=== PATIENT | male | born 1965 | race Caucasian/White ===

== ENCOUNTER 2019-03-02 17:44 | Emergency (ER) | payer MEDICARE, MEDICAID ==
[~2019-03-02] VITALS: Ht 172.7 cm; Wt 86.1 kg
[~2019-03-02 17:44] MED LIST: ALBU17IN INH; ARTHROTEC PO; BUPRPOW2 XX; CEPH2CAP PO; FLEXERIL PO; IBUP600T OR; IBUP80TA PO; NEUR100C OR; PERC10TA26 PO; TRAM50TA2 OR; VICO5TAB OR; VICODINES TAB OR; [UNRECOGNIZED DRUG - OTHER]; suboxone OR; tps cream TD
[2019-03-02] MEDS ORDERED: PRED20TA PO ×2 (17:54→21:07)
[2019-03-02 21:13] VITALS: BP 128/79
== END 2019-03-02 21:14 | disposition home or self-care (01) ==
LOC: M ED 17:44
DX: Z76.0 Encounter for issue of repeat prescription (principal); L30.9 Dermatitis, unspecified; F17.200 Nicotine dependence, unspecified, uncomplicated; Z79.52 Long term (current) use of systemic steroids

== ENCOUNTER 2019-07-16 10:25 | Emergency (ER) | payer MEDICARE, MEDICAID ==
[~2019-07-16] VITALS: Ht 172.7 cm; Wt 87.0 kg
[~2019-07-16 10:25] MED LIST changes: +PRED20TA PO
[2019-07-16] MEDS ORDERED: IPRATROPIUM 0.5MG/ALBUTEROL 2.5MG INH SOL UD 3ML (DUONEB)(J7620) NEB ONE (10:45)
[2019-07-16 10:58] LABS: BASO # 0.1 10^3/uL (0.0-0.2); BASO % 0.7 % (0.0-1.0); EOS # 0.3 10^3/uL (0.0-0.50); EOS % 4.3 % (0.0-3.0); HEMATOCRIT 45.7 % (42.0-52.0); HEMOGLOBIN 15.5 g/dl (13.5-17.5); LYMPH # 1.4 10^3/uL (1.5-4.5); LYMPH % 18.7 % (24.0-44.0); MEAN CORPUSCULAR HEMOGLOBIN 31.5 pg (27.0-33.0); MEAN CORPUSCULAR HGB CONC 33.9 g/dl (32.0-36.5); MEAN CORPUSCULAR VOLUME 92.9 fl (80.0-96.0); MONO # 0.6 10^3/uL (0.0-0.8); MONO % 8.9 % (0.0-5.0); NEUTROPHILS # 4.9 10^3/uL (1.8-7.7); NEUTROPHILS % 67.1 % (36.0-66.0); PLATELET COUNT, AUTOMATED 269 10^3/uL (150-450); RED BLOOD COUNT 4.92 10^6/uL (4.30-6.10); WHITE BLOOD COUNT 7.2 10^3/uL (4.0-10.0)
[2019-07-16 11:17] LABS: BLOOD UREA NITROGEN 12 MG/DL (7-18); CALCIUM LEVEL 9.1 MG/DL (8.5-10.1); CARBON DIOXIDE LEVEL 27 MEQ/L (21-32); CHLORIDE LEVEL 106 MEQ/L (98-107); CREATININE FOR GFR 0.81 MG/DL (0.70-1.30); GLOMERULAR FILTRATION RATE > 60.0 (>56); GLUCOSE, FASTING 101 MG/DL (70-100); POTASSIUM SERUM 4.3 MEQ/L (3.5-5.1); SODIUM LEVEL 139 MEQ/L (136-145)
--- NOTE | 2019-07-16 12:13 | REP ---
REASON: Productive cough. COMPARISON: None. FINDINGS: The superior mediastinal structures are midline. The cardiac silhouette is unremarkable in size, shape, and position. The diaphragmatic surfaces of the lungs are regular, and the costophrenic angles are clear. The pulmonary leal are clear. The imaged osseous structures are intact. IMPRESSION: There is no acute cardiopulmonary disease. Electronically Signed by Harvinder Miller DO 07/16/2019 12:19 P
[2019-07-16] MEDS ORDERED: SYMB16INH INH (12:15)
[2019-07-16] MEDS ORDERED: BENZ200C70 PO (12:15)
[2019-07-16 12:22] VITALS: BP 139/82
== END 2019-07-16 12:23 | disposition home or self-care (01) ==
LOC: M ED 10:25
DX: J40 Bronchitis, not specified as acute or chronic (principal); F17.210 Nicotine dependence, cigarettes, uncomplicated

== ENCOUNTER 2019-08-18 13:21 | Emergency (ER) | payer MEDICARE, MEDICAID ==
[~2019-08-18] VITALS: Ht 172.7 cm; Wt 90.9 kg
[~2019-08-18 13:21] MED LIST changes: +BENZ200C70 PO; +SYMB16INH INH
[2019-08-18] MEDS ORDERED: VENTAER INH (14:10)
[2019-08-18] MEDS ORDERED: ZITHTAB PO (14:10)
[2019-08-18] MEDS ORDERED: PRED20TA PO (14:10)
[2019-08-18 14:33] VITALS: BP 127/82
--- NOTE | 2019-08-18 15:26 | REP ---
CHEST, TWO VIEWS: There is no evidence of acute infiltrate. No pleural effusion is seen. The heart is normal in size. The mediastinal silhouette is unremarkable. The visualized osseous structures are intact. There are mild degenerative changes of the spine. IMPRESSION: No acute pulmonary disease. Electronically Signed by Modesto Wylie MD 08/18/2019 04:01 P
== END 2019-08-18 14:31 | disposition home or self-care (01) ==
LOC: M ED 13:21
DX: J20.9 Acute bronchitis, unspecified (principal); F17.210 Nicotine dependence, cigarettes, uncomplicated

== ENCOUNTER 2019-10-24 13:50 | Emergency (ER) | payer MEDICAID, MEDICARE ==
[~2019-10-24] VITALS: Ht 172.7 cm; Wt 85.8 kg
[~2019-10-24 13:50] MED LIST changes: +VENTAER INH; +ZITHTAB PO
[2019-10-24] MEDS ORDERED: ACET-683 PO (15:30)
[2019-10-24] MEDS ORDERED: CYCL5TAB PO (15:30)
[2019-10-24] MEDS ORDERED: IBUP-1022 PO (15:30)
[2019-10-24] MEDS ORDERED: BACLOFEN 10 MG TAB PO ONE (15:30)
[2019-10-24] MEDS ORDERED: PERCOCET 5MG/325MG TAB PO ONE (15:30)
[2019-10-24] MEDS ORDERED: KETOROLAC 30 MG/ML VIAL (J1885) IM ONE (15:30)
[2019-10-24 15:35] VITALS: BP 120/73
== END 2019-10-24 15:56 | disposition home or self-care (01) ==
LOC: M ED 13:50
DX: G89.29 Other chronic pain (principal); M54.5 Low back pain; M54.6 Pain in thoracic spine; F17.210 Nicotine dependence, cigarettes, uncomplicated
CPT/HCPCS: 96372; 99283; J1885

== ENCOUNTER 2019-12-22 13:41 | Emergency (ER) | payer MEDICARE, MEDICAID ==
[~2019-12-22] VITALS: Ht 175.3 cm; Wt 87.5 kg
[~2019-12-22 13:41] MED LIST changes: +ACET-683 PO; +CYCL5TAB PO; +IBUP-1022 PO
[2019-12-22] MEDS ORDERED: MUCI600T31 PO (13:46)
[2019-12-22 15:00] LABS: INFLUENZA A AMPLIFICATION NEGATIVE (NEGATIVE); INFLUENZA B AMPLIFICATION NEGATIVE (NEGATIVE)
[2019-12-22] MEDS ORDERED: IPRATROPIUM 0.5MG/ALBUTEROL 2.5MG INH SOL UD 3ML (DUONEB)(J7620) NEB ONE (16:15)
[2019-12-22] MEDS ORDERED: ALBUTEROL SULFATE 2.5 MG/0.5 ML INH NEB SOLN INH ONE (16:15)
[2019-12-22] MEDS ORDERED: predniSONE 20 MG TAB PO ONE (16:15)
--- NOTE | 2019-12-22 16:59 | REP ---
CHEST, TWO VIEWS: There is no evidence of acute infiltrate. No pleural effusion is seen. The heart is normal in size. The mediastinal silhouette is unremarkable. The visualized osseous structures are intact. There are degenerative changes of the spine. IMPRESSION: No acute pulmonary disease. Electronically Signed by Modesto Wylie MD 12/23/2019 10:27 P
[2019-12-22] MEDS ORDERED: PRED20TA PO (17:15)
[2019-12-22] MEDS ORDERED: DOXYCYCLINE HYCLATE 100 MG TAB PO ONE (17:15)
[2019-12-22] MEDS ORDERED: PROAAER10 INH (17:15)
[2019-12-22] MEDS ORDERED: DOXY-350 PO (17:15)
[2019-12-22 17:24] VITALS: BP 128/72
== END 2019-12-22 17:30 | disposition home or self-care (01) ==
LOC: M ED 13:41
DX: J20.9 Acute bronchitis, unspecified (principal); J45.909 Unspecified asthma, uncomplicated; R19.7 Diarrhea, unspecified; F17.210 Nicotine dependence, cigarettes, uncomplicated; Z79.51 Long term (current) use of inhaled steroids; Z79.899 Other long term (current) drug therapy

== ENCOUNTER 2020-06-22 18:25 | Emergency (ER) | payer MEDICARE, MEDICAID ==
[~2020-06-22 18:25] MED LIST changes: +DOXY-350 PO; +MUCI600T31 PO; +PROAAER10 INH
[2020-06-22] MEDS ORDERED: NORCO, ANEXSIA 5/325MG TABLET (HYDROcodone/ACETAMINOPHEN) ONE (21:17)
[2020-06-22] MEDS ORDERED: NORCO, ANEXSIA 5/325MG TABLET (HYDROcodone/ACETAMINOPHEN) As Ordered ONE (21:17)
[2020-06-22] MEDS ORDERED: NORCO 5/325MG TABLET (BULK FOR ED) ONE (21:17)
[2020-07-31 09:16] LABS: BASO # 0.1 10^3/uL (0.0-0.2); BASO % 0.9 % (0.0-1.0); EOS # 0.4 10^3/uL (0.0-0.5); EOS % 5.3 % (0.0-3.0); HEMATOCRIT 39.4 % (42.0-52.0); HEMOGLOBIN 13.3 g/dl (13.5-17.5); LYMPH # 1.9 10^3/uL (1.5-5.0); LYMPH % 22.9 % (24.0-44.0); MEAN CORPUSCULAR HEMOGLOBIN 31.6 pg (27.0-33.0); MEAN CORPUSCULAR HGB CONC 33.8 g/dl (32.0-36.5); MEAN CORPUSCULAR VOLUME 93.6 fl (80.0-96.0); MONO # 0.7 10^3/uL (0.0-0.8); MONO % 8.7 % (0.0-5.0); NEUTROPHILS % 61.8 % (36.0-66.0); PLATELET COUNT, AUTOMATED 202 10^3/uL (150-450); RED BLOOD COUNT 4.21 10^6/uL (4.30-6.10); WHITE BLOOD COUNT 8.1 10^3/uL (4.0-10.0)
[2020-07-31 09:21] LABS: ERYTHROCYTE SEDIMENTATION RATE 2 mm/hr (0-20)
[2020-09-04 11:34] LABS: ALBUMIN 3.8 GM/DL (3.2-5.2); ALT/SGPT 29 U/L (12-78); BILIRUBIN,TOTAL 0.3 MG/DL (0.2-1.0); BLOOD UREA NITROGEN 19 MG/DL (7-18); CALCIUM LEVEL 8.4 MG/DL (8.5-10.1); CARBON DIOXIDE LEVEL 29 MEQ/L (21-32); CHLORIDE LEVEL 110 MEQ/L (98-107); CREATININE FOR GFR 0.85 MG/DL (0.70-1.30); GLOMERULAR FILTRATION RATE > 60.0 (>56); GLUCOSE, FASTING 112 MG/DL (70-100); POTASSIUM SERUM 3.8 MEQ/L (3.5-5.1); SODIUM LEVEL 143 MEQ/L (136-145); TOTAL PROTEIN 6.9 GM/DL (6.4-8.2)
== END 2020-06-22 23:48 | disposition home or self-care (01) ==
LOC: M ED 18:25
DX: M25.551 Pain in right hip (principal); F17.210 Nicotine dependence, cigarettes, uncomplicated

== ENCOUNTER 2020-11-24 08:22 | Emergency (ER) | payer SELFPAY ==
[~2020-11-24] VITALS: Ht 172.7 cm; Wt 86.3 kg
[2020-11-24] MEDS ORDERED: predniSONE 20 MG TAB PO ONE (08:45)
[2020-11-24] MEDS ORDERED: FLYP1MIS XX (09:11)
[2020-11-24] MEDS ORDERED: PRED20TA PO (09:12)
[2020-11-24] MEDS ORDERED: ALBU83IN INH (09:12)
--- NOTE | 2020-11-24 09:22 | REP ---
INDICATION: cough COMPARISON: 12/22/2019 TECHNIQUE: Portable AP view of the chest FINDINGS: The mediastinum and cardiac silhouette are stable and within normal limits for portable technique. The lung leal are clear without acute consolidation, effusion, or pneumothorax. Skeletal structures are intact. IMPRESSION: No acute cardiopulmonary process appreciated. <Electronically signed by Alistair Huff > 11/24/20 0918
[2020-11-24 09:54] VITALS: BP 136/91
--- NOTE | 2020-11-24 13:36 | ECGEPIP ---
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
== END 2020-11-24 09:56 | disposition home or self-care (01) ==
LOC: M ED 08:22
DX: J06.9 Acute upper respiratory infection, unspecified (principal); F17.200 Nicotine dependence, unspecified, uncomplicated; Z79.51 Long term (current) use of inhaled steroids; Z79.899 Other long term (current) drug therapy; Z79.52 Long term (current) use of systemic steroids; Z79.1 Long term (current) use of non-steroidal anti-inflammatories (NSAID)
CPT/HCPCS: 71045; 93005; 99284; U0003

== ENCOUNTER → 2021-01-19 | Outpatient (CLI) | payer SELFPAY ==
[~2021-01-19] MED LIST changes: +ALBU83IN INH; +FLYP1MIS XX
== END ==
LOC: M LABSMTC 12:24
PROVIDERS: ATTEND Pediatrics
DX: Z11.52 Encounter for screening for COVID-19 (principal)

== ENCOUNTER → 2021-01-30 | Outpatient (CLI) | payer SELFPAY | LOC: M LABSMTC 10:19 | PROVIDERS: ATTEND Family Medicine | DX: Z20.822 Contact with and (suspected) exposure to COVID-19 (principal) | CPT/HCPCS: C9803; U0003 ==

== ENCOUNTER 2021-04-10 06:50 | Emergency (ER) | payer SELFPAY ==
[~2021-04-10] VITALS: Ht 175.3 cm; Wt 77.8 kg
[2021-04-10] MEDS ORDERED: methylPREDNISolone 125MG 2ML VIAL IV ONE (07:45)
[2021-04-10] MEDS ORDERED: LEVALBUTEROL HFA 45MCG/ACT 15 GM INHALER INH ONE (07:45)
[2021-04-10] MEDS ORDERED: NS 1,000 ML IV ONE (07:45)
[2021-04-10 08:35] LABS: BASO # 0.1 10^3/uL (0.0-0.2); BASO % 0.6 % (0.0-1.0); EOS # 0.8 10^3/uL (0.0-0.5); EOS % 9.7 % (0.0-3.0); HEMATOCRIT 43.1 % (42.0-52.0); LYMPH # 0.9 10^3/uL (1.5-5.0); LYMPH % 10.8 % (24.0-44.0); MEAN CORPUSCULAR HEMOGLOBIN 30.2 pg (27.0-33.0); MEAN CORPUSCULAR HGB CONC 32.5 g/dl (32.0-36.5); MEAN CORPUSCULAR VOLUME 93.1 fl (80.0-96.0); MONO # 0.7 10^3/uL (0.0-0.8); MONO % 8.9 % (2.0-8.0); NEUTROPHILS # 5.7 10^3/uL (1.5-8.5); NEUTROPHILS % 69.6 % (36.0-66.0); PLATELET COUNT, AUTOMATED 228 10^3/uL (150-450); RED BLOOD COUNT 4.63 10^6/uL (4.30-6.10); WHITE BLOOD COUNT 8.2 10^3/uL (4.0-10.0)
[2021-04-10] MEDS ORDERED: guaiFENesin ER 600 MG TAB PO SCH (09:00)
[2021-04-10 09:01] LABS: ALBUMIN 3.4 GM/DL (3.2-5.2); ALT/SGPT 32 U/L (12-78); BILIRUBIN,DIRECT < 0.1 MG/DL (0.0-0.2); BILIRUBIN,TOTAL 0.1 MG/DL (0.2-1.0); BLOOD UREA NITROGEN 15 MG/DL (7-18); CALCIUM LEVEL 8.8 MG/DL (8.5-10.1); CARBON DIOXIDE LEVEL 28 MEQ/L (21-32); CHLORIDE LEVEL 107 MEQ/L (98-107); CREATININE FOR GFR 0.78 MG/DL (0.70-1.30); GLOMERULAR FILTRATION RATE > 60.0 (>56); GLUCOSE, FASTING 111 MG/DL (70-100); POTASSIUM SERUM 4.4 MEQ/L (3.5-5.1); SODIUM LEVEL 141 MEQ/L (136-145); TOTAL PROTEIN 6.8 GM/DL (6.4-8.2)
--- NOTE | 2021-04-10 09:05 | REP ---
INDICATION: DYSPNEA/COUGH COMPARISON: 11/24/2020. TECHNIQUE: PA/Lateral FINDINGS: Lungs: Clear, no infiltrate. Heart: Normal in size. Mediastinum: Mediastinal silhouette unremarkable. Pleural angles: Unremarkable.. Bones and soft tissues: There are degenerative changes of the spine. There is a mild compression deformity of a midthoracic vertebral body which is stable. IMPRESSION: No acute pulmonary disease. <Electronically signed by Modesto Wylie > 04/10/21 0901
[2021-04-10] MEDS ORDERED: KETOROLAC 30 MG/ML 1ML VIAL IV ONE (09:40)
[2021-04-10] MEDS ORDERED: ISOVUE-370 76% 100ML VIAL As Ordered ONE (09:51)
--- NOTE | 2021-04-10 10:27 | REP ---
INDICATION: pleuritic cp r/o PE. COMPARISON: Radiographs today. TECHNIQUE: CT angiogram chest performed following the intravenous administration of 100 cc of Isovue 370. Sagittal and coronal reconstruction images are performed. FINDINGS: Lungs: There are mild patchy biapical peripheral infiltrates. There are mild patchy areas of opacity in both lower lobes, right greater than left, representing atelectasis or infiltrate. There is calcified granuloma in the right lower lobe. Mediastinum: No adenopathy. Pulmonary arteries: No evidence of pulmonary embolism. Maria E: No adenopathy. Axilla: No adenopathy. Pleura: No effusion. Heart: Not enlarged. Thoracic aorta: No aneurysm or dissection. Upper abdominal structures: There is a small hiatal hernia. There are calcified granulomas in the spleen. Visualized osseous structures: There are degenerative changes of the spine. Mild old compression deformity of a midthoracic vertebral body is stable. IMPRESSION: No CT evidence of pulmonary embolism. Mild patchy biapical infiltrates. Mild patchy opacities in both lower lobes, right greater than left, representing atelectasis or infiltrate. COVID pneumonia is possible. <Electronically signed by Modesto Wylie > 04/10/21 1024
[2021-04-10] MEDS ORDERED: ALBUTEROL 90 MCG/ACT 8GM HFA INHALER INH ONE (10:50)
[2021-04-10] MEDS ORDERED: DOXYCYCLINE HYCLATE 100MG TABLET PO ONE (10:55)
[2021-04-10] MEDS ORDERED: DOXY100C37 PO (10:59)
[2021-04-10] MEDS ORDERED: MUCI600T31 PO (11:00)
[2021-04-10] MEDS ORDERED: ALBU8.5H INH (11:01)
[2021-04-10] MEDS ORDERED: MEDR1TAB PO (11:02)
[2021-04-10] MEDS ORDERED: PRED20TA PO (11:06)
[2021-04-10 11:57] VITALS: BP 151/90
== END 2021-04-10 11:59 | disposition home or self-care (01) ==
LOC: M ED 06:50
DX: J84.114 Acute interstitial pneumonitis (principal)
CPT/HCPCS: 71046; 71275; 80048; 80076; 85025; 87798; 87880; 94640; 96361; 96374; 99284; J1885; J2930; Q9967

== ENCOUNTER 2021-05-23 08:52 | Emergency (ER) | payer OTHER, MEDICAID ==
[~2021-05-23] VITALS: Ht 172.7 cm; Wt 84.1 kg
[2021-05-23 08:52] VITALS: BP 131/76
[~2021-05-23 08:52] MED LIST changes: +ALBU8.5H INH; +DOXY1CAP62 PO; +MEDR1TAB PO
[2021-05-23 10:53] LABS: BASO # 0.1 10^3/uL (0.0-0.2); BASO % 1.1 % (0.0-1.0); EOS # 0.2 10^3/uL (0.0-0.5); EOS % 2.4 % (0.0-3.0); HEMATOCRIT 48.5 % (42.0-52.0); HEMOGLOBIN 15.8 g/dl (13.5-17.5); LYMPH # 1.7 10^3/uL (1.5-5.0); LYMPH % 21.1 % (24.0-44.0); MEAN CORPUSCULAR HEMOGLOBIN 30.9 pg (27.0-33.0); MEAN CORPUSCULAR HGB CONC 32.6 g/dl (32.0-36.5); MEAN CORPUSCULAR VOLUME 94.9 fl (80.0-96.0); MONO # 0.6 10^3/uL (0.0-0.8); MONO % 8.1 % (2.0-8.0); NEUTROPHILS # 5.2 10^3/uL (1.5-8.5); NEUTROPHILS % 66.7 % (36.0-66.0); PLATELET COUNT, AUTOMATED 268 10^3/uL (150-450); RED BLOOD COUNT 5.11 10^6/uL (4.30-6.10); WHITE BLOOD COUNT 7.9 10^3/uL (4.0-10.0)
[2021-05-23 11:21] LABS: ALBUMIN 4.1 GM/DL (3.2-5.2); ALT/SGPT 30 U/L (12-78); BILIRUBIN,TOTAL 0.3 MG/DL (0.2-1.0); BLOOD UREA NITROGEN 10 MG/DL (7-18); CALCIUM LEVEL 9.1 MG/DL (8.5-10.1); CARBON DIOXIDE LEVEL 30 MEQ/L (21-32); CHLORIDE LEVEL 107 MEQ/L (98-107); CREATININE FOR GFR 0.74 MG/DL (0.70-1.30); GLOMERULAR FILTRATION RATE > 60.0 (>56); GLUCOSE, FASTING 91 MG/DL (70-100); POTASSIUM SERUM 4.5 MEQ/L (3.5-5.1); SODIUM LEVEL 140 MEQ/L (136-145); TOTAL PROTEIN 7.8 GM/DL (6.4-8.2)
[2021-05-23 11:42] LABS: HEPATITIS B SURFACE ANTIGEN NEGATIVE (NEGATIVE)
[2021-05-23 12:10] LABS: HEPATITIS B CORE ANTIBODY IGM NEGATIVE (NEGATIVE); HIV 1&2 SCREEN CENTAUR NEGATIVE (NEGATIVE)
[2021-05-23 12:11] LABS: HEPATITIS A ANTIBODY IGM NEGATIVE (NEGATIVE)
[2021-05-23 12:14] LABS: HEPATITIS C VIRUS ABY INDEX > 11.0 INDEX (<0.8)
== END 2021-05-23 10:56 | disposition home or self-care (01) ==
LOC: M ED 08:52
DX: B18.2 Chronic viral hepatitis C (principal)

== ENCOUNTER → 2021-05-24 | Outpatient (CLI) | payer MEDICAID | LOC: M OUTALCOH 07:34 | PROVIDERS: ATTEND Psychiatry & Neurology Psychiatry | DX: F11.20 Opioid dependence, uncomplicated (principal) ==

== ENCOUNTER 2021-06-12 13:00 | Outpatient (RCR) | payer OTHER, MEDICAID | END 2021-06-24 | LOC: M OUTALCOH 13:00 | PROVIDERS: ATTEND Psychiatry & Neurology Psychiatry | DX: F11.20 Opioid dependence, uncomplicated (principal); F12.10 Cannabis abuse, uncomplicated; F17.200 Nicotine dependence, unspecified, uncomplicated | CPT/HCPCS: 90834; H0038 ==

== ENCOUNTER → 2021-08-22 | Outpatient (REF) ==
--- NOTE | 2021-08-22 13:00 | REP ---
INDICATION: RT LEG + BACK PAIN COMPARISON: 02/22/2012 TECHNIQUE: AP, lateral, coned-down views of the lumbar spine. FINDINGS: Advanced multilevel degenerative changes are appreciated which appear slightly more progressive when compared to prior examination. Findings include endplate sclerosis, osteophytosis, hypertrophic facet changes, as well as chronic spondylolysis at L4-5 and L5-S1 as well as chronic compression fracture deformity at L5. IMPRESSION: Progressive advanced multilevel degenerative spondylosis. <Electronically signed by Alistair Huff > 08/22/21 1257
--- NOTE | 2021-08-22 13:06 | REP ---
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 Hardware appears in satisfactory stable position. Osseous structures are relatively normal with evidence for healed fracture of the distal femur. No acute abnormality identified by radiographic evaluation. IMPRESSION: Stable chronic posttraumatic and postoperative changes. No evidence for acute process by radiographic evaluation. <Electronically signed by Alistair Huff > 08/22/21 3494
== END ==
LOC: M PLAIMG 11:16
PROVIDERS: ATTEND Internal Medicine
DX: Z00.00 Encounter for general adult medical examination without abnormal findings (principal)

== ENCOUNTER 2021-09-30 08:16 | Inpatient (IN) | payer MEDICAID, MEDICARE ==
[~2021-09-30] VITALS: Ht 172.7 cm; Wt 85.0 kg
[~2021-09-30 08:16] MED LIST changes: +DOXY-443 PO; -DOXY1CAP62 PO
--- OUTSIDE RECORDS SUMMARY | 2021-09-30 08:21 | CCD ---
Author Author [facility] Organization [facility] Address Unknown Phone Unavailable Care Team Providers Care Transplanter Orchid Name Role Phone PAULA MARTIN MD Unavailable Unavailable PAULA MARTIN MD Unavailable Unavailable PAULA MARTIN MD Unavailable Unavailable PAULA MARTIN MD Unavailable Unavailable PAULA MARTIN MD Unavailable Unavailable PAULA MARTIN MD Unavailable Unavailable PAULA MARTIN MD Unavailable Unavailable Yesenia Martin MD Unavailable Unavailable Joey Pabon PA-C Unavailable Unavailable Joey Pabonophluis PA-C Unavailable Unavailable Joey Pabonophluis PA-C Unavailable Unavailable Joey Pabon Christopher PA-C Unavailable Unavailable Joey Pabonopher PA-C Unavailable Unavailable Joey Pabon Christopher PA-C Unavailable Unavailable Joey Pabon Christopher PA-C Unavailable Unavailable Joey Pabon Christopher PA-C Unavailable Unavailable Joey Pabon Christopher PA-C Unavailable Unavailable Joey Pabon Christopher PA-C Unavailable Unavailable Joey Pabon Christopher PA-C Unavailable Unavailable Joey Pabon Christopher PA-C Unavailable Unavailable Pabon, M Christopher PA-C Unavailable Unavailable Pabon, M Christopher PA-C Unavailable Unavailable Pabon, M Christopher PA-C Unavailable Unavailable Pabon, M Christopher PA-C Unavailable Unavailable Pabon, M Christopher PA-C Unavailable Unavailable Pabon, M Christopher PA-C Unavailable Unavailable Pabon, M Christopher PA-C Unavailable Unavailable Pabon, M Christopher PA-C Unavailable Unavailable Pabon, M Christopher PA-C Unavailable Unavailable Pabon, M Christopher PA-C Unavailable Unavailable Pabon, M Christopher PA-C Unavailable Unavailable Pabon, M Christopher PA-C Unavailable Unavailable Pabon, M Christopher PA-C Unavailable Unavailable Pabon, M Christopher PA-C Unavailable Unavailable Re-disclosure Warning The records that you are about to access may contain information from federally-assisted alcohol or drug abuse programs. If such information is present, then the following federally mandated warning applies: This information has been disclosed to you from records protected by federal confidentiality rules (42 CFR part 2). The federal rules prohibit you from making any further disclosure of this information unless further disclosure is expressly permitted by the written consent of the person to whom it pertains or as otherwise permitted by 42 CFR part 2. A general authorization for the release of medical or other information is NOT sufficient for this purpose. The Federal rules restrict any use of the information to criminally investigate or prosecute any alcohol or drug abuse patient.The records that you are about to access may contain highly sensitive health information, the redisclosure of which is protected by Article 27-F of the [facility] Public Health law. If you continue you may have access to information: Regarding HIV / AIDS; Provided by facilities licensed or operated by the [facility] Office of Mental Health; or Provided by the [facility] Office for People With Developmental Disabilities. If such information is present, then the following [facility] mandated warning applies: This information has been disclosed to you from confidential records which are protected by state law. State law prohibits you from making any further disclosure of this information without the specific written consent of the person to whom it pertains, or as otherwise permitted by law. Any unauthorized further disclosure in violation of state law may result in a fine or nursing home sentence or both. A general authorization for the release of medical or other information is NOT sufficient authorization for further disc losure. Allergies and Adverse Reactions Type Description Substance Reaction Status Data Source(s ) Drug allergy Drug allergy No Known Allergies [facility] Family History Family Member Name Family Member Gender Family Member Status Date o f Status Description Data Source(s) Unknown Unknown Encounters Encounter Providers Location Date Indications Data Source(s ) Outpatient 08/09/2021 02:40:19 PM EDT [facility] ([facility]) Outpatient Attender: Yefri Pabon PA-C 08/09/2021 02:39:46 PM EDT - 08/09/2021 04:26:50 PM EDT [facility] ([facility]) Outpatient 08/09/2021 01:56:10 PM EDT [facility] ([facility]) [place] [address] [address] 06/15/2021 12:00:00 AM EDT eCW1 ([facility]) [place] [address] [address] 06/15/2021 12:00:00 AM EDT eCW1 ([facility]) Inpatient Attender: Paula Murillo nder: PAULA MARTIN MDAdmitter: PAULA MARTIN MD [facility] 05/19/2021 07:01:00 PM EDT - 05/20/2021 11:05:00 AM EDT PSYCHOACTIVE SUBSTANCE DEPENDENCE [facility] PSYCHOACTIVE SUBSTANCE DEPENDENCE Patient discharged. Immunizations Vaccine Date Status Description Data Source(s) Moderna #2 dose COVID-19(given elsewhere) SARSCOV2 VAC 100MCG/0.5ML IM 03/13/2021 03:12:00 PM EDT completed eCW1 ([facility]) Moderna #2 dose COVID-19(given elsewhere) SARSCOV2 VAC 100MCG/0.5ML IM 03/13/2021 03:12:00 PM EDT completed eCW1 ([facility]) COVID-19 VACCINE Moderna 03/13/2021 12:00:00 AM EDT completed [facility] Vaccine Series Complete: YESThis Data wa s Submitted to [facility] Via [facility]. Moderna #1 dose COVID-19(given elsewhere) SARSCOV2 VAC 100MCG/0.5ML IM 02/10/2021 03:11:00 PM EDT completed eCW1 ([facility]) Moderna #1 dose COVID-19(given elsewhere) SARSCOV2 VAC 100MCG/0.5ML IM 02/10/2021 03:11:00 PM EDT completed eCW1 ([facility]) COVID-19 VACCINE Moderna 02/10/2021 12:00:00 AM EDT completed [facility] Vaccine Series Complete: NOThis Data was Submitted to [facility] Via Jack Erwin. Medications No Information Insurance Providers Payer name Policy type / Coverage type Policy ID Covered alliance party ID Covered alliance party's relationship to carlos Policy Carlos Plan Information MEDICAID M [id number] Self [id number] MEDICARE [id number] SP [id number] A MEDICARE [id number] SP [id number] A MEDICAID [id number] SP [id number] [facility] Medicare Medicare Part B [id number] Self [id number] Medicaid Medicaid [id number] Self [id number] MEDICARE [id number] SP [id number] EMEDNY [id number] SP [id number] MEDICARE C [id number] S [id number] MEDICAID M [id number] S [id number] MEDICAID [id number] SP [id number] MEDICARE [id number] SP [id number] MEDICARE [id number] SP [id number] A Medicare Natl Gov't Servi Medicare Primary [id number] Self MEDICAID - O/P EMERGENCY ROOM [id number] 18 [id number] MEDICARE PART A -O/P [id number] 18 [id number] SELF PAY UNAVAILABLE SP UNAVAILA BLE OTHER WORKERS COMPENSATION [id number] SP [id number] MEDICAID - CLINIC [id number] EV [id number] MEDICAID-PHYSICIAN [id number] E [id number] MEDICAID-O/P RAD ONLY [id number] 18 [id number] MEDICAID-O/P [id number] [place] [id number] SP [id number] T [id number] MEDICARE [id number] A [facility] [id number] MEDICAID [id number] Unemployed [id number] MEDICARE [id number] Unemployed [id number] SELF PAY ONLY [id number] Problems, Conditions, and Diagnoses Code Display Name Description Problem Type Effective Dates Data Source(s) J44.9 Chronic obstructive pulmonary disease, u nspecified CHRONIC OBSTRUCTIVE PULMONARY DISEASE, UNSPECIFIED Diagnosis 05/19/2021 07:01:[address] [facility] Z53.29 Procedure and treatment not carried out because of patient's decision for other reasons PROC/TRTMT NOT CRD OUT BEC PT DECISION FOR OTH REASONS Diagn osis 05/19/2021 07:01:00 PM EDT [facility] F17.210 Nicotine dependence, cigarettes, uncompl icated NICOTINE DEPENDENCE, CIGARETTES, UNCOMPLICATED Diagnosis 05/19/2021 07:01:00 PM EDT [facility] F12.20 Cannabis dependence, uncomplicated CANNABIS DEPE NDENCE, UNCOMPLICATED Diagnosis 05/19/2021 07:01:00 PM EDT [facility] F11.20 Opioid dependence, uncomplicated OPIOID DEPENDEN CE, UNCOMPLICATED Diagnosis 05/19/2021 07:01:00 PM EDT [facility] F11.21 [id number] Opioid dependence in remission Problem 06/15/2021 12:00:00 AM EDT eC1 ([facility]) B19.20 [id number] Hepatitis C virus in fection without hepatic coma, unspecified chronicity Problem 06/15/2021 12:00:00 AM EDT eCW1 ([facility]) Surgeries/Procedures No Information Results ID Date Data Source [id number] 08/09/2021 03:00:00 PM EDT [facility] Name Value Range Interpretation Code Description Data Kamila rce(s) Supporting Document(s) SARS-CoV-2 RNA Resp Ql JOANNA+probe NOT DETECTED [facility] This lab was ordered by ALYCE werner and reported by [facility]. ID Date Data Source [id number] 05/24/2021 11:16:00 PM EDT [facility] Name Value Range Interpretation Code Description Data Kamila rce(s) Supporting Document(s) Cannabinoids Confirm,Ur result . Very abnor mal (applies to non-numeric units [facility] Carboxy THC GC/MS Conf 22 ng/mL Cutoff=10 01 Performed at: [facility] [id number] Cell Changer: Yanira Cox MD, Phone: [phone] ID Date Data Source [id number] 05/19/2021 09:03:00 PM EDT [facility] Name Value Range Interpretation Code Description Data Kamila rce(s) Supporting Document(s) Opiate Screen,Urine Negative Normal (applies to non-nume candy results) [facility] Amphetamine Screen,Urine Negative Normal (applies to non -numeric results) [facility] Benzodiazepines Scrn,Ur result Negative N ormal (applies to non-numeric results) [facility] Cocaine Screen,Urine Negative Normal (applies to non-num lucas results) [facility] Methadone Screen,Urine Negative Normal (applies to non-n umeric results) [facility] Cannabinoid Screen, Ur Negative Londono [facility] Therapeutic Drug Ranges for Emergency an d Rehabilitation Threshold Levels (ng/mL) Cocaine 300 Opiates 300 Cannabinoids 50 Barbiturates 200 Benzodiazepine 200 Methadone 300 Amphetamines 1000 All positive find ings are presumptive and unconfirmed. Confirmation of positive results are performed only at request of provider. Unconfirmed results must not be used for non-medical purposes (i.e. pre-employment and legal purposes) ID Date Data Source [id number] 05/19/2021 08:48:00 PM EDT [facility] Name Value Range Interpretation Code Description Data Kamila rce(s) Supporting Document(s) Color,Urine Yellow Normal (applies to non-numeric resu lts) [facility] Clarity,Urine Clear Normal (applies to non-numeric re sults) [facility] Specific [place],Urine 1.001-1.030 Normal (applies to non- numeric results) [facility] PH,Urine 5.0-8.0 Normal (applies to non-numeric resul ts) [facility] Protein,Urine Negative Normal (applies to non-numeric re sults) [facility] Glucose,Urine (UA) Negative Normal (applies to non-numer ic results) [facility] Ketones,Urine Negative Normal (applies to non-numeric re sults) [facility] Blood,Urine Negative Normal (applies to non-numeric resu lts) [facility] Bilirubin,Urine Negative Normal (applies to non-numeric results) [facility] Urobilinogen,Urine Norm 0.2-1 Normal (applies to non-numer ic results) [facility] Leukocyte Esterase,Urine Negative Normal (applies to non -numeric results) [facility] Nitrite,Urine Negative Normal (applies to non-numeric re sults) [facility] ID Date Data Source [id number] 05/19/2021 07:10:[address] [facility] Name Value Range Interpretation Code Description Data Kamila rce(s) Supporting Document(s) Respiratory specimen severe acute respir atory syndrome coronavirus 2 (SARS-CoV-2) RNA Negative (qualifier value) [facility] This lab was ordered by [facility] miah and reported by [facility]. ID Date Data Source [id number] 05/19/2021 07:55:00 PM EDT [facility] Negative results should be treated as pr esumptive and, if inconsistent with clinical signs and symptoms or necessary for patient management, should be tested with different authorized or cleared molecular tests. Negative results do not preclude SARS-CoV-2 infection and should not be used as the sole basis for patient management decisions. Negative results should be considered in the context of a patients recent exposures, history and the presence of clinical signs and symptoms consistent with COVID-19. This test has not been FDA cleared or approved; this test has been authorized by FDA under an Emergency Use Authorization for use by laboratories certified under the Clinical Laboratory Improvement Amendments of 1988 (CLIA), 42 U.S.C. 263a, to perform moderate complexity/high complexity tests and at the Point of Care (POC), i.e., in patient care settings operating under a CLIA Certificate of Waiver, Certificate of Compliance, or Certificate of Accreditation. Factsheets for healthcare providers: https://www.fda.gov/media/237255/download Factsheets for patients: https://www.fda.gov/media/309309/download The ID NOW Instrument is a rapid molecular in vitro diagnostic test utilizing an isothermal nucleic acid amplification technology intended for the qualitative detection of nucleic acid from the SARS-CoV-2 viral RNA. THIS IS A STATE REPORTABLE COMMUNICABLE DISEASE. Manual entry verified by Itzel Lowe 05/19/211953 Test Performed By: [facility] [address] [place] [address] Director: Colleen Rudolph MD Name Value Range Interpretation Code Description Data Kamila rce(s) Supporting Document(s) ID Date Data Source [id number] 04/10/2021 08:11:00 AM EDT [facility] Name Value Range Interpretation Code Description Data Kamila rce(s) Supporting Document(s) SARS-CoV-2 (COVID 19) NEGATIVE - SARS-CoV-2 (COVID19) [facility] This lab was ordered by [facility] a nd reported by [facility]. ID Date Data Source [id number] 01/30/2021 10:45:00 AM EST [facility] Name Value Range Interpretation Code Description Data Kamila rce(s) Supporting Document(s) SARS coronavirus 2 RNA Not Detected [facility] This lab was ordered by [facility] and reported by [facility]. ID Date Data Source [id number] 01/19/2021 12:24:00 PM EST [facility] Name Value Range Interpretation Code Description Data Kamila rce(s) Supporting Document(s) SARS-CoV-2 (COVID-19) RNA [Presence] in Respiratory specimen by JOANNA with probe detection Not Detected [facility] This lab was ordered by [facility] and reported by [employer] ID Date Data Source [id number] 11/24/2020 08:51:00 AM EST [facility] Name Value Range Interpretation Code Description Data Kamila rce(s) Supporting Document(s) SARS coronavirus 2 RNA [facility] This lab was ordered by [facility] and reported by [facility]. Procedure Social History Code Duration Value Status Description Data Source(s ) Smoking 06/15/2021 12:00:00 AM EDT Current Smoker completed Curre nt Smoker eCW1 ([facility]) Smoking 06/15/2021 12:00:00 AM EDT Current Smoker completed Curre nt Smoker eCW1 ([facility]) Vital Signs ID Date Data Source UNK Name Value Range Interpretation Code Description Data Source(s) Body weight 185 [lb_av] 185 [lb_av] eCW1 ([facility]) Body height 67 [in_i] 67 [in_i] eCW1 ([facility]) Body mass index (BMI) [Ratio] 28.97 kg/m2 28.97 kg/m2 eCW1 ([facility]) Heart rate 76 /min 76 /min eCW1 ([facility]) Respiratory rate 18 /min 18 /min eCW1 ([facility]) Body temperature 97.6 [degF] 97.6 [degF] eCW1 ( [facility]) Systolic blood pressure 144 mm[Hg] 144 mm[Hg] e CW1 ([facility]) Diastolic blood pressure 78 mm[Hg] 78 mm[Hg] eCW1 ([facility]) ID Date Data Source [id number] 06/15/2021 07:40:00 AM EDT [facility] Name Value Range Interpretation Code Description Data Source(s) Weight Measurement Method 7 7 [facility] Weight (Calculated Kilograms) 81.19 81.19 [facility] Weight 2864 2864 [facility] Temperature Source 7 7 [facility] Temperature 97.2 97.2 [facility] Respiratory Effort 1 1 [facility] Respiratory Rate 16 16 [facility] Pulse Assessment Method 4 [address] [facility] Pulse Rate 75 75 [facility] Height (Calculated Centimeters) 172.72 172. 72 [facility] Height 68 68 [facility] Blood Pressure 134/83 134/83 [facility] Body Mass Index (BMI) 27.2 27.2 [facility] Weight Measurement Method 7 7 [facility] Weight (Calculated Kilograms) 81.19 81.19 [facility] Weight 2864 2864 [facility] Temperature Source 7 7 [facility] Temperature 97.2 97.2 [facility] Respiratory Effort 1 1 [facility] Respiratory Rate 16 16 [facility] Pulse Assessment Method 4 4 C [facility] Pulse Rate 75 75 [facility] Height (Calculated Centimeters) 172.72 172. 72 [facility] Height 68 68 [facility] Blood Pressure 134/83 134/83 [facility] Body Mass Index (BMI) 27.2 27.2 [facility] Weight (Calculated Kilograms) 88.45 88.45 [facility] Height (Calculated Centimeters) 175.26 175. 26 [facility] Body Mass Index (BMI) 28.8 28.8 [facility]
[2021-09-30] MEDS ORDERED: NS 1,000 ML IV ONE ×2 (08:45→10:20)
[2021-09-30] MEDS ORDERED: VANCOMYCIN HCL 750 MG, VIAL MATE ADAPTER 1 EACH in NS 250 ML IV ONE ×6 (08:45)
[2021-09-30] MEDS ORDERED: MORPHINE 4 MG/ML 1ML VIAL/SYRINGE (J2270) IV ONE (08:45)
[2021-09-30] MEDS ORDERED: ONDANSETRON 4MG/2ML VIAL IV ONE (08:45)
[2021-09-30] MEDS ORDERED: VANCOMYCIN HCL 1,500 MG in NS 250 ML IV ONE (08:45)
[2021-09-30] MEDS ORDERED: PIPERACILLIN/TAZOBACTAM SOD 4.5 GM in D5W MINI-BAG PLUS 50 ML IV ONE (08:50)
[2021-09-30 09:03] LABS: BASO # 0.1 10^3/uL (0.0-0.2); BASO % 0.4 % (0.0-1.0); HEMATOCRIT 45.5 % (42.0-52.0); HEMOGLOBIN 15.6 g/dl (13.5-17.5); LYMPH # 0.9 10^3/uL (1.5-5.0); LYMPH % 4.2 % (24.0-44.0); MEAN CORPUSCULAR HEMOGLOBIN 31.2 pg (27.0-33.0); MEAN CORPUSCULAR HGB CONC 34.3 g/dl (32.0-36.5); MONO # 1.7 10^3/uL (0.0-0.8); MONO % 7.6 % (2.0-8.0); NEUTROPHILS # 19.3 10^3/uL (1.5-8.5); PLATELET COUNT, AUTOMATED 277 10^3/uL (150-450); WHITE BLOOD COUNT 22.4 10^3/uL (4.0-10.0)
[2021-09-30] MEDS ORDERED: ISOVUE-370 76% 100ML VIAL As Ordered ONE (09:10)
--- NOTE | 2021-09-30 09:23 | REP ---
INDICATION: trauma. COMPARISON: None. TECHNIQUE: Two views FINDINGS: At the level of the junction of the middle and distal 1/3 of the humerus in the anterior soft tissues of the upper arm there is a large focus of subcutaneous air in the deep soft tissues, up to 8 x 4.7 cm. I do not see any other air nor any acute bony finding. There are degenerative changes at the glenohumeral and AC joint. Surgical clips seen in the proximal forearm. IMPRESSION: 1. Air in the soft tissues of the distal half of the forearm at the junction of the middle and distal 1/3 of the humerus in those anterior soft tissues. This is highly suspicious for soft tissue/muscular abscess. <Electronically signed by Keanu Johnson > 09/30/21 0919
--- OUTSIDE RECORDS SUMMARY | 2021-09-30 09:25 | CCD ---
Author Author [facility] Organization [facility] Address Unknown Phone Unavailable Care Team Providers Care Management Expert Name Role Phone PAULA MARTIN MD Unavailable [...] is protected by Article 27-F of the [facility] Public Health law. If you continue you may have access to information: Regarding HIV / AIDS; Provided by facilities licensed or operated by the [facility] Office of Mental Health; or Provided by the [facility] Office for People With Developmental Disabilities. If such information is present, then the following [facility] mandated warning applies: This information has been [...] law may result in a fine or detention sentence or both. A general authorization for the release of medical or other information is NOT sufficient authorization for further disc losure. Allergies and Adverse Reactions Type Description Substance Reaction Status Data Source(s ) Drug allergy Drug allergy No Known Allergies [facility] Family History Family Member Name Family Member Gender Family Member Status Date o f Status Description Data Source(s) Unknown Unknown Encounters Encounter Providers Location Date Indications Data Source(s ) Outpatient 08/09/2021 02:40:19 PM EDT [facility] ([facility]) Outpatient Attender: Yefri Pabon PA-C 08/09/2021 02:39:46 PM EDT - 08/09/2021 04:26:50 PM EDT [facility] ([facility]) Outpatient 08/09/2021 01:56:10 PM EDT [facility] ([facility]) Outpatient [address] [facility] [address] 06/15/2021 12:00:00 AM EDT eCW1 ([facility]) Unknown [address] [address] 06/15/2021 12:00:00 AM EDT eCW1 ([facility]) Inpatient Attender: Paula Murillo nder: PAULA MARTIN MDAdmitter: PAULA MARTIN MD [facility] 05/19/2021 07:01:00 PM EDT - 05/20/2021 11:05:00 AM EDT PSYCHOACTIVE SUBSTANCE DEPENDENCE [facility] PSYCHOACTIVE SUBSTANCE DEPENDENCE Patient discharged. Immunizations Vaccine Date Status Description Data Source(s) Moderna #2 dose COVID-19(given elsewhere) SARSCOV2 VAC 100MCG/0.5ML IM 03/13/2021 03:12:00 PM EDT completed eCW1 ([facility]) Moderna #2 dose COVID-19(given elsewhere) SARSCOV2 VAC 100MCG/0.5ML IM 03/13/2021 03:12:00 PM EDT completed eCW1 ([facility]) COVID-19 VACCINE Moderna 03/13/2021 12:00:00 AM EDT completed [facility] Vaccine Series Complete: YESThis Data wa s Submitted to [facility] Via [facility]. Moderna #1 dose COVID-19(given elsewhere) SARSCOV2 VAC 100MCG/0.5ML IM 02/10/2021 03:11:00 PM EDT completed eCW1 ([facility]) Moderna #1 dose COVID-19(given elsewhere) SARSCOV2 VAC 100MCG/0.5ML IM 02/10/2021 03:11:00 PM EDT completed eCW1 ([facility]) COVID-19 VACCINE Moderna 02/10/2021 12:00:00 AM EDT completed [facility] Vaccine Series Complete: NOThis Data was Submitted to [facility] Via Nichewith. Medications No Information Insurance Providers Payer name Policy type / Coverage type Policy ID Covered green party ID Covered green party's relationship to carlos Policy Carlos Plan Information MEDICAID M [id number] Self [id number] MEDICARE [id number] SP [id number] A MEDICARE [id number] SP [id number] A MEDICAID [id number] SP [id number] [facility] Medicare Medicare Part B [id number] Self [id number] Medicaid Medicaid [id number] Self [id number] MEDICARE [id number] SP [id number] [place] [id number] SP [id number] MEDICARE C [id number] S [id number] MEDICAID M [id number] S [id number] MEDICAID [id number] SP [id number] MEDICARE [id number] SP [id number] MEDICARE [id number] SP [id number] A Medicare Natl Gov't Servi Medicare Primary [id number] Self MEDICAID - O/P EMERGENCY ROOM [id number] 18 [id number] MEDICARE PART A -O/P [id number] 18 [id number] SELF PAY UNAVAILABLE SP UNAVAILA BLE OTHER WORKERS COMPENSATION [id number] SP [id number] MEDICAID - CLINIC [id number] MEDICAID-PHYSICIAN [id number] MEDICAID-O/P RAD ONLY [id number] MEDICAID-O/P [id number] 18 [id number] [id number] SP [id number] T [id number] MEDICARE [id number] A [facility] [id number] MEDICAID [id number] Unemployed [id number] MEDICARE [id number] Unemployed [id number] SELF PAY ONLY [id number] Problems, Conditions, and Diagnoses Code Display Name Description Problem Type Effective Dates Data Source(s) J44.9 Chronic obstructive pulmonary disease, u nspecified CHRONIC OBSTRUCTIVE PULMONARY DISEASE, UNSPECIFIED Diagnosis 05/19/2021 07:01:00 PM EDT [facility] Z53.29 Procedure and treatment not carried out because of patient's decision for other reasons PROC/TRTMT NOT CRD OUT BEC PT DECISION FOR OTH REASONS Diagn osis 05/19/2021 07:01:00 PM EDT [facility] F17.210 Nicotine dependence, cigarettes, uncompl icated NICOTINE DEPENDENCE, CIGARETTES, UNCOMPLICATED Diagnosis 05/19/2021 07:01:00 PM EDT [facility] F12.20 Cannabis dependence, uncomplicated CANNABIS DEPE NDENCE, UNCOMPLICATED Diagnosis 05/19/2021 07:01:00 PM EDT [facility] F11.20 Opioid dependence, uncomplicated OPIOID DEPENDEN CE, UNCOMPLICATED Diagnosis 05/19/2021 07:01:00 PM EDT [facility] F11.21 [id number] Opioid dependence in remission Problem 06/15/2021 12:00:00 AM EDT eC1 ([facility]) B19.20 [id number] Hepatitis C virus in fection without hepatic coma, unspecified chronicity Problem 06/15/2021 12:00:00 AM EDT eCW1 ([facility]) Surgeries/Procedures No Information Results ID Date Data Source [id number] 08/09/2021 03:00:00 PM [facility] Name Value Range Interpretation Code Description Data Kamila rce(s) Supporting Document(s) SARS-CoV-2 RNA Resp Ql JOANNA+probe NOT DETECTED [facility] This lab was ordered by AL[facility]ner and reported by [facility]. ID Date Data Source [id number] 05/24/2021 11:16:00 PM EDT [facility] Name Value Range Interpretation Code Description Data Kamila rce(s) Supporting Document(s) Cannabinoids Confirm,Ur result . Very abnor mal (applies to non-numeric units [facility] Carboxy THC GC/MS Conf 22 ng/mL Cutoff=10 01 Performed at: [facility] [address] [id number] Value Stream Manager: Yanira Cox MD, Phone: [phone] ID Date Data Source [id number] 05/19/2021 09:03:00 PM EDT [facility] Name Value Range Interpretation Code Description Data Kamila rce(s) Supporting Document(s) Opiate Screen,Urine Negative Normal (applies to non-nume candy results) [facility] Amphetamine Screen,Urine Negative Normal (applies to non -numeric results) [facility] Benzodiazepines Scrn,Ur result Negative N ormal (applies to non-numeric results) [facility] Cocaine Screen,Urine Negative Normal (applies to non-num lucas results) [facility] Methadone Screen,Urine Negative Normal (applies to non-n umeric results) [facility] Cannabinoid Screen, Ur Negative [place] [facility] Therapeutic Drug Ranges for Emergency an d Rehabilitation Threshold Levels (ng/mL) Cocaine 300 Opiates 300 Cannabinoids 50 Barbiturates 200 Benzodiazepine 200 Methadone 300 Amphetamines 1000 All positive find ings are presumptive and unconfirmed. Confirmation of positive results are performed only at request of provider. Unconfirmed results must not be used for non-medical purposes (i.e. pre-employment and legal purposes) ID Date Data Source [id number] 05/19/2021 08:48:00 PM EDT [facility] Name Value Range Interpretation Code Description Data Kamila rce(s) Supporting Document(s) Color,Urine Yellow Normal (applies to non-numeric resu lts) [facility] Clarity,Urine Clear Normal (applies to non-numeric re sults) [facility] Specific [place],Urine 1.001-1.030 Normal (applies to non- numeric results) [facility] PH,Urine 5.0-8.0 Normal (applies to non-numeric resul ts) [facility] Protein,Urine Negative Normal (applies to non-numeric re sults) [facility] Glucose,Urine (UA) Negative Normal (applies to non-numer ic results) [facility] Ketones,Urine Negative Normal (applies to non-numeric re sults) [facility] Blood,Urine Negative Normal (applies to non-numeric resu lts) [facility] Bilirubin,Urine Negative Normal (applies to non-numeric results) [facility] Urobilinogen,Urine Norm 0.2-1 Normal (applies to non-numer ic results) [facility] Leukocyte Esterase,Urine Negative Normal (applies to non -numeric results) [facility] Nitrite,Urine Negative Normal (applies to non-numeric re sults) [facility] ID Date Data Source [id number] 05/19/2021 07:10:00 PM EDT [facility] Name Value Range Interpretation Code Description Data Kamila rce(s) Supporting Document(s) Respiratory specimen severe acute respir atory syndrome coronavirus 2 (SARS-CoV-2) RNA Negative (qualifier value) [facility] This lab was ordered by [facility] miah and reported by [facility]. ID Date Data Source [id number] 05/19/2021 07:55:00 PM EDT [facility] Negative results should be treated as [...] Certificate of Accreditation. Factsheets for healthcare providers: https://www.fda.gov/media/352752/download Factsheets for patients: https://www.fda.gov/media/230508/download The ID NOW Instrument is a rapid molecular in vitro diagnostic test utilizing an isothermal nucleic acid amplification technology intended for the qualitative detection of nucleic acid from the SARS-CoV-2 viral RNA. THIS IS A STATE REPORTABLE COMMUNICABLE DISEASE. Manual entry verified by Itzel Lowe 05/19/211953 Test Performed By: [facility] [address] [place] [address] Director: Colleen Rudolph MD Name Value Range Interpretation Code Description Data Kamila rce(s) Supporting Document(s) ID Date Data Source [id number] 04/10/2021 08:11:00 AM EDT [facility] Name Value Range Interpretation Code Description Data Kamila rce(s) Supporting Document(s) SARS-CoV-2 (COVID 19) NEGATIVE - SARS-CoV-2 (COVID19) [facility] This lab was ordered by [facility] a nd reported by [facility]. ID Date Data Source [id number] 01/30/2021 10:45:00 AM EST [facility] Name Value Range Interpretation Code Description Data Kamila rce(s) Supporting Document(s) SARS coronavirus 2 RNA Not Detected [facility] This lab was ordered by [facility] and reported by [facility]. ID Date Data Source [id number] 01/19/2021 12:24:00 PM EST [facility] Name Value Range Interpretation Code Description Data Kamila rce(s) Supporting Document(s) SARS-CoV-2 (COVID-19) RNA [Presence] in Respiratory specimen by JOANNA with probe detection Not Detected [facility] This lab was ordered by [facility] and reported by [employer] ID Date Data Source [id number] 11/24/2020 08:51:00 AM EST [facility] Name Value Range Interpretation Code Description Data Kamila rce(s) Supporting Document(s) SARS coronavirus 2 RNA [facility] This lab was ordered by [facility] and reported by [facility]. Procedure Social History Code Duration Value Status Description Data Source(s ) Smoking 06/15/2021 12:00:00 AM EDT Current Smoker completed Curre nt Smoker eCW1 ([facility]) Smoking 06/15/2021 12:00:00 AM EDT Current Smoker completed Curre nt Smoker eCW1 ([facility]) Vital Signs ID Date Data Source UNK Name Value Range Interpretation Code Description Data Source(s) Body weight 185 [lb_av] 185 [lb_av] eCW1 ([facility]) Body height 67 [in_i] 67 [in_i] eCW1 ([facility]) Body mass index (BMI) [Ratio] 28.97 kg/m2 28.97 kg/m2 eCW1 ([facility]) Heart rate 76 /min 76 /min eCW1 ([facility]) Respiratory rate 18 /min 18 /min eCW1 ([facility]) Body temperature 97.6 [degF] 97.6 [degF] eCW1 ( [facility]) Systolic blood pressure 144 mm[Hg] 144 mm[Hg] e CW1 ([facility]) Diastolic blood pressure 78 mm[Hg] 78 mm[Hg] eCW1 ([facility]) ID Date Data Source [id number] 06/15/2021 07:40:[address] [facility] Name Value Range Interpretation Code Description Data Source(s) Weight Measurement Method 7 7 [facility] Weight (Calculated Kilograms) 81.19 81.19 [facility] Weight 2864 2864 [facility] Temperature Source 7 7 [facility] Temperature 97.[address] [facility] Respiratory Effort 1 1 [facility] Respiratory Rate 16 16 [facility] Pulse Assessment Method 4 4 [facility] Pulse Rate 75 75 [facility] Height (Calculated Centimeters) 172.72 172. 72 [facility] Height 68 68 [facility] Blood Pressure 134/83 134/83 [facility] Body Mass Index (BMI) 27.2 27.2 [facility] Weight Measurement Method 7 7 [facility] Weight (Calculated Kilograms) 81.19 81.19 [facility] Weight 2864 2864 [facility] Temperature Source 7 7 [facility] Temperature [address] [facility] Respiratory Effort 1 1 [facility] Respiratory Rate 16 16 [facility] Pulse Assessment Method 4 4 [facility] Pulse Rate 75 75 [facility] Height (Calculated Centimeters) 172.72 172. 72 [facility] Height 68 68 [facility] Blood Pressure 134/83 134/83 [facility] Body Mass Index (BMI) 27.2 27.2 [facility] Weight (Calculated Kilograms) 88.45 88.45 [facility] Height (Calculated Centimeters) 175.26 175. 26 [facility] Body Mass Index (BMI) 28.8 28.8 [facility]
--- NOTE | 2021-09-30 09:26 | REP ---
INDICATION: trauma. COMPARISON: None. TECHNIQUE: Two views FINDINGS: Forearm shows numerous surgical clips and its anterior surface most consistent with vascular graft surgery. No other soft tissue findings in the forearm. Bony structures are unremarkable. The distal upper arm shows a portion of the subcutaneous air which appears intramuscular and is seen better on the humerus series. IMPRESSION: 1. Numerous vascular clips in the soft tissues of the forearm likely from vascular graft. No forearm soft tissue abnormalities an acute basis. Visualized bones intact. The upper arm lower half shows small portion of the intramuscular/subcutaneous air present on the humerus series and representing abscess in that location. <Electronically signed by Keanu Johnson > 09/30/21 [id number]
[2021-09-30 09:30] LABS: ERYTHROCYTE SEDIMENTATION RATE 29 mm/hr (0-20)
--- NOTE | 2021-09-30 09:32 | REP ---
INDICATION: ro dvt; assess for abscess. TECHNIQUE: Multiple ultrasonographic images of the deep venous structures of the upper extremity were obtained from the brachial vein to the interrogatable portions of the subclavian vein along with color flow doppler imaging and doppler interrogation. FINDINGS: There is no evidence of abnormal echogenic material seen in any of the visualized deep venous structures of the left upper extremity. Coaptation where obtainable was achievable throughout. The exam is quite limited as the patient has significant pain and limited range of motion and the basilic vein could not be visualized. The cephalic vein of the superficial system showed flow and was compressible. Scanning through the zone of swelling in the biceps region show no definite drainable abscess collection but echogenic foci representing air as seen on the radiographs present throughout this area. There is edema within the soft tissues throughout this area. IMPRESSION: No ultrasonographic evidence of deep venous thrombosis involving the imageable portions of the deep venous structures of the left upper extremity. Exam limited by pain, limited range of motion and significant swelling. Echogenic air in the zone of swelling corresponding to the air seen on radiograph in the biceps. There is subcutaneous edema in the biceps in the same region and although no drainable abscess is present, findings suggest a phlegmon or developing infection in this region. Accredited by the [employer] in Vascular Peripheral Ultrasound. <Electronically signed by Keanu Johnson > 09/30/21 0909
[2021-09-30 09:36] LABS: RSV AMPLIFICATION NEGATIVE (NEGATIVE)
[2021-09-30] MEDS ORDERED: MORPHINE 2 MG/ML 1ML VIAL (J2270) IV ONE (09:40)
[2021-09-30 09:46] LABS: INR 1.05; PROTHROMBIN TIME 14.1 SECONDS (12.7-14.5)
[2021-09-30 09:47] LABS: PARTIAL THROMBOPLASTIN TIME 31.4 SECONDS (25.9-37.0)
--- NOTE | 2021-09-30 10:14 | REP ---
INDICATION: ro gas gangrene. COMPARISON: Soft tissue ultrasound left upper arm, left humerus and forearm series 09/30/2021. TECHNIQUE: Bolus 100 mL Isovue 370 scanning through the upper arm without arm raised over the head and including to the shoulder and upper chest. Coronal and sagittal MIP reformats with standard axial and sagittal reconstructions provided. FINDINGS: There is subcutaneous emphysema within the intramuscular biceps and into the subcutaneous soft tissues superficially centered over the junction of the mid to distal 3rd of the humerus. The area of intramuscular fizzy in measures 8.7 x 4.9 x 4.8 cm with small amounts into the subcutaneous tissues distally. Vascular flow seen in the muscle. I do not see definite air-fluid levels. Subcutaneous edema is noted around the upper arm and forearm. The left subclavian, axillary, brachial arteries in the upper arm and forearm vessels are intact. No stenosis or aneurysm defined. I do not see other areas of intramuscular subcutaneous emphysema. Bony forearm, upper arm, shoulder portions of the upper chest are intact cervical spine shows diffuse degenerative disc change. Calvarium unremarkable. No gross intracranial abnormality on this contrast enhanced study. The upper lung leal were clear. The aortic arch and great vessels off the arch are unremarkable. IMPRESSION: 1. Intramuscular air and some subcutaneous air adjacent in the left biceps without air-fluid levels. This air does not extend to the proximal upper arm or into the elbow/forearm. This represents an acute inflammatory process/infection. There is diffuse subcutaneous edema of the upper arm and forearm. Arterial vasculature is normal. Small vessels are seen extending into the biceps. 2. No other significant finding. <Electronically signed by Keanu Johnson > 09/30/21 1010
[2021-09-30] MEDS ORDERED: KETOROLAC 30 MG/ML 1ML VIAL IV ONE (10:20)
[2021-09-30] MEDS ORDERED: DEXTROSE 50% 50 ML SYRINGE IV PRN (10:20)
[2021-09-30] MEDS ORDERED: D5W/0.45% SODIUM CHLORIDE 1,000 ML IV SCH (10:20)
[2021-09-30] MEDS ORDERED: GLUCAGON INJ 1MG VIAL SC PRN (10:20)
[2021-09-30] MEDS ORDERED: GLUCOSE 4GM CHEW TABLET PO PRN (10:20)
[2021-09-30] MEDS ORDERED: HYDROMORPHONE HCL 0.5 MG/ 0.5 ML SYRINGE (J1170 PER 1) IV PRN (10:20)
--- OUTSIDE RECORDS SUMMARY | 2021-09-30 10:27 | CCD ---
Author Author [facility] Organization [facility] Address Unknown Phone Unavailable Care Team Providers Care Store Gift Wrap Associate Name Role Phone PAULA MARTIN MD Unavailable [...] is protected by Article 27-F of the [facility] Public Health law. If you continue you may have access to information: Regarding HIV / AIDS; Provided by facilities licensed or operated by the [facility] Office of Mental Health; or Provided by the [facility] Office for People With Developmental Disabilities. If such information is present, then the following [facility] mandated warning applies: This information has [...] allergy Drug allergy No Known Allergies [facility] Family History Family Member Name Family Member Gender Family Member Status Date o f Status Description Data Source(s) Unknown Unknown Encounters Encounter Providers Location Date Indications Data Source(s ) Outpatient 08/09/2021 02:40:19 PM EDT [facility] ([facility]) Outpatient Attender: Yefri Pabon PA-C 08/09/2021 02:39:46 PM EDT - 08/09/2021 04:26:50 PM EDT [facility] ([facility]) Outpatient 08/09/2021 01:56:10 PM EDT [facility] ([facility]) Outpatient [address] [facility] [address] 06/15/2021 12:00:00 AM EDT eCW1 ([facility]) Unknown [address] [facility] [facility] [address] 06/15/2021 12:00:00 AM EDT eCW1 ([facility]) Inpatient Attender: Paula Murillo nder: PAULA MARTIN MDAdmitter: PAULA MARTIN MD CPSCAORT-CHEPPDREH 05/19/2021 07:01:00 PM EDT - 05/20/2021 11:05:00 AM EDT PSYCHOACTIVE SUBSTANCE DEPENDENCE [facility] PSYCHOACTIVE SUBSTANCE DEPENDENCE Patient discharged. Immunizations Vaccine Date Status Description Data Source(s) Moderna #2 dose COVID-19(given elsewhere) SARSCOV2 VAC 100MCG/0.5ML IM 03/13/2021 03:12:00 PM EDT completed eCW1 ([facility]) Moderna #2 dose COVID-19(given elsewhere) SARSCOV2 VAC 100MCG/0.5ML IM 03/13/2021 03:12:00 PM EDT completed eCW1 ([facility]) COVID-19 VACCINE Moderna 03/13/2021 12:00:00 AM EDT completed [facility] Vaccine Series Complete: YESThis Data wa s Submitted to [facility] Via [facility]. Moderna #1 dose COVID-19(given elsewhere) SARSCOV2 VAC 100MCG/0.5ML IM 02/10/2021 03:11:00 PM EDT completed eCW1 ([facility]) Moderna #1 dose COVID-19(given elsewhere) SARSCOV2 VAC 100MCG/0.5ML IM 02/10/2021 03:11:00 PM EDT completed eCW1 ([facility]) COVID-19 VACCINE Moderna 02/10/2021 12:00:00 AM EDT completed [facility] Vaccine Series Complete: NOThis Data was Submitted to [facility] Via [employer]. Medications No Information Insurance Providers Payer name Policy type / Coverage type Policy ID Covered green party ID Covered green party's relationship to carlos Policy Carlos Plan Information MEDICAID M [id number] Self [id number] MEDICARE [id number] SP [id number] A MEDICARE [id number] SP [id number] A MEDICAID [id number] SP [id number] [facility] Medicare Medicare Part B [id number] Self [id number] Medicaid Medicaid [id number] Self [id number] MEDICARE [id number] SP [id number] [place] [id number] SP [id number] MEDICARE C [id number] S [id number] MEDICAID M [id number] S [id number] MEDICAID [id number] SP [id number] MEDICARE [id number] SP [id number] MEDICARE [id number] SP [id number] A Medicare Natl Gov't Servi Medicare Primary [id number] Self MEDICAID - O/P EMERGENCY ROOM [id number] 18 [id number] MEDICARE PART A -O/P [id number] 18 [id number] SELF PAY UNAVAILABLE SP UNAVAILA BLE OTHER WORKERS COMPENSATION [id number] SP [id number] MEDICAID - CLINIC [id number] MEDICAID-PHYSICIAN [id number] MEDICAID-O/P RAD ONLY [id number] MEDICAID-O/P [id number] 18 [id number] [id number] SP [id number] T [id number] MEDICARE [id number] A [facility] [id number] MEDICAID [id number] Unemployed [id number] MEDICARE [id number] Unemployed [id number] SELF PAY ONLY [id number] Problems, Conditions, and Diagnoses Code Display Name Description Problem Type Effective Dates Data Source(s) J44.9 Chronic obstructive pulmonary disease, u nspecified CHRONIC OBSTRUCTIVE PULMONARY DISEASE, UNSPECIFIED Diagnosis 05/19/2021 07:01:00 PM EDT [facility] Z53.29 Procedure and treatment not carried out because of patient's decision for other reasons PROC/TRTMT NOT CRD OUT BEC PT DECISION FOR OTH REASONS Diagn osis 05/19/2021 07:01:00 PM EDT [facility] F17.210 Nicotine dependence, cigarettes, uncompl icated NICOTINE DEPENDENCE, CIGARETTES, UNCOMPLICATED Diagnosis 05/19/2021 07:01:00 PM EDT [facility] F12.20 Cannabis dependence, uncomplicated CANNABIS DEPE NDENCE, UNCOMPLICATED Diagnosis 05/19/2021 07:01:00 PM EDT [facility] F11.20 Opioid dependence, uncomplicated OPIOID DEPENDEN CE, UNCOMPLICATED Diagnosis 05/19/2021 07:01:00 PM EDT [facility] F11.21 [id number] Opioid dependence in remission Problem 06/15/2021 12:00:00 AM EDT eC1 ([facility]) B19.20 [id number] Hepatitis C virus in fection without hepatic coma, unspecified chronicity Problem 06/15/2021 12:00:00 AM EDT eCW1 ([facility]) Surgeries/Procedures No Information Results ID Date Data Source [id number] 08/09/2021 03:00:00 PM [facility]T [facility] Name Value Range Interpretation Code Description Data Kamila rce(s) Supporting Document(s) SARS-CoV-2 RNA Resp Ql JOANNA+probe NOT DETECTED [facility] This lab was ordered by ALYCE werner and reported by [facility]. ID Date Data Source [id number] 05/24/2021 11:16:00 PM EDT [facility] Name Value Range Interpretation Code Description Data Kamila rce(s) Supporting Document(s) Cannabinoids Confirm,Ur result . Very abnor mal (applies to non-numeric units [facility] Carboxy THC GC/MS Conf 22 ng/mL Cutoff=10 01 Performed at: [facility] Lab[address] [id number] Engineering Clerk: Yanira Cox MD, Phone: [phone] ID Date Data Source [id number] 05/19/2021 09:03:00 PM EDT [facility] Name Value Range Interpretation Code Description Data Kamila rce(s) Supporting Document(s) Opiate Screen,Urine Negative Normal (applies to non-nume candy results) [facility] Amphetamine Screen,Urine Negative Normal (applies to non -numeric results) [facility] Benzodiazepines Scrn,Ur result Negative N ormal (applies to non-numeric results) [facility] Cocaine Screen,Urine Negative Normal (applies to non-num lucas results) [facility] Methadone Screen,Urine Negative Normal (applies to non-n umeric results) [facility] Cannabinoid Screen, Ur Negative [place]o [facility] Therapeutic Drug Ranges for Emergency an d Rehabilitation Threshold Levels (ng/mL) Cocaine 300 Opiates 300 Cannabinoids 50 Barbiturates 200 Benzodiazepine 200 Methadone 300 Amphetamines 1000 All positive find ings are presumptive and unconfirmed. Confirmation of positive results are performed only at request of provider. Unconfirmed results must not be used for non-medical purposes (i.e. pre-employment and legal purposes) ID Date Data Source [id number] 05/19/2021 08:48:00 PM EDT [facility] Name Value Range Interpretation Code Description Data Kamila rce(s) Supporting Document(s) Color,Urine Yellow Normal (applies to non-numeric resu lts) [facility] Clarity,Urine Clear Normal (applies to non-numeric re sults) [facility] Specific Severance,Urine 1.001-1.030 Normal (applies to non- numeric results) [facility] PH,Urine 5.0-8.0 Normal (applies to non-numeric resul ts) [facility] Protein,Urine Negative Normal (applies to non-numeric re sults) [facility] Glucose,Urine (UA) Negative Normal (applies to non-numer ic results) [facility] Ketones,Urine Negative Normal (applies to non-numeric re sults) [facility] Blood,Urine Negative Normal (applies to non-numeric resu lts) [facility] Bilirubin,Urine Negative Normal (applies to non-numeric results) [facility] Urobilinogen,Urine Norm 0.2-1 Normal (applies to non-numer ic results) [facility] Leukocyte Esterase,Urine Negative Normal (applies to non -numeric results) [facility] Nitrite,Urine Negative Normal (applies to non-numeric re sults) [facility] ID Date Data Source [id number] 05/19/2021 07:10:00 PM EDT [facility] Name Value Range Interpretation Code Description Data Kamila rce(s) Supporting Document(s) Respiratory specimen severe acute respir atory syndrome coronavirus 2 (SARS-CoV-2) RNA Negative (qualifier value) [facility] This lab was ordered by [facility] miah and reported by [facility]. ID Date Data Source [id number] 05/19/2021 07:55:00 PM EDT [facility] Negative results should be treated as [...] Certificate of Accreditation. Factsheets for healthcare providers: https://www.fda.gov/media/261435/download Factsheets for patients: https://www.fda.gov/media/197342/download The ID NOW Instrument is a rapid molecular in vitro diagnostic test utilizing an isothermal nucleic acid amplification technology intended for the qualitative detection of nucleic acid from the SARS-CoV-2 viral RNA. THIS IS A STATE REPORTABLE COMMUNICABLE DISEASE. Manual entry verified by Itzel Lowe 05/19/211953 Test Performed By: [facility] [address] [place] [address] Director: Colleen Rudolph MD Name Value Range Interpretation Code Description Data Kamila rce(s) Supporting Document(s) ID Date Data Source [id number] 04/10/2021 08:11:00 AM EDT [facility] Name Value Range Interpretation Code Description Data Kamila rce(s) Supporting Document(s) SARS-CoV-2 (COVID 19) NEGATIVE - SARS-CoV-2 (COVID19) [facility] This lab was ordered by [facility] a nd reported by [facility]. ID Date Data Source [id number] 01/30/2021 10:45:00 AM EST [facility] Name Value Range Interpretation Code Description Data Kamila rce(s) Supporting Document(s) SARS coronavirus 2 RNA Not Detected [facility] This lab was ordered by [facility] and reported by [facility]. ID Date Data Source [id number] 01/19/2021 12:24:00 PM EST [facility] Name Value Range Interpretation Code Description Data Kamila rce(s) Supporting Document(s) SARS-CoV-2 (COVID-19) RNA [Presence] in Respiratory specimen by JOANNA with probe detection Not Detected [facility] This lab was ordered by [facility] and reported by [employer] ID Date Data Source [id number] 11/24/2020 08:51:00 AM EST [facility] Name Value Range Interpretation Code Description Data Kamila rce(s) Supporting Document(s) SARS coronavirus 2 RNA [facility] This lab was ordered by [facility] and reported by [facility]. Procedure Social History Code Duration Value Status Description Data Source(s ) Smoking 06/15/2021 12:00:00 AM EDT Current Smoker completed Curre nt Smoker eCW1 ([facility]) Smoking 06/15/2021 12:00:00 AM EDT Current Smoker completed Curre nt Smoker eCW1 ([facility]) Vital Signs ID Date Data Source UNK Name Value Range Interpretation Code Description Data Source(s) Body height 67 [in_i] 67 [in_i] eCW1 ([facility]) Body weight 185 [lb_av] 185 [lb_av] eCW1 ([facility]) Body mass index (BMI) [Ratio] 28.97 kg/m2 28.97 kg/m2 eCW1 ([facility]) Heart rate 76 /min 76 /min eCW1 ([facility]) Respiratory rate 18 /min 18 /min eCW1 ([facility]) Body temperature 97.6 [degF] 97.6 [degF] eCW1 ( [facility]) Systolic blood pressure 144 mm[Hg] 144 mm[Hg] e CW1 ([facility]) Diastolic blood pressure 78 mm[Hg] 78 mm[Hg] eCW1 ([facility]) ID Date Data Source [id number] 06/15/2021 07:40:00 AM EDT [facility] Name Value Range Interpretation Code Description Data Source(s) Weight Measurement Method 7 7 [facility] Weight (Calculated Kilograms) 81.19 81.19 [facility] Weight 2864 2864 [facility] Temperature Source 7 7 [facility] Temperature 97.2 97.2 [facility] Respiratory Effort 1 1 [facility] Respiratory Rate 16 16 [facility] Pulse Assessment Method 4 4 [facility] Pulse Rate 75 75 [facility] Height (Calculated Centimeters) 172.72 172. 72 [facility] Height 68 68 [facility] Blood Pressure 134/83 134/83 [facility] Body Mass Index (BMI) 27.2 27.2 [facility] Weight Measurement Method 7 7 [facility] Weight (Calculated Kilograms) 81.19 81.19 [facility] Weight 2864 2864 [facility] Temperature Source 7 7 [facility] Temperature 97.2 97.2 [facility] Respiratory Effort 1 1 [facility] Respiratory Rate 16 16 [facility] Pulse Assessment Method 4 4 [facility] Pulse Rate 75 75 [facility] Height (Calculated Centimeters) 172.72 172. 72 [facility] Height 68 68 [facility] Blood Pressure 134/83 134/83 [facility] Body Mass Index (BMI) 27.2 27.2 [facility] Weight (Calculated Kilograms) 88.45 88.45 [facility] Height (Calculated Centimeters) 175.26 175. 26 [facility] Body Mass Index (BMI) 28.8 28.8 [facility]
[2021-09-30] MEDS ORDERED: HOME MED LIST COMPLETE! XX SCH (10:35)
--- NOTE | 2021-09-30 10:49 | REP ---
INDICATION: PREOP ARM PAIN. COMPARISON: CXR and CTA chest 04/10/2021 TECHNIQUE: AP seated lordotic chest FINDINGS: Lungs are adequately inflated. No visible effusion, infiltrate, atelectasis or mass. The heart, mediastinal and hilar contours are normal. The aorta and airway grossly intact. Bones show some degenerative changes in the spine and shoulders. IMPRESSION: 1. No acute cardiopulmonary change. Stable from 04/10/2021. <Electronically signed by Keanu Johnson > 09/30/21 1044
--- NOTE | 2021-09-30 11:05 | HPEPDOC ---
[facility] Medical History & Physical Date of Admission Sep 30, 2021 Date of Service: Sep 30, 2021 History and Physical CHIEF COMPLAINT: Left arm pain, swelling HISTORY OF PRESENT ILLNESS: 55-year-old male passed out at a libertarian on Saturday, woke up on Saturday with a knot in his left upper arm. When he went to work on Saturday, he was struck in the left upper arm with a 2 x 6 which fell from overhead. Since then, left upper arm, including the elbow. Has developed increased swelling, warmth, redness, limited range of motion, pain described as sharp, throbbing 10/10 pain, making him cry In the ER he was afebrile with temperature of 97.9, PAST MEDICAL HISTORY: Hepatitis C treated by Dr. 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 Denies recreational drug use. In case of emergency, please call Adria Melendez [phone] FAMILY HISTORY: Father: Unknown Mother: age 72 renal failure hypertension coronary artery disease ALLERGIES: Please see below. REVIEW OF SYSTEMS: 10 point review of systems negative aside from positive findings in HPI HOME MEDICATIONS: Please see below. PHYSICAL EXAMINATION: VITAL SIGNS: See below GENERAL APPEARANCE: No respiratory distress cyanosis icterus. Moaning due to pain HEENT: No JVD thyromegaly cervical lymphadenopathy CARDIOVASCULAR: S1-S2 regular rate rhythm no S3 or carotid bruits LUNGS: Air entry is equal bilaterally clear to auscultation without wheezing rales or rhonchi bilaterally ABDOMEN: Positive bowel sounds soft nontender nondistended no hepatosplenomegaly no rebound or guarding EXTREMITIES: Left forearm to the elbow significant erythema, tenderness, limited range of motion with flexion extension due to severe pain and edema of the left elbow. Crepitus LABORATORY DATA: See below. IMAGING: See below CT LEFT UE: There is subcutaneous emphysema within the intramuscular biceps and into the subcutaneous soft tissues superficially centered over the junction of the mid to distal 3rd of the humerus. The area of intramuscular fizzy in measures 8.7 x 4.9 x 4.8 cm with small amounts into the subcutaneous tissues distally. Vascular flow seen in the muscle. I do not see definite air-fluid levels. Subcutaneous edema is noted around the upper arm and forearm. The left subclavian, axillary, brachial arteries in the upper arm and forearm vessels are intact. No stenosis or aneurysm defined. I do not see other areas of intramuscular subcutaneous emphysema. Bony forearm, upper arm, shoulder portions of the upper chest are intact cervical spine shows diffuse degenerative disc change. Calvarium unremarkable. No gross intracranial abnormality on this contrast enhanced study. The upper lung leal were clear. The aortic arch and great vessels off the arch are unremarkable. IMPRESSION: 1. Intramuscular air and some subcutaneous air adjacent in the left biceps without air-fluid levels. This air does not extend to the proximal upper arm or into the elbow/forearm. This represents an acute inflammatory process/infection. There is diffuse subcutaneous edema of the upper arm and forearm. Arterial vasculature is normal. Small vessels are seen extending into the biceps. 2. No other significant finding. <Electronically signed by Keanu Johnson > 09/30/21 1010 MICROBIOLOGY: Please see below. ASSESSMENT: 55-year-old male with history of hepatitis C multiple lower extremity surgeries was in his usual state of health until Saturday when he pas sed out and woke up with a left forearm pain and swelling worsened on Saturday when a traumatic injury when a 2 x 6 fell on him from overhead now with left upper extremity necrotizing fasciitis. Medical optimization -Patient is medically optimized to proceed to the operating room. EKG chest x- ray unremarkable. No acute cardiac ischemic symptoms. N.p.o. IV fluids. Hypoglycemic protocol Left upper extremity necrotizing fasciitis -Medically optimized to proceed to surgery for debridement. Orthopedic surgeon Dr. Cárdenas consulted -IV meropenem and vancomycin empirically. NPO. IV fluids. Hypoglycemic protocol. As needed Dilaudid intravenously for pain control. Hepatitis C -Outpatient follow-up with infectious disease. Vital Signs Vital Signs Date Time Temp Pulse Resp B/P (MAP) Pulse Ox O2 Delivery O2 Flow Rate FiO2 09/30/21 09:44 20 09/30/21 08:58 Room Air 09/30/21 08:16 97.9 162/74 (103) 98 Laboratory Data Labs 24H Laboratory Tests 2 09/30/21 08:37: POC Glucose (Misc Panel) 143H, POC Sodium (Misc Panel) 136, POC Potassium (Misc Panel) 3.9, POC Chloride (Misc Panel) 96L, POC Total CO2 (Misc Panel) 27.0, POC Blood Urea Nitrogen (Misc Panel 12, POC Ionized Calcium (Misc Panel) 4.8, POC Creatinine (Misc Panel) 0.7, POC Hematocrit (Misc Panel) 46.0 09/30/21 08:38: C-Reactive Protein, Quantitative 25.90H 09/30/21 08:39: Immature Granulocyte % (Auto) 1.8, Neutrophils (%) (Auto) 86.0H, Lymphocytes (%) (Auto) 4.2L, Monocytes (%) (Auto) 7.6, Eosinophils (%) (Auto) 0.0, Basophils (%) (Auto) 0.4, Neutrophils # (Auto) 19.3H, Lymphocytes # (Auto) 0.9L, Monocytes # (Auto) 1.7H, Eosinophils # (Auto) 0.0, Basophils # (Auto) 0.1, Nucleated Red Blood Cells % (auto) 0.0, Erythrocyte Sedimentation Rate 29H, Prothrombin Time 14.1H, Prothromb Time International Ratio 1.05, Activated Partial Thromboplast Time 31.4, Lactic Acid Level 1.5, Coronavirus (COVID-19)(PCR) NEGATIVE, Influenza Type A (RT-PCR) NEGATIVE, Influenza Type B (RT-PCR) NEGATIVE, Respiratory Syncytial Virus (PCR) NEGATIVE 09/30/21 09:04: CBC/BMP Laboratory Tests 09/30/21 08:39 Microbiology Microbiology 09/30/21 Blood Culture, Received Pending 09/30/21 Blood Culture, Received Pending Home Medications No Active Prescriptions or Reported Meds Allergies Coded Allergies: No Known Allergies (Unverified , 03/02/19) A-FIB/CHADSVASC A-FIB History Current/History of A-Fib/PAF?: No Current PO Anticoag Therapy: No Age/Risk Factor Scoring CHADSVASC: CHADSVASC Response (Comments) Value Age Risk Factor Age < 65 years old 0 Gender Risk Factor Male 0 Hx of CHF No 0 Hx of HTN No 0 Hx of Stroke/TIA/or VTE No 0 Hx of Diabetes No 0 Hx of Vascular Disease No 0 Total 0 Treatment Treatment ordered: NONE GREGORY LEE MD Sep 30, 2021 10:39
[2021-09-30] MEDS: MEROPENEM INJ 1 GM in IV 1 EA IV SCH ×2 (11:08→19:37)
[2021-09-30] MEDS: HYDROMORPHONE HCL 0.5 MG/ 0.5 ML SYRINGE (J1170 PER 1) IV PRN ×3 (11:09→21:38)
[2021-09-30] MEDS ORDERED: ROCURONIUM BROMIDE 50 MG/5 ML VIAL As Ordered ONE (11:37)
[2021-09-30] MEDS ORDERED: fentaNYL 250 MCG/5 ML INJECTION (J3010) As Ordered ONE (11:37)
[2021-09-30] MEDS ORDERED: LIDOCAINE 2% 100MG/5ML SDV (FOR ANES.) As Ordered ONE (11:37)
[2021-09-30] MEDS ORDERED: propofoL 200 MG/20 ML VIAL As Ordered ONE (11:37)
[2021-09-30] MEDS ORDERED: MIDAZOLAM INJ 2MG/2ML VIAL (J2250 PER 1MG) As Ordered ONE (11:38)
[2021-09-30] MEDS ORDERED: NICOTINE 7 MG/24 HR TRANSDERMAL TD ONE (12:00)
[2021-09-30] MEDS ORDERED: TRANEXAMIC ACID 100 MG/ML 10ML VIAL As Ordered ONE ×2 (12:18→12:35)
[2021-09-30] MEDS ORDERED: PHENYLephrine 500MCG 5ML (100MCG/ML) SYRINGE As Ordered ONE (12:22)
[2021-09-30] MEDS ORDERED: SUGAMMADEX SODIUM 500 MG/5 ML VIAL (BRIDION) As Ordered ONE (12:34)
[2021-09-30] MEDS ORDERED: METOCLOPRAMIDE INJ 10MG/2ML VIAL (J2765 PER 1) As Ordered ONE (12:34)
[2021-09-30] MEDS ORDERED: ONDANSETRON 4MG/2ML VIAL As Ordered ONE (12:34)
--- NOTE | 2021-09-30 13:27 | ER ---
ER CONSULTATION DATE: 09/30/2021 TIME: 11 a.m. CONSULTING SERVICE: Orthopedic surgery. CONSULTING PHYSICIAN: Arron Cárdenas MD HPI: This is a 55-year-old male with what appears to be necrotizing fasciitis of the left arm, anterolateral aspect. The patient sustained a significant bruising and hematoma development approximately one week prior at a construction site when 2 x 8 wood beam fell onto his left arm. Since that time the patient was recovering. However, over the last four days he has noticed what appears to be significant cellulitis and mass effect underneath the skin of his anterolateral aspect of his left arm. The ER provider got a radiograph and CT scan which clearly showed air concerning for necrotizing fasciitis, likely from secondary hematogenous spreading. Orthopedic surgery was consulted for further evaluation and treatment and operative planning. MEDICAL HISTORY: Includes hepatitis C, dermatitis, acute bronchitis, smoking history, reactive airway disease, bronchospasm, pneumonia, back pain. SURGICAL HISTORY: The patient had a left transmetatarsal amputation secondary to traumatic event, he had a devascularizing injury and required surgery and autograft transfer of a forearm flap, right total knee arthroplasty and right femoral intramedullary nail. SOCIAL HISTORY: He is a half pack smoker per day. He is a social drinker. The patient denies IV drug use currently. ALLERGIES TO MEDICATIONS: The patient denies. CURRENT MEDICATIONS: Patient denies. REVIEW OF SYSTEMS: 14 point review of systems is negative unless otherwise described in HPI above. PHYSICAL EXAMINATION: GENERAL: Alert and oriented to person, time and place. EXTREMITIES: Left upper extremity had a significant erythema about the anterolateral aspect of his left arm with a firm arm likely secondary to gas and mass effect. His left upper extremity is otherwise neurovascularly intact. He has 5/5 motor strength to the musculocutaneous, axillary, radial, median and ulnar nerve distributions. Sensation intact to light touch to the musculotendinous, axillary, radial, median and ulnar nerve distributions. Brisk cap refill to the digits. IMAGING DATA: Radiographs demonstrate significant air of the anterolateral aspect of the patient's arm. He had CT scan which confirmed this consistent with gas gangrene. LABS: The patient had a LRINEC score of 5. His C-reactive protein over 15 mg per dL. White blood cell count between 15 and 25. Hemoglobin over 13.5. Sodium over 135. Creatinine under 1.6 mg per dL and glucose was under 180 mg per dL which is LRINEC score of 5 low risk but obviously requires clinical correlation. IMPRESSION: 55-year-old male with left arm necrotizing fasciitis. The patient is clearly indicated for irrigation and debridement. He has significant air within the left arm. PLAN: The patient was started on broad spectrum antibiotics by the internal medicine team. COVID test is pending. He will be admitted for irrigation, debridement of his left upper extremity as well as intraoperative biopsy and culture. He will likely require a second irrigation and debridement of the left arm.
[2021-09-30] MEDS ORDERED: fentaNYL 100 MCG/2 ML INJECTION (J3010) As Ordered ONE ×2 (13:59→14:26)
[2021-09-30] MEDS: fentaNYL 100 MCG/2 ML INJECTION (J3010) IV PRN ×4 (14:27→14:48)
[2021-09-30] MEDS: oxyCODONE 5MG TAB PO PRN ×2 (14:39→15:05)
[2021-09-30] MEDS ORDERED: ONDANSETRON 4MG/2ML VIAL IV PRN (14:40)
[2021-09-30] MEDS ORDERED: LR 1,000 ML IV SCH (14:40)
--- NOTE | 2021-09-30 15:46 | ECGEPIP ---
[facility] Test Date: 2021-09-30 Pat Name: SHANNON CHRISTENSEN Department: Room: 0102 Gender: Male Script Coordinator: ZUNILDA : 1965 Requested By: GREGORY Johnson Order Number: [id number] Reading MD: James Jaime Measurements Intervals [place] Rate: 92 P: 45 CA: 124 QRS: 42 QRSD: 82 T: 2 QT: 378 QTc: 467 Interpretive Statements Normal sinus rhythm Nonspecific T wave abnormality New T wave abnormalities (low amplitude) compared with . Electronically Signed on 09-30-2021 15:45:58 EDT by James Jaime
--- NOTE | 2021-09-30 15:53 | RO ---
OPERATIVE NOTE DATE OF OPERATION: 09/30/2021 TIME: 12:30 p.m. PREOPERATIVE DIAGNOSIS: Left arm necrotizing fasciitis. POSTOPERATIVE DIAGNOSIS: Left arm necrotizing fasciitis. NAME OF OPERATION: Left arm irrigation and debridement. SURGEON: Arron Cárdenas MD ELEVATOR DISPATCHER: None. SUPERVISING ATTENDING: Arron Cárdenas MD FINDINGS: The patient had necrotizing fasciitis of the left arm. He had an adjacent abscess of approximately 100 mL of purulent fluid as well as approximately 1/3 necrosis of his biceps musculature. INDICATIONS: This is a 55-year-old male with a left arm necrotizing fascitis which had been developing for approximately four days. The patient finally presented to the [facility] emergency department for further evaluation and treatment for his left arm pain. Orthopedic surgery was consulted and indicated for surgery. ANESTHESIA: GETA. TOURNIQUET TIME: None used. ESTIMATED BLOOD LOSS: 100 mL. IV FLUIDS: Please see anesthesia report. IV ANTIBIOTICS: Please see anesthesia report. IMPLANTS: None. CULTURES: Aerobic, anaerobic. SPECIMENS: Musculature biopsy of the biceps musculature. DESCRIPTION OF PROCEDURE: The patient was met in the preoperative holding area where the patient's operative extremity was signed, the patient's consent was confirmed to be correct, and the patient's identity was confirmed to be correct. The patient was then transported to the operating theater where he was placed in supine position on a regular surgical flat-top bed. The hand board extension supported the patient's left upper extremity. A safety strap secured the patient to the bed. All bony prominences were well padded. The bilateral lower extremities had SCDs placed. A timeout was called which confirmed the correct patient, correct operative extremity and correct consent. All staff were in agreement. We began the procedure by marking out the skin incision overlying the abscess which was approximately an anterolateral approach of the patient's humeral shaft. I incised the skin sharply and used meticulous hemostasis to make my way to the abscess. After piercing the biceps fascia, there was an abscess that was encountered which I quickly drained under positive pressure which was approximately 100 mL in volume. After this, I extended the incision proximally and to do a deltopectoral approach. It was clear that santillan, soapy fluid was present in the fascial layers which probed with ease with blunt dissection. After exploring the extent of the infection in the easily fascia, I determined that I was able to get my finger to the level of the proximal arm. Multiple planes of fascia were bluntly opened. There was approximately 1/4 of his biceps tendon that was necrotic and a brown hue. This was test with electrocautery and had no reaction. This was debrided using a rongeur. After successful debridement of the musculature and any necrotic looking fascial tissue, we then copiously irrigated the patient's necrotizing fasciitis site with 9 liters of normal saline. After copious irrigation, I then placed a negative pressure wound therapy within the approximately 8 inch incision overlying the patient's anterolateral aspect of the left arm. I placed an Reuben bandage over the negative pressure wound therapy dressing which was set at 100 mmHg. The patient was then extubated without complication and transported to the postanesthesia care unit. The patient's care will be transferred to the hospitalist service. I recommend an infectious disease consult. We obtained fluid cultures including aerobic, anaerobic as well as a muscle culture as well as a muscle specimen to look for signs of necrotizing fascitis to include necrotic tissue. This was placed in a specimen cup with formaldehyde. After completing this, infectious should have more information for a treatment plan. The hospitalist service will manage the patient's comorbidities as well as the necrotizing fasciitis. The patient will likely require one or two additional irrigation and debridements prior to skin closure.
[2021-09-30 16:00] VITALS: BP 110/63
[2021-09-30] MEDS: VANCOMYCIN HCL 1,000 MG, VIAL MATE ADAPTER 1 EACH in NS 250 ML IV SCH (17:49)
[2021-09-30] MEDS: THIAMINE 100 MG TAB PO SCH ×2 (17:50→21:38)
[2021-09-30] MEDS: LORazepam 2 MG TAB PO PRN ×2 (17:50→22:24)
[2021-09-30] MEDS: MULTIVITAMINS/MINERALS THERAP 1 TAB PO SCH (17:50)
[2021-09-30] MEDS: FOLIC ACID 1 MG TAB PO SCH (17:50)
[2021-09-30] MEDS: NS 1,000 ML IV SCH (17:51)
[2021-09-30 20:00] VITALS: BP 114/57; O2SAT 94
[2021-09-30 21:00] VITALS: O2SAT 95
[2021-09-30 22:00] VITALS: BP 108/68; O2SAT 93
[2021-09-30 23:00] VITALS: O2SAT 97
[2021-10-01] VITALS (15 sets, daily range): BP systolic 104–121; BP diastolic 58–64; O2SAT 92–98
[2021-10-01] MEDS: VANCOMYCIN HCL 1,000 MG, VIAL MATE ADAPTER 1 EACH in NS 250 ML IV SCH (00:56)
[2021-10-01] MEDS: HYDROMORPHONE HCL 0.5 MG/ 0.5 ML SYRINGE (J1170 PER 1) IV PRN (02:59)
[2021-10-01] MEDS: MEROPENEM INJ 1 GM in IV 1 EA IV SCH ×3 (03:05→20:03)
[2021-10-01] MEDS: LORazepam 2 MG TAB PO PRN ×3 (04:17→22:03)
[2021-10-01] MEDS: NS 1,000 ML IV SCH (05:41)
[2021-10-01] MEDS ORDERED: KETOROLAC 30 MG/ML 1ML VIAL IV ONE (07:40)
[2021-10-01] MEDS ORDERED: HYDROMORPHONE HCL 0.5 MG/ 0.5 ML SYRINGE (J1170 PER 1) IV PRN (07:40)
[2021-10-01] MEDS ORDERED: NS 1,000 ML IV ONE (07:40)
[2021-10-01] MEDS ORDERED: HYDROMORPHONE HCL 0.5 MG/ 0.5 ML SYRINGE (J1170 PER 1) IV ONE (07:40)
[2021-10-01] MEDS ORDERED: D5W/0.45% SODIUM CHLORIDE 1,000 ML IV SCH (07:40)
--- NOTE | 2021-10-01 08:16 | IPN ---
PROGRESS NOTE DATE: 10/01/2021 SUBJECTIVE: The patient complains of 10/10 pain on the left arm, status post incision, drainage and debridement of necrotizing fasciitis. The patient has been afebrile, no complaints of shortness of breath despite IV fluids given this morning. The patient is able to move his fingers, no numbness, no tingling sensation. Skin color is pink, no cyanosis of his fingers and hand on the left. OBJECTIVE: Vitals: Temperature 98.2, pulse 103, sinus, respiratory rate 18, blood pressure 106/61, 96% on room air. General: The patient is awake, alert and oriented to person, place and time, no distress, no JVD, thyromegaly or cervical lymphadenopathy. Lungs: Clear to auscultation, no wheezing, rales or rhonchi. Heart: S1, S2, sinus rhythm. Abdomen: Soft, nontender, nondistended, positive bowel sounds. Extremities: No pitting edema, bilateral lower extremities. Left arm is bandaged. Radial and ulnar pulses are intact. The patient was able to move his fingers, no cyanosis. Laboratory data, imaging study, microbiology: Please see the chart. ASSESSMENT AND PLAN: This is a 55-year-old male with a history of hepatitis C, smoker, social alcohol use, denies recreational drug use, presented with left arm pain, swelling, noted to have necrotizing fasciitis with air on CT of the upper extremity, brought emergently to the operating room for incision, drainage and surgical debridement with 100 mL of purulence noted as well as 1/3 of the biceps muscle, noted to have significant necrosis on 09/30/2021, status post muscular biopsy of the biceps musculature with 1/4 of his biceps tendon with necrotic and brown hue debrided. IMPRESSION: 1. Necrotizing fasciitis of the left upper extremity, status post debridement, resection of tissue, 1/3 of the biceps muscle and 1/4 of the biceps tendon. The patient is currently on broad-spectrum antibiotics with vancomycin and meropenem, pain control with Dilaudid and Toradol. Infectious disease specialist will be consulted on 10/02/2021. The patient will be going for a washout today and has been kept NPO, IV fluids to prevent hypoglycemia and dehydration. 2. Tobacco abuse. Sufficient counseling has been provided, nicotine replacement therapy. 3. Social alcohol use, no signs of withdrawal. 4. History of hepatitis C with tattoos noted in left anterior chest and arm, followed as outpatient by Dr. Supa Ellison. 5. DVT prophylaxis. Compression stockings for now since the patient will be going to the OR for washout today.
[2021-10-01 08:26] LABS: BLOOD UREA NITROGEN 9 MG/DL (7-18); CALCIUM LEVEL 7.8 MG/DL (8.5-10.1); CARBON DIOXIDE LEVEL 29 MEQ/L (21-32); CHLORIDE LEVEL 105 MEQ/L (98-107); GLOMERULAR FILTRATION RATE > 60.0 (>56); GLUCOSE, FASTING 86 MG/DL (70-100); SODIUM LEVEL 139 MEQ/L (136-145)
[2021-10-01] MEDS: VANCOMYCIN HCL 750 MG, VIAL MATE ADAPTER 1 EACH in NS 250 ML IV SCH ×2 (08:27→15:52)
[2021-10-01] MEDS: VANCOMYCIN HCL 500 MG in D5W MINI-BAG PLUS 100 ML IV SCH ×2 (10:07→17:58)
--- NOTE | 2021-10-01 10:19 | IPNPDOC ---
Date Seen The patient was seen on 10/01/21. Progress Note washout on Saturday per ortho. plan: regular diet ID consult saturday increased dose of dilaudid VS, I&O, 24H, Fishbone Vital Signs/I&O Vital Signs Date Time Temp Pulse Resp B/P (MAP) Pulse Ox O2 Delivery O2 Flow Rate FiO2 10/01/21 08:26 18 10/01/21 08:00 98.7 104 104/59 (74) 95 Room Air 10/01/21 03:09 2.0 I&O- Last 24 Hours up to 6 AM 10/01/21 06:00 Intake Total 4905 ml Output Total 800 ml Balance 4105 ml Laboratory Data 24H LABS Laboratory Tests 2 10/01/21 06:23: Anion Gap 5L, Glomerular Filtration Rate > 60.0, Calcium Level 7.8L, Vancomycin Level Trough 8.0L CBC/BMP Laboratory Tests 10/01/21 06:23 Microbiology Microbiology 09/30/21 Anaerobic Culture, Received Pending 09/30/21 Gram Stain - Final, Resulted 09/30/21 Abscess Culture - Preliminary, Resulted Streptococcus Group C 09/30/21 Gram Stain - Final, Resulted 09/30/21 Surgical Biopsy Culture - Preliminary, Resulted Streptococcus Group C 09/30/21 Anaerobic Culture, Resulted Pending 09/30/21 Blood Culture - Preliminary, Resulted No growth after 24 hours . All specim... 09/30/21 Blood Culture - Preliminary, Resulted GREGORY LEE MD Oct 01, 2021 10:19
[2021-10-01] MEDS ORDERED: PERCOCET 5MG/325MG TAB PO ONE (10:20)
[2021-10-01] MEDS: THIAMINE 100 MG TAB PO SCH ×2 (11:10→20:02)
[2021-10-01] MEDS: MULTIVITAMINS/MINERALS THERAP 1 TAB PO SCH (11:10)
[2021-10-01] MEDS: FOLIC ACID 1 MG TAB PO SCH (11:10)
[2021-10-01] MEDS: HYDROmorphone HCL 2 MG/ML 1ML VIAL IV PRN ×3 (13:04→21:51)
[2021-10-01] MEDS: NICOTINE 7 MG/24 HR TRANSDERMAL TD SCH (15:53)
--- NOTE | 2021-10-01 23:46 | ER ---
ER CONSULTATION DATE: 10/01/2021 CONSULTING SERVICE: Orthopedic surgery CONSULTING PHYSICIAN: Arron Cárdenas M.D. SUBJECTIVE: This is a 55-year-old male, who had a left arm necrotizing fasciitis of which she is postop day #1 of a left arm irrigation and debridement of his necrotizing fasciitis. The patient had improved pain of his left upper extremity and his negative pressure wound therapy was in place. OBJECTIVE: Patient was resting comfortably in bed. His negative pressure wound therapy yielded approximately 150 cc of serosanguineous fluid since the surgery. He is otherwise neurovascularly intact in his left upper extremity. He has 5/5 motor strength to the musculocutaneous, axillary, radial, median and ulnar nerve distributions. Sensation is intact to light touch to the distributions of the musculocutaneous, axillary, radial, median and ulnar nerve distributions. She had brisk capillary refill to the digits and a palpable radial and ulnar pulse. IMPRESSION: A 55-year-old male with a left arm necrotizing fasciitis, which yielded Streptococcus Group C bacteria and cultures that were gram-positive cocci in chains, gram-positive rods and gram-negative rods. PLAN: At this point in time, I plan to take the patient back for a second irrigation and debridement of the left arm on the September in the afternoon. I recommend him being n.p.o. after breakfast that day, likely no later than 8:00 a.m. on the 03 of October. The patient had preceding left back pain overlying the scapula, this is slightly concerning for extension of his necrosing fasciitis of the left arm. The plan at this point is for a repeat CT scan of the left shoulder and arm on the morning on the September. This will allow me to better assess if there is any air tracking to the scapular region which would be indicative of expanding necrotizing fasciitis. If this is the case, I may do a slit test during the repeat washout of the left arm which would allow me to get my finger in and feel for the opening fascial plain which would be indicative of expanding necrotizing fasciitis and if his test is positive, he may require a second surgical incision along the posterior aspect of his left scapula using the Judet surgical approach. Will continue to closely monitor this patient for signs of expanding necrotizing fasciitis in the days to come and he will be treated empirically with antibiotics until infectious disease leaves their recommendations likely on the September with the completed culture analysis.
[2021-10-02] VITALS (7 sets, daily range): BP systolic 113–142; BP diastolic 58–72; O2SAT 95
[2021-10-02] MEDS: VANCOMYCIN HCL 750 MG, VIAL MATE ADAPTER 1 EACH in NS 250 ML IV SCH ×3 (00:36→15:32)
[2021-10-02] MEDS: HYDROmorphone HCL 2 MG/ML 1ML VIAL IV PRN ×2 (01:13→04:41)
[2021-10-02] MEDS: VANCOMYCIN HCL 500 MG in D5W MINI-BAG PLUS 100 ML IV SCH ×3 (02:08→16:49)
[2021-10-02] MEDS: MEROPENEM INJ 1 GM in IV 1 EA IV SCH ×3 (03:26→18:43)
[2021-10-02] MEDS: LORazepam 2 MG TAB PO PRN (05:47)
[2021-10-02] MEDS ORDERED: HYDROmorphone HCL 2 MG/ML 1ML VIAL IV ONE ×2 (07:30→16:15)
[2021-10-02] MEDS ORDERED: KETOROLAC 30 MG/ML 1ML VIAL IV ONE ×2 (07:30→16:00)
[2021-10-02] MEDS ORDERED: diphenhydrAMINE 50MG/ML VIAL (J1200) IV PRN (08:15)
[2021-10-02] MEDS ORDERED: MORPHINE 1MG/ML IN 0.9% NACL 100ML IV BAG IV PRN (08:15)
[2021-10-02] MEDS ORDERED: EPIDURAL/PCA KEYS XX PRN (08:15)
[2021-10-02] MEDS ORDERED: NS 1,000 ML IV SCH (08:15)
[2021-10-02] MEDS ORDERED: ONDANSETRON 4MG/2ML VIAL IV PRN (08:15)
[2021-10-02] MEDS ORDERED: NALOXONE INJ 0.4MG/1ML VIAL (J2310 PER 1MG) IV PRN (08:15)
[2021-10-02] MEDS: NICOTINE 7 MG/24 HR TRANSDERMAL TD SCH (08:32)
[2021-10-02] MEDS: MULTIVITAMINS/MINERALS THERAP 1 TAB PO SCH (08:32)
[2021-10-02] MEDS: THIAMINE 100 MG TAB PO SCH ×2 (08:34→20:12)
[2021-10-02] MEDS: FOLIC ACID 1 MG TAB PO SCH (08:34)
[2021-10-02] MEDS: NS 1,000 ML IV SCH (08:44)
[2021-10-02 08:48] LABS: BASO # 0.1 10^3/uL (0.0-0.2); BASO % 0.5 % (0.0-1.0); EOS # 0.2 10^3/uL (0.0-0.5); HEMATOCRIT 30.6 % (42.0-52.0); LYMPH # 1.2 10^3/uL (1.5-5.0); MEAN CORPUSCULAR HEMOGLOBIN 31.1 pg (27.0-33.0); MEAN CORPUSCULAR HGB CONC 33.3 g/dl (32.0-36.5); MEAN CORPUSCULAR VOLUME 93.3 fl (80.0-96.0); MONO # 0.7 10^3/uL (0.0-0.8); MONO % 6.9 % (2.0-8.0); NEUTROPHILS # 7.2 10^3/uL (1.5-8.5); NEUTROPHILS % 77.1 % (36.0-66.0); PLATELET COUNT, AUTOMATED 255 10^3/uL (150-450); RED BLOOD COUNT 3.28 10^6/uL (4.30-6.10); WHITE BLOOD COUNT 9.4 10^3/uL (4.0-10.0)
[2021-10-02 08:50] LABS: HEMOGLOBIN 10.2 g/dl (13.5-17.5)
[2021-10-02 09:07] LABS: ALBUMIN 2.5 GM/DL (3.2-5.2); ALT/SGPT 36 U/L (12-78); BILIRUBIN,TOTAL 0.4 MG/DL (0.2-1.0); BLOOD UREA NITROGEN 6 MG/DL (7-18); CALCIUM LEVEL 7.9 MG/DL (8.5-10.1); CARBON DIOXIDE LEVEL 31 MEQ/L (21-32); CHLORIDE LEVEL 106 MEQ/L (98-107); CREATININE FOR GFR 0.61 MG/DL (0.70-1.30); GLOMERULAR FILTRATION RATE > 60.0 (>56); GLUCOSE, FASTING 115 MG/DL (70-100); POTASSIUM SERUM 3.9 MEQ/L (3.5-5.1); SODIUM LEVEL 140 MEQ/L (136-145); TOTAL PROTEIN 5.8 GM/DL (6.4-8.2); VANCOMYCIN LEVEL TROUGH 11.3 UG/ML (10.0-20.0)
[2021-10-02 09:14] LABS: ERYTHROCYTE SEDIMENTATION RATE 58 mm/hr (0-20)
--- NOTE | 2021-10-02 10:46 | IPNPDOC ---
Date Seen The patient was seen on 10/02/21. Progress Note SUBJECTIVE: Complains of 10 out of 10 pain despite IV Dilaudid as needed. No fever chills. Patient denies paresthesias or weakness of fingers on the left upper extremity. No shortness of breath OBJECTIVE: Vitals: See below General: Sitting on the side of the bed the patient is awake, alert and oriented to person, place and time, no distress, no JVD, thyromegaly or cervical lymphadenopathy. Speaks in full sentences Lungs: Clear to auscultation, no wheezing, rales or rhonchi. Heart: S1, S2, sinus rhythm. Abdomen: Soft, nontender, nondistended, positive bowel sounds. Extremities: No pitting edema, bilateral lower extremities. Left arm is bandaged. Radial and ulnar pulses are intact. The patient was able to move his fingers, no cyanosis. Laboratory data, imaging study, microbiology: Please see the chart. ASSESSMENT AND PLAN: This is a 55-year-old male with a history of hepatitis C, smoker, social alcohol use, denies recreational drug use, presented with left arm pain, swelling, noted to have necrotizing fasciitis with air on CT of the upper extremity, brought emergently to the operating room for incision, drainage and surgical debridement with 100 mL of purulence noted as well as 1/3 of the biceps muscle, noted to have significant necrosis on 09/30/2021, status post muscular biopsy of the biceps musculature with 1/4 of his biceps tendon with necrotic and brown hue debrided. IMPRESSION: 1. Necrotizing fasciitis of the left upper extremity, status post debridement, resection of tissue, 1/3 of the biceps muscle and 1/4 of the biceps tendon. Patient has had little pain control with IV Dilaudid as needed. vancomycin and meropenem, Infectious disease consulted. 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 Tobacco abuse. Cessation counseling nicotine replacement 3. alcohol use [facility] protocol multivitamin thiamine folate is banana bag given yesterday 4. History of hepatitis C with tattoos noted in left anterior chest and arm, followed as outpatient by Dr. Supa Ellison. 5. DVT prophylaxis. Compression stockings for now since the patient will be going to the OR for washout Saturday VS, I&O, 24H, Fishbone Vital Signs/I&O Vital Signs Date Time Temp Pulse Resp B/P (MAP) Pulse Ox O2 Delivery O2 Flow Rate FiO2 10/02/21 09:51 97 Nasal Cannula 2.0 10/02/21 08:33 18 10/02/21 08:00 97.9 95 126/70 (88) I&O- Last 24 Hours up to 6 AM 10/02/21 06:00 Intake Total 3540 ml Output Total 975 ml Balance 2565 ml Laboratory Data 24H LABS Laboratory Tests 2 10/02/21 08:15: Anion Gap 3L, Glomerular Filtration Rate > 60.0, Calcium Level 7.9L, Total Bilirubin 0.4, Aspartate Amino Transf (AST/SGOT) 39H, Alanine Aminotransferase (ALT/SGPT) 36, Alkaline Phosphatase 88, C-Reactive Protein, Quantitative 15.40H, Total Protein 5.8L, Albumin 2.5L, Albumin/Globulin Ratio 0.8, Vancomycin Level Trough 11.3 10/02/21 08:20: Immature Granulocyte % (Auto) 0.5, Neutrophils (%) (Auto) 77.1H, Lymphocytes (%) (Auto) 13.0L, Monocytes (%) (Auto) 6.9, Eosinophils (%) (Auto) 2.0, Basophils (%) (Auto) 0.5, Neutrophils # (Auto) 7.2, Lymphocytes # (Auto) 1.2L, Monocytes # (Auto) 0.7, Eosinophils # (Auto) 0.2, Basophils # (Auto) 0.1, Nucleated Red Blood Cells % (auto) 0.0, Erythrocyte Sedimentation Rate 58H CBC/BMP Laboratory Tests 10/02/21 08:15 10/02/21 08:20 Microbiology Microbiology 09/30/21 Anaerobic Culture, Received Pending 09/30/21 Gram Stain - Final, Resulted 09/30/21 Abscess Culture - Preliminary, Resulted Streptococcus Group C 09/30/21 Gram Stain - Final, Resulted 09/30/21 Surgical Biopsy Culture - Preliminary, Resulted Streptococcus Group C 09/30/21 Anaerobic Culture, Resulted Pending 09/30/21 Blood Culture - Preliminary, Resulted No Growth after 48 hours. All Specime... 09/30/21 Blood Culture - Preliminary, Resulted GREGORY LEE MD Oct 02, 2021 10:46
[2021-10-02] MEDS: HYDROmorphone 2 MG TAB PO SCH (20:12)
[2021-10-02] MEDS: KETOROLAC 30 MG/ML 1ML VIAL IV SCH (22:12)
[2021-10-03] MEDS: VANCOMYCIN HCL 750 MG, VIAL MATE ADAPTER 1 EACH in NS 250 ML IV SCH (00:14)
[2021-10-03] MEDS: NS 1,000 ML IV SCH (00:14)
[2021-10-03] MEDS: VANCOMYCIN HCL 500 MG in D5W MINI-BAG PLUS 100 ML IV SCH (01:31)
[2021-10-03] MEDS: HYDROmorphone 2 MG TAB PO SCH ×2 (02:18→08:07)
[2021-10-03] MEDS: KETOROLAC 30 MG/ML 1ML VIAL IV SCH ×3 (04:00→16:57)
[2021-10-03] MEDS: MEROPENEM INJ 1 GM in IV 1 EA IV SCH (04:06)
[2021-10-03 06:00] VITALS: BP 136/96
[2021-10-03] MEDS: MULTIVITAMINS/MINERALS THERAP 1 TAB PO SCH (08:03)
[2021-10-03] MEDS: FOLIC ACID 1 MG TAB PO SCH (08:03)
[2021-10-03] MEDS: NICOTINE 7 MG/24 HR TRANSDERMAL TD SCH (08:04)
[2021-10-03] MEDS: PIPERACILLIN/TAZOBACTAM SOD 3.375 GM in D5W MINI-BAG PLUS 50 ML IV SCH ×3 (08:05→21:48)
[2021-10-03] MEDS ORDERED: NALOXONE INJ 0.4MG/1ML VIAL (J2310 PER 1MG) IV PRN (08:25)
[2021-10-03] MEDS ORDERED: HYDROmorphone HCL 2 MG/ML 1ML VIAL IV ONE ×3 (09:00→14:45)
[2021-10-03] MEDS ORDERED: diazePAM 5MG TABLET PO SCH ×2 (09:00→12:00)
[2021-10-03 10:23] LABS: BASO # 0.1 10^3/uL (0.0-0.2); BASO % 0.6 % (0.0-1.0); EOS # 0.2 10^3/uL (0.0-0.5); EOS % 2.3 % (0.0-3.0); HEMATOCRIT 33.3 % (42.0-52.0); HEMOGLOBIN 11.1 g/dl (13.5-17.5); LYMPH # 0.8 10^3/uL (1.5-5.0); LYMPH % 9.6 % (24.0-44.0); MEAN CORPUSCULAR HEMOGLOBIN 31.1 pg (27.0-33.0); MEAN CORPUSCULAR HGB CONC 33.3 g/dl (32.0-36.5); MEAN CORPUSCULAR VOLUME 93.3 fl (80.0-96.0); MONO # 0.5 10^3/uL (0.0-0.8); MONO % 5.6 % (2.0-8.0); NEUTROPHILS # 6.6 10^3/uL (1.5-8.5); NEUTROPHILS % 81.4 % (36.0-66.0); PLATELET COUNT, AUTOMATED 333 10^3/uL (150-450); RED BLOOD COUNT 3.57 10^6/uL (4.30-6.10); WHITE BLOOD COUNT 8.1 10^3/uL (4.0-10.0)
[2021-10-03 10:39] LABS: INR 0.93; PROTHROMBIN TIME 12.8 SECONDS (12.7-14.5)
[2021-10-03 10:40] LABS: PARTIAL THROMBOPLASTIN TIME 36.3 SECONDS (25.9-37.0)
[2021-10-03 10:55] LABS: ERYTHROCYTE SEDIMENTATION RATE 54 mm/hr (0-20)
[2021-10-03] MEDS ORDERED: diazePAM 10MG/2ML SYRINGE (J3360 PER 5MG) IV ONE ×2 (10:55→14:45)
[2021-10-03 11:35] LABS: ALBUMIN 2.5 GM/DL (3.2-5.2); ALT/SGPT 47 U/L (12-78); BILIRUBIN,TOTAL 0.4 MG/DL (0.2-1.0); BLOOD UREA NITROGEN 6 MG/DL (7-18); CALCIUM LEVEL 8.5 MG/DL (8.5-10.1); CARBON DIOXIDE LEVEL 30 MEQ/L (21-32); CHLORIDE LEVEL 108 MEQ/L (98-107); GLOMERULAR FILTRATION RATE > 60.0 (>56); GLUCOSE, FASTING 102 MG/DL (70-100); POTASSIUM SERUM 4.4 MEQ/L (3.5-5.1); SODIUM LEVEL 141 MEQ/L (136-145)
[2021-10-03] MEDS: D5W/0.45% SODIUM CHLORIDE 1,000 ML IV SCH (11:50)
--- NOTE | 2021-10-03 11:53 | IPN ---
PROGRESS NOTE DATE: 10/03/2021 SUBJECTIVE: Patient complains of severe pain at 10/10 in the left upper arm. Patient has a wound-VAC with orthopedic surgery planning for a wash out today. He has been kept n.p.o. after midnight. Patient has had no fever, no chills, describes the pain as very sharp, constant. Pain medications with I.V. Dilaudid only last about 3 hours. Patient has been very uncomfortable. He denies any nausea or vomiting despite I.V. fluids. He denies any shortness of breath, chest pain, pressure or tightness. He is tearful and started to cry during the interview due to severe pain. OBJECTIVE: Vital signs: Temperature 98.7, pulse 83, respiratory rate 18, blood pressure 136/96, 95% on room air. General: Patient is anxious, in no respiratory distress. He is awake, alert and oriented to himself, answering questions appropriate, sitting at a 45 degree head of bed elevation. HEENT: Moist mucous membranes. Neck: No JVD, thyromegaly or cervical lymphadenopathy. Lungs: No stridor. Lungs are clear to auscultation, no wheezes, rhonchi or rales. Heart: S1 and S2 sinus rhythm. Abdomen: Soft, nontender, nondistended, positive bowel sounds. Extremities: Left forearm with a wound-VAC, severely tender, erythematous and swollen, limited range of motion. Patient's radial and ulnar pulses are intact. LABORATORY DATA/IMAGING STUDIES/MICROBIOLOGY: Please see the chart. ASSESSMENT: 55-year-old with history of hepatitis C, alcohol use, smoker, denies recreational drug use, presented with left arm pain/swelling and was found to have a necrotizing fasciitis. Patient said that he had a traumatic injury to that arm and was emergently brought into the OR for incision and drainage and surgical debridement with 100 mL of purulence and necrosis of the biceps and biceps tendon on 09/30/2021. IMPRESSIONS/PLAN: 1. Necrotizing fasciitis of the left upper extremity status post debridement, resection of one third of the biceps musculature and one fourth of his biceps tendon which was necrotic with a brown hue: Patient has had little pain control on I.V. 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 Dilaudid as needed and oral Dilaudid. Patient refused oral Dilaudid saying that it does not work for his pain and he is currently on I.V. Toradol, normal saline, given I.V. Dilaudid and will start on Valium 5 mg twice a day. We will need to keep an eye on his respiratory status to make sure he does not develop any respiratory distress due to depression from opioids. Narcan as needed. Ortho managing the patient's wound-VAC. He is going for a wash out with orthopedic surgery. 2. Alcohol abuse: On CIWA protocol, multivitamin, thiamine, folate. 3. Tobacco abuse: Cessation counseling has been provided. RADHA
--- NOTE | 2021-10-03 11:53 | CR ---
CONSULTATION DATE: 10/03/2021 REASON FOR CONSULTATION: I was asked to consult by Dr. Brink for evaluation of a left arm necrotizing fasciitis. HISTORY OF PRESENT ILLNESS: Monique is a 55-year-old gentleman who had noticed about a week ago that he had a pustule on his left arm. The patient at work had an incident where a piece of wood fell on his arm and then he developed severe throbbing pain which had worsened over the week prior to hospitalization. The patient had pain that he stated was a 10/10, throbbing. The arm was very swollen, warm, tender, red. The patient had some chills. He did not have any fevers. He came to the emergency room, was afebrile with a temperature of 97.9. He was evaluated by Dr. Cárdenas on 09/30 and was diagnosed with necrotizing fasciitis and taken to the operating room. The patient had an abscess. Approximately 100 mL of purulent fluid was removed and the biceps had necrosis about 1/3 of the muscle. Cultures are growing group C Streptococcus. He has positive blood cultures as well. He was started on IV vancomycin and Zosyn. He still has significant pain but otherwise is doing well. PAST MEDICAL HISTORY: Significant for a history of drug abuse, denies use currently. Hepatitis C with continuous remission, had been evaluated by myself in the past. Traumatic accident to his left foot, status post transmetatarsal amputation. PAST SURGICAL HISTORY: Right femur, right knee replacement, left transmetatarsal amputation of the foot. Skin graft from the left forearm to the left foot. SOCIAL HISTORY: He is a smoker, about 5 cigarettes a day. He drinks beer, two beers every other day. 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 FAMILY HISTORY: Mother of renal failure and hypertension at 72. ALLERGIES: No known drug allergies. MEDICATIONS: 1. Vancomycin IV 1.25 gm q.8 hours. 2. Ketorolac 30 mg IV q.6 hours. 3. Hydromorphone 2 mg p.o. q.6 hours. 4. Benadryl 12.5 mg IV q.4 p.r.n. 5. Nicotine patch daily. 6. Meropenem 1 gm IV q.8 hours. LABORATORY DATA: White count on admission was 22.4, currently 9.4, hemoglobin 10.2, hematocrit 30.6, platelets 255, 77% neutrophils, 13% lymphocytes, 7% monocytes, ESR 58. Sodium 140, potassium 3.9, chloride 106, bicarb 31, BUN 6, creatinine 6.61, glucose 115, calcium 7.9, bilirubin 0.4. AST 39, ALT 36. Alk phos 88, CRP 25.9 down to 15.4. Total protein 5.8. Procalcitonin 0.35. Blood culture: One out of two sets on 09/30 was positive for gram positive in chains. Arm culture, 09/30 had group C Strep. Anaerobic cultures are pending. I called the lab and discussed findings in the plate and there was no MRSA in any of the plates. Blood cultures repeated on 10/02 are pending. IMAGING: Chest x-ray showed no acute cardiopulmonary disease. Degenerative changes of spine. Vascular ultrasound: No ultrasonographic evidence of deep venous thrombosis. Exam is limited by significant swelling and there was an echogenic focus consistent with an abscess of the biceps. Upper extremity CT angiogram shows an intermuscular abscess measuring 8.7 x 4.9 x 4.8 in the biceps with subcutaneous air. X-ray of the humerus shows a large focus of subcutaneous air in the deep tissues without any fractures. PHYSICAL EXAMINATION: General: He is a healthy looking gentleman in moderate discomfort, crying, apologizing to the nurse. Vital Signs: Temperature is 98.3, pulse 83, respirations 16, blood pressure 139/72, O2 sat 92% on room air. Heart: Normal S1, S2, no murmurs, rubs or gallops. Lungs: Clear. No wheezes, rales or rhonchi. Abdomen: Soft, nontender, no hepatosplenomegaly. Extremities: No clubbing, cyanosis or edema, no calf tenderness. Left foot transmetatarsal amputation. Left forearm has a surgical scar for a skin graft that is well healed. Left biceps had a large incision measuring at least 15 cm with a VAC device. The arm is swollen, warm, tender. There is a skin redness along the left arm extending into the chest with redness and tenderness. IMPRESSION: This is a 55-year-old gentleman with necrotizing fasciitis of the left arm involving the biceps with group C Strep and probably polymicrobial infection. According to the lab, there were anaerobes growing. He also has second alpha Streptococcus. The patient has no history of MRSA. MRSA screen was negative and there is no MRSA growing in the plates. The patient has gone to the operating room and had emergency surgery with improvement of symptoms, white count and swelling have decreased. PLAN: Discontinue IV vancomycin. There is no MRSA on cultures. Discontinue IV Meropenem, deescalate to IV Zosyn 3.375 gm q.6 hours. Continue with wound VAC. The patient will need some IV antibiotics for at least 7-10 days until clinically better. Echocardiogram will be done although endocarditis is very unlikely. This is necrotizing fasciitis from a polymicrobial infection. It has been ordered by the hospitalist team. Repeat blood cultures are pending. RADHA
[2021-10-03 14:00] VITALS: BP 134/76
[2021-10-03 14:39] VITALS: BP 137/75
[2021-10-03] MEDS ORDERED: ALPRAZolam 0.5 MG TAB PO ONE (17:35)
--- NOTE | 2021-10-03 18:20 | IPNPDOC ---
Subjective Date Seen The patient was seen on 10/03/21. Subjective Chief Complaint/HPI SUBJECTIVE: Pt is anxious he states he's been waiting for ortho surgery today. He was given breakfast but then it was taken away b/c of the decision to take him to OR later today. He's frustrated and hungry . Otherwise, he says that he's been without any fevers, but still experiencing night sweats. Denies chills, nausea, vomiting, diarrhea. His arm is more swollen and erythematous but pitting edema likely from fluid extravasation. OBJECTIVE: VS: SEE BELOW General: Elderly gentleman seen in bed without any acute distress. Seems to be in better mood today. AAOx3 Cardio: Normal S1, S2, no murmurs, rubs or gallops. No peripheral pitting edema in lower extremities. Pulmonary: Clear on auscultation. No wheezing rhonchi or rales appreciated clear. Abdomen: Soft, nontender, no hepatosplenomegaly. Normal bowel sounds Extremities: No clubbing, cyanosis or edema, or calf tenderness. Left foot transmetatarsal amputation. Left forearm has a surgical scar for a skin graft that is well healed. Left biceps had a large incision measuring at least 15 cm with the wound VAC device draining bloody fluid. Left arm is swollen erythematous and has 3+ pitting edema down to the hand. Axilla erythema extends into the armpit region. Left> rt ? candidiasis Previous erythema extending into the chest has receded significantly. MSK: Normal range of motion throughout. MICROBIOLOGY: 09/30/2021 left arm Gram stain shows many WBCs and gram-positive cocci in chains and gram-positive rods as well as many gram-negative rods. Abscess culture show s Streptococcus group C and strep anginnosis. 09/30/2021 anaerobic culture pending 10/02/2021 blood cultures x2 no growth after 24 hours IMPRESSION AND PLAN: Polymicrobial Necrotizing fasciitis of the left arm. Cultures have grown group C strep / strep anginosus and Anaerobic culture is still pending. The patient has no history of MRSA and MRSA screen here was negative . blood cultures with strep mitis/ staph homminis 1/2 from 09/30 and negative 10/02 IV vancomycin and Merrem have been DC'd. Echo was ordered however likelihood of endocarditis is very low. Continue with Zosyn 3.375 g IV every 6 hours for at least 7 to 10 days depending on clinical status. Spoke with orthopedic surgeon Dr. Cárdenas who will take patient to the OR and explore the wound and depending on whether the muscle looks healthy or not, he may debride more or close the wound. It was communicated that from the infectious disease point that we do not recommending closing the wound as it is still very swollen at this time. VS, I&O, 24H, Fishbone Vital Signs/I&O Vital Signs Date Time Temp Pulse Resp B/P (MAP) Pulse Ox O2 Delivery O2 Flow Rate FiO2 10/03/21 15:53 18 10/03/21 14:39 64 137/75 10/03/21 14:00 98.0 94 Room Air 10/02/21 09:51 2.0 I&O- Last 24 Hours up to 6 AM 10/03/21 06:00 Intake Total 2905 ml Output Total 1850 ml Balance 1055 ml Laboratory Data 24H LABS Laboratory Tests 2 10/03/21 09:59: Immature Granulocyte % (Auto) 0.5, Neutrophils (%) (Auto) 81.4H, Lymphocytes (%) (Auto) 9.6L, Monocytes (%) (Auto) 5.6, Eosinophils (%) (Auto) 2.3, Basophils (%) (Auto) 0.6, Neutrophils # (Auto) 6.6, Lymphocytes # (Auto) 0.8L, Monocytes # (Auto) 0.5, Eosinophils # (Auto) 0.2, Basophils # (Auto) 0.1, Nucleated Red Blood Cells % (auto) 0.0, Erythrocyte Sedimentation Rate 54H, Prothrombin Time 12.8, Prothromb Time International Ratio 0.93, Activated Partial Thromboplast Time 36.3, Anion Gap 3L, Glomerular Filtration Rate > 60.0, Calcium Level 8.5, Total Bilirubin 0.4, Aspartate Amino Transf (AST/SGOT) 50H, Alanine Aminotransferase (ALT/SGPT) 47, Alkaline Phosphatase 107, C-Reactive Protein, Quantitative 10.10H, Total Protein 6.0L, Albumin 2.5L, Albumin/Globulin Ratio 0.7 CBC/BMP Laboratory Tests 10/03/21 09:59 Microbiology Microbiology 10/02/21 Blood Culture - Preliminary, Resulted No growth after 24 hours . All specim... 10/02/21 Blood Culture - Preliminary, Resulted No growth after 24 hours . All specim... 09/30/21 Anaerobic Culture, Received Pending 09/30/21 Gram Stain - Final, Resulted 09/30/21 Abscess Culture - Preliminary, Resulted Streptococcus Group C Strep Anginosus Grp 09/30/21 Gram Stain - Final, Resulted 09/30/21 Surgical Biopsy Culture - Final, Resulted Streptococcus Group C Strep Anginosus Grp 09/30/21 Anaerobic Culture, Resulted Pending 09/30/21 Blood Culture - Preliminary, Resulted No Growth after 72 hours. All specime... 09/30/21 Blood Culture - Final, Complete Streptococcus Mitis Staphylococcus Hominis Ssp Perry GME ATTESTATION GME ATTESTATION My faculty preceptor for this patient encounter was physically present during the encounter and was fully available. All aspects of the patient interview, examination, medical decision making process, and medical care plan development were reviewed and approved by the faculty preceptor. The faculty preceptor is aware and concurs with the plan as stated in the body of this note and will attest to such by his/her cosignature. Joshua Drew DO Oct 03, 2021 18:01 Supa Ellison MD Oct 03, 2021 21:15
[2021-10-03] MEDS: HYDROmorphone HCL 2 MG/ML 1ML VIAL IV PRN (20:08)
[2021-10-03] MEDS ORDERED: diazePAM 10MG/2ML SYRINGE (J3360 PER 5MG) IV SCH (21:00)
[2021-10-03 22:00] VITALS: BP 119/57
[2021-10-03] MEDS ORDERED: MIDAZOLAM INJ 2MG/2ML VIAL (J2250 PER 1MG) As Ordered ONE (22:57)
[2021-10-03] MEDS ORDERED: fentaNYL 100 MCG/2 ML INJECTION (J3010) As Ordered ONE (22:58)
[2021-10-03] MEDS ORDERED: ONDANSETRON 4MG/2ML VIAL As Ordered ONE (22:58)
[2021-10-03] MEDS ORDERED: propofoL 200 MG/20 ML VIAL As Ordered ONE (22:58)
[2021-10-03] MEDS ORDERED: dexameTHASONE 4 MG/ML 1ML VIAL (J1100 PER 1MG) As Ordered ONE (22:58)
[2021-10-03] MEDS ORDERED: LIDOCAINE 2% 100MG/5ML SDV (FOR ANES.) As Ordered ONE (23:00)
[2021-10-03] MEDS ORDERED: ROCURONIUM BROMIDE 50 MG/5 ML VIAL As Ordered ONE (23:06)
[2021-10-03] MEDS ORDERED: PHENYLephrine 500MCG 5ML (100MCG/ML) SYRINGE As Ordered ONE (23:50)
[2021-10-03] MEDS ORDERED: ePHEDrine SULFATE 25 MG/5 ML(5MG/ML) SYRINGE As Ordered ONE (23:50)
[2021-10-04] VITALS (12 sets, daily range): BP systolic 99–148; BP diastolic 54–83
[2021-10-04] MEDS ORDERED: BUPIVACAINE HCL 0.25% 10ML VIAL As Ordered ONE (00:44)
[2021-10-04] MEDS ORDERED: BUPIVACAINE LIPOSOME/PF 1.3% 20ML VIAL (13.3MG/ML)(EXPAREL)(C9290 PER1MG) As Ordered ONE (00:45)
[2021-10-04] MEDS ORDERED: TRANEXAMIC ACID 100 MG/ML 10ML VIAL As Ordered ONE (00:45)
[2021-10-04] MEDS ORDERED: SUGAMMADEX SODIUM 500 MG/5 ML VIAL (BRIDION) As Ordered ONE (01:18)
[2021-10-04] MEDS ORDERED: dexameTHASONE 4 MG/ML 1ML VIAL (J1100 PER 1MG) As Ordered ONE (01:18)
[2021-10-04] MEDS ORDERED: ONDANSETRON 4MG/2ML VIAL As Ordered ONE (01:19)
[2021-10-04] MEDS ORDERED: ONDANSETRON 4MG/2ML VIAL IV PRN (03:15)
[2021-10-04] MEDS ORDERED: fentaNYL 100 MCG/2 ML INJECTION (J3010) IV PRN (03:15)
[2021-10-04] MEDS ORDERED: LR 1,000 ML IV SCH (03:15)
[2021-10-04] MEDS ORDERED: oxyCODONE 5MG TAB PO PRN (03:15)
[2021-10-04] MEDS ORDERED: HYDROMORPHONE HCL 0.5 MG/ 0.5 ML SYRINGE (J1170 PER 1) IV PRN (03:15)
[2021-10-04] MEDS: HYDROmorphone HCL 2 MG/ML 1ML VIAL IV PRN ×3 (03:26→18:29)
[2021-10-04] MEDS: PIPERACILLIN/TAZOBACTAM SOD 3.375 GM in D5W MINI-BAG PLUS 50 ML IV SCH ×4 (03:27→20:20)
[2021-10-04] MEDS: KETOROLAC 30 MG/ML 1ML VIAL IV SCH ×5 (03:27→22:23)
[2021-10-04] MEDS: D5W/0.45% SODIUM CHLORIDE 1,000 ML IV SCH ×3 (03:27→15:59)
[2021-10-04] MEDS ORDERED: HYDROmorphone HCL 2 MG/ML 1ML VIAL IV ONE (08:30)
--- NOTE | 2021-10-04 08:53 | RO ---
OPERATIVE NOTE DATE OF OPERATION: 10/04/2021 TIME: 1 a.m. PREOPERATIVE DIAGNOSIS: Left arm necrotizing fasciitis. POSTOPERATIVE DIAGNOSIS: Left arm necrotizing fasciitis. NAME OF OPERATION: Left arm repeat irrigation and debridement and upper back irrigation and debridement overlying the scapular body. SURGEON: Arron Cárdenas MD WOODEN BOX MAKER: None. SUPERVISING ATTENDING: Arron Cárdenas MD FINDINGS: The patient had what appeared to be relatively viable biceps and brachialis musculature during today's irrigation and debridement. There was no purulence appreciated. The irrigation and debridement overlying the superior scapular spine yielded no purulence and no tracking, gas gangrene along the fascial planes. INDICATIONS: This was a 55-year-old male with a left arm necrotizing fasciitis who underwent a previous irrigation and debridement on September, for the aforementioned diagnosis. At that time, he had significant purulence and necrotic tissue. He was indicated for a second irrigation and debridement of his left arm as well as a small incision overlying the superior left scapular body in order to explore for possible purulence given the patient's clinical exam. ANESTHESIA: GETA. TOURNIQUET TIME: None used. ESTIMATED BLOOD LOSS: 75 mL. IV FLUIDS: Please see anesthesia report. IV ANTIBIOTICS: Please see anesthesia report. IMPLANTS: None. CULTURES: Aerobic, anaerobic of the superior scapular region. SPECIMENS: None. DESCRIPTION OF PROCEDURE: The patient was met in the preoperative holding area where the patient's operative extremity was signed, the patient's consent was confirmed to be correct, and the patient's identity was confirmed to be correct. He was then transferred to the operating theater where he was placed in the supine position in a beach chair. A safety strap secured the patient to the bed. All bony prominences were well padded. The bilateral lower extremities had SCDs placed. A timeout was called to confirm the correct patient, correct operative extremity and correct consent. All staff were in agreement. I marked out the skin incision overlying the scapular body. I began the case by making a 2-inch incision along the scapular body in order to explore a region of concern for expanding necrotizing fasciitis. After elevating the skin flaps, I was able to probe the region with my finger. There were no open fascial planes and I did not yield any purulence. Cultures to include aerobic and anaerobic were taken and this was copiously irrigated with three liters of normal saline. I then turned my attention to the previous left arm surgical incision which was the site of necrotizing fasciitis and necrotic biceps musculature. This was explored thoroughly. There was no appreciated necrotic muscle or tissue at this time and I did not appreciate any kenny purulence. The biceps muscle reacted to electrocautery and appeared to be viable. There was significant bleeding in the region and appeared to be healthy, viable muscle and tissue. I probed the fascial planes and I was unable to yield any purulent discharge. At this time, I freshened the skin edges up with a scalpel and copiously irrigated with 6 liters normal saline. This completed the surgical irrigation and debridement of the left arm and upper scapular region. I closed the 2-inch incision overlying the scapular body with interrupted 3-0 nylon suture. I closed the previous surgical incision of the left arm necrotizing fasciitis loosely. I loosely approximated the skin edges using 2-0 nylon in interrupted fashion. This would allow drainage of the infection site. At this point in time, I injected 40 mL of Exparel within the two surgical incisions. I then placed negative pressure wound therapy incision wound VAC over the patient's left arm surgical incision. We placed Xeroform followed by 4x4s and a Tegaderm over the patient's scapular body incision. Of note I did place a TEODORO drain within the left arm in order to facilitate drainage. The negative pressure wound therapy settings were set at 125 mmHg continuous. The patient was then extubated without complication and transported to the postanesthesia care unit. At this point in time, I would like to continue trending the patient's inflammatory markers, continue to receive IV antibiotics per the infectious disease recommendations. If this patient makes clinical improvement as well as surgical site improvement and inflammatory marker improvement, he may not require a third irrigation and debridement of the left arm. He does have some significant swelling in the forearm which is mildly concerning. However, I will repeat his clinical exam over the next 3-4 days in order to determine if this is an area of infectious concern. We will continue to follow this patient to ensure that he continues to improve and this requires a third irrigation and debridement. We will proceed with that. Please contact orthopedics with any further questions.
[2021-10-04] MEDS: diazePAM 10MG/2ML SYRINGE (J3360 PER 5MG) IV SCH ×3 (09:00→20:17)
[2021-10-04] MEDS: MULTIVITAMINS/MINERALS THERAP 1 TAB PO SCH (10:56)
[2021-10-04] MEDS: FOLIC ACID 1 MG TAB PO SCH (10:57)
[2021-10-04] MEDS: NICOTINE 7 MG/24 HR TRANSDERMAL TD SCH (11:00)
[2021-10-04 11:55] LABS: HEMATOCRIT 32.5 % (42.0-52.0); HEMOGLOBIN 10.8 g/dl (13.5-17.5); MEAN CORPUSCULAR HEMOGLOBIN 31.1 pg (27.0-33.0); MEAN CORPUSCULAR HGB CONC 33.2 g/dl (32.0-36.5); MEAN CORPUSCULAR VOLUME 93.7 fl (80.0-96.0); PLATELET COUNT, AUTOMATED 370 10^3/uL (150-450); RED BLOOD COUNT 3.47 10^6/uL (4.30-6.10); WHITE BLOOD COUNT 11.3 10^3/uL (4.0-10.0)
[2021-10-04 12:10] LABS: BLOOD UREA NITROGEN 11 MG/DL (7-18); CALCIUM LEVEL 8.5 MG/DL (8.5-10.1); CARBON DIOXIDE LEVEL 31 MEQ/L (21-32); CHLORIDE LEVEL 103 MEQ/L (98-107); GLOMERULAR FILTRATION RATE > 60.0 (>56); GLUCOSE, FASTING 141 MG/DL (70-100); POTASSIUM SERUM 4.8 MEQ/L (3.5-5.1); SODIUM LEVEL 137 MEQ/L (136-145)
--- NOTE | 2021-10-04 15:20 | IPNPDOC ---
Date Seen The patient was seen on 10/04/21. Progress Note SUBJECTIVE: crying in pain 11/10 scale. no fever/chills. called and said pt had opioid addiction-taking 20tabs/day percocete last year. wbc wnl. OBJECTIVE: PE Vital signs: SEE BELOW General: No distress. aaox 3 HEENT: Moist mucous membranes. Neck: No JVD, thyromegaly or cervical lymphadenopathy. Lungs: No stridor. Lungs are clear to auscultation, no wheezes, rhonchi or rales. Heart: S1 and S2 sinus rhythm. Abdomen: Soft, nontender, nondistended, positive bowel sounds. Extremities: Left forearm with a wound-VAC,hand swollen but able to oppose thumb w 2nd to 4th digits. swollen, limited range of motion. Patient's radial and ulnar pulses are intact. LABORATORY DATA/IMAGING STUDIES/MICROBIOLOGY: Please see the chart. ASSESSMENT: 55-year-old with history of hepatitis C, alcohol use, smoker, denies recreational drug use, presented with left arm pain/swelling and was found to have a necrotizing fasciitis. Patient said that he had a traumatic injury to that arm and was emergently brought into the OR for incision and drainage and surgical debridement with 100 mL of purulence and necrosis of the biceps and biceps tendon on 09/30/2021. IMPRESSIONS/PLAN: 1. Necrotizing fasciitis of the left upper extremity status post debridement, resection of one third of the biceps musculature and one fourth of his biceps tendon which was necrotic with a brown hue: s/p washout. wound vac managed by ortho. possible need to irrigate and debride again in 2-3 days. ID consulted. on iv meropenem. iv valium q6hrs and iv dialudid prn. iv toradol ivf to prevent nadira while on iv toradol. 2. Alcohol abuse: On CIWA protocol, multivitamin, thiamine, folate. 3. Tobacco abuse: Cessation counseling has been provided. 4. h/o opioid abuse-per . 5. h/o hep c VS, I&O, 24H, Fishbone Vital Signs/I&O Vital Signs Date Time Temp Pulse Resp B/P (MAP) Pulse Ox O2 Delivery O2 Flow Rate FiO2 10/04/21 14:30 97.9 63 15 146/83 (104) 95 Room Air 10/04/21 02:11 10.0 I&O- Last 24 Hours up to 6 AM 10/04/21 06:00 Intake Total 750 ml Output Total 1620 ml Balance -870 ml Laboratory Data 24H LABS Laboratory Tests 2 10/04/21 11:24: Nucleated Red Blood Cells % (auto) 0.0, Anion Gap 3L, Glomerular Filtration Rate > 60.0, Calcium Level 8.5 CBC/BMP Laboratory Tests 10/04/21 11:24 Microbiology Microbiology 10/04/21 Gram Stain - Final, Resulted 10/04/21 Wound Culture, Resulted Pending 10/04/21 Anaerobic Culture, Resulted Pending 10/02/21 Blood Culture - Preliminary, Resulted No growth after 24 hours . All specim... 10/02/21 Blood Culture - Preliminary, Resulted No growth after 24 hours . All specim... 09/30/21 Anaerobic Culture, Received Pending 09/30/21 Gram Stain - Final, Complete 09/30/21 Abscess Culture - Final, Complete Streptococcus Group C Strep Anginosus Grp 09/30/21 Gram Stain - Final, Resulted 09/30/21 Surgical Biopsy Culture - Final, Resulted Streptococcus Group C Strep Anginosus Grp 09/30/21 Anaerobic Culture, Resulted Pending 09/30/21 Blood Culture - Preliminary, Resulted No Growth after 72 hours. All specime... 09/30/21 Blood Culture - Final, Complete Streptococcus Mitis Staphylococcus Hominis Ssp Perry GREGORY LEE MD Oct 04, 2021 15:06
--- NOTE | 2021-10-04 19:10 | CR.PDOC ---
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 When he went to work on Saturday, he was struck in the left upper arm with a 2 x 6 which fell from overhead. Since then, left upper arm, including the elbow. Patient diagnosed polymicrobial infection. Underwent to left arm I&D's on the and . Called by the nurse increased pain and swelling left forearm. Increased white blood cell but decreased CRP. Patient and nurse states increased swelling and pain left forearm. Patient had previous forearm flap vascular pedicle/graft harvesting. CT angio on admission shows intact vessels. Most of his pain is over left ulnar aspect of his forearm. He is able to move elbow wrist and hand. He states motion causes increased pain. PAST MEDICAL HISTORY: Hepatitis C treated by Dr. 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 Denies recreational drug use. In case of emergency, please call Adria Melendez [phone] FAMILY HISTORY: Father: Unknown Mother: age 72 renal failure hypertension coronary artery disease ALLERGIES: Please see below. REVIEW OF SYSTEMS: 10 point review of systems negative aside from positive findings in HPI HOME MEDICATIONS: Please see below. PHYSICAL EXAMINATION: VITAL SIGNS: See below GENERAL APPEARANCE: No respiratory distress cyanosis icterus. Moaning due to pain HEENT: Within normal limits CARDIOVASCULAR: No chest pain LUNGS: Breathing comfortably on room air ABDOMEN: Soft nontender no pain EXTREMITIES: Left forearm to the elbow significant erythema, tenderness, patient able to move left elbow forearm wrist. He states the pain is increased. Increased pain with palpation of the ulnar aspect of his forearm. old Radial and volar incision of his forearm. He states where there was possible flap or tissue harvest from his left forearm. Assessment: Necrotizing infection with polymicrobial source. Being treated with IV antibiotics. 2 previous I&D's. Increasing swelling left forearm. Possibility of further infection/question of infection down the forearm. Dis cussed with patient possibility of further infection. Difficult to discern clinically. Given the diagnosis necrotizing infection. After lengthy discussion we will proceed with I&D left forearm. Meantime of ordered preoperative blood work. Or has been booked. Patient is consented understands thoroughly risk and benefits. This will require further I&D's and delayed closure. Plan: Repeat blood work Consented for I&D left forearm and all necessary procedures Application of VAC dressing Addendum: 12:25 AM patient reexamined along with Dr. Reyes. He is tender along the ulnar border of his forearm. Increase swelling. His CRP seems to have improved. Difficult to discern if any necrotic subcutaneous tissue. Patient still states pain and swelling have increased. Decided to proceed with a ulnar- sided incision and debridement of the left forearm if necrotic tissue was found. No need to remove VAC from proximal humerus. He will need further surgery and delayed closure. Vital Signs/I&O Vital Signs Date Time Temp Pulse Resp B/P (MAP) Pulse Ox O2 Delivery O2 Flow Rate FiO2 10/04/21 18:39 18 10/04/21 18:00 98.1 80 137/75 (95) 95 Room Air 10/04/21 02:11 10.0 I&O- Last 24 Hours up to 6 AM 10/04/21 05:59 Intake Total 950 ml Output Total 1220 ml Balance -270 ml Laboratory Data Labs 24H Laboratory Tests 2 10/04/21 11:24: Nucleated Red Blood Cells % (auto) 0.0, Anion Gap 3L, Glomerular Filtration Rate > 60.0, Calcium Level 8.5 CBC/BMP Laboratory Tests 10/04/21 11:24 Microbiology Microbiology 10/04/21 Gram Stain - Final, Resulted 10/04/21 Wound Culture, Resulted Pending 10/04/21 Anaerobic Culture, Resulted Pending 10/02/21 Blood Culture - Preliminary, Resulted No Growth after 48 hours. All Specime... 10/02/21 Blood Culture - Preliminary, Resulted No Growth after 48 hours. All Specime... 09/30/21 Anaerobic Culture, Received Pending 09/30/21 Gram Stain - Final, Complete 09/30/21 Abscess Culture - Final, Complete Streptococcus Group C Strep Anginosus Grp 09/30/21 Gram Stain - Final, Resulted 09/30/21 Surgical Biopsy Culture - Final, Resulted Streptococcus Group C Strep Anginosus Grp 09/30/21 Anaerobic Culture, Resulted Pending 09/30/21 Blood Culture - Preliminary, Resulted No Growth after 72 hours. All specime... 09/30/21 Blood Culture - Final, Complete Streptococcus Mitis Staphylococcus Hominis Ssp Perry Allergies Coded Allergies: No Known Allergies (Unverified , 03/02/19) Home Medications No Active Prescriptions or Reported Meds DENIS MONTANEZ MD Oct 04, 2021 19:10
[2021-10-04 19:17] LABS: HEMATOCRIT 30.9 % (42.0-52.0); HEMOGLOBIN 10.4 g/dl (13.5-17.5); MEAN CORPUSCULAR HEMOGLOBIN 31.2 pg (27.0-33.0); MEAN CORPUSCULAR HGB CONC 33.7 g/dl (32.0-36.5); MEAN CORPUSCULAR VOLUME 92.8 fl (80.0-96.0); PLATELET COUNT, AUTOMATED 359 10^3/uL (150-450); RED BLOOD COUNT 3.33 10^6/uL (4.30-6.10); WHITE BLOOD COUNT 12.7 10^3/uL (4.0-10.0)
[2021-10-04 19:42] LABS: BLOOD UREA NITROGEN 13 MG/DL (7-18); C REACTIVE PROTEIN QUANTITATIV 5.02 MG/DL (0.00-0.30); CALCIUM LEVEL 8.5 MG/DL (8.5-10.1); CARBON DIOXIDE LEVEL 35 MEQ/L (21-32); CHLORIDE LEVEL 102 MEQ/L (98-107); CREATININE FOR GFR 0.87 MG/DL (0.70-1.30); GLOMERULAR FILTRATION RATE > 60.0 (>56); GLUCOSE, FASTING 113 MG/DL (70-100); POTASSIUM SERUM 4.5 MEQ/L (3.5-5.1); SODIUM LEVEL 140 MEQ/L (136-145)
[2021-10-05] VITALS (11 sets, daily range): BP systolic 125–155; BP diastolic 71–92
[2021-10-05] MEDS ORDERED: fentaNYL 100 MCG/2 ML INJECTION (J3010) As Ordered ONE ×2 (00:18→01:28)
[2021-10-05] MEDS ORDERED: BUPIVACAINE LIPOSOME/PF 1.3% 20ML VIAL (13.3MG/ML)(EXPAREL)(C9290 PER1MG) As Ordered ONE (00:18)
[2021-10-05] MEDS ORDERED: propofoL 200 MG/20 ML VIAL As Ordered ONE ×2 (00:18→00:58)
[2021-10-05] MEDS ORDERED: BUPIVACAINE HCL 0.25% 10ML VIAL As Ordered ONE (00:18)
[2021-10-05] MEDS ORDERED: MIDAZOLAM INJ 2MG/2ML VIAL (J2250 PER 1MG) As Ordered ONE (00:18)
[2021-10-05] MEDS ORDERED: LIDOCAINE 2% 100MG/5ML SDV (FOR ANES.) As Ordered ONE (00:19)
[2021-10-05] MEDS ORDERED: KETAMINE HCL 200 MG/20 ML VIAL As Ordered ONE (00:57)
[2021-10-05] MEDS: fentaNYL 100 MCG/2 ML INJECTION (J3010) IV PRN ×4 (01:29→01:47)
[2021-10-05] MEDS ORDERED: ONDANSETRON 4MG/2ML VIAL IV PRN (01:30)
[2021-10-05] MEDS ORDERED: LR 1,000 ML IV SCH (01:30)
[2021-10-05] MEDS ORDERED: HYDROMORPHONE HCL 0.5 MG/ 0.5 ML SYRINGE (J1170 PER 1) IV PRN (01:30)
[2021-10-05] MEDS ORDERED: oxyCODONE 5MG TAB PO PRN (01:30)
--- NOTE | 2021-10-05 01:31 | ROOPDOC ---
[facility] Report Of Operation Report of Operation DATE OF PROCEDURE: 10/05/21 PREPROCEDURE DIAGNOSES: [Left forearm swelling and increased pain, known necrotizing infection of the left upper extremity biceps compartment.]. POSTPROCEDURE DIAGNOSES: [Left forearm swelling, significant subcutaneous edema, no necrotizing subcutaneous tissue of the forearm.]. PROCEDURE PERFORMED: [Left ulnar incision and debridement]. SURGEON: [Sean arias], COMPRESSOR STATION CHIEF ENGINEER: [None], ANESTHESIA: [Sedation by anesthesia and local anesthetic Marcaine and Exparel]. ESTIMATED BLOOD LOSS: Approximately [5 cc] mL. COMPLICATIONS: [None]. REMARKS: . FINDINGS: [No necrotic subcutaneous tissue. Significant subcutaneous edema.] SPECIMENS REMOVED: [None] PROCEDURE NOTE: . DESCRIPTION OF PROCEDURE: [Patient was met in the holding area. H&P was reviewed. Consent was confirmed. Patient continued to have significant left arm swelling and pain with palpation especially along the ulnar border of his left forearm. VAC and drain in situ from previous I&D. Confirmed necrotizing infection of the proximal biceps. Patient continued to complain of increased pain and swelling. Patient brought into the operating room. Transferred in a supine position on the operating table. Left arm abducted over radiolucent armboard. He was given sedation by anesthesia in usual manner. Timeout was performed. Left forearm was then prepped and draped leaving the proximal VAC and drain in situ. He was prepped for the fingers up to about his elbow. We then made a 2 inch incision along the ulnar border of his forearm where he was the most boggy and complained about the pain. After the skin we met by significant subcutaneous edema. We probed the subcutaneous tissues with a snap and with blunt finger dissection. We found no necrotic tissue or drainage. With compression of the forearm we got a clear ED to protect fluid from the wound. His fascial compartments are soft. Do not proceed with any further incisional debridement. We were happy there were no gross signs of infection. The small wound was irrigated copious amounts of saline. It was then loosely approximated with 3-0 nylon. A sterile absorbent dressing was placed along the incision Plan: Patient will return to the [facility] and continue his preoperative IV antibiotics. He will require further I&D's for his proximal wound and a delayed closure. I will defer back to his initial provider for planning of these procedures.]. SEAN MONTANEZ MD Oct 05, 2021 01:31
[2021-10-05] MEDS: PIPERACILLIN/TAZOBACTAM SOD 3.375 GM in D5W MINI-BAG PLUS 50 ML IV SCH ×4 (03:37→20:11)
[2021-10-05] MEDS: diazePAM 10MG/2ML SYRINGE (J3360 PER 5MG) IV SCH ×4 (03:37→20:11)
[2021-10-05] MEDS: D5W/0.45% SODIUM CHLORIDE 1,000 ML IV SCH ×2 (03:37→16:13)
[2021-10-05] MEDS: KETOROLAC 30 MG/ML 1ML VIAL IV SCH ×4 (04:24→22:26)
[2021-10-05] MEDS: HYDROmorphone HCL 2 MG/ML 1ML VIAL IV PRN ×4 (08:36→20:11)
[2021-10-05] MEDS: FOLIC ACID 1 MG TAB PO SCH (08:56)
[2021-10-05] MEDS: MULTIVITAMINS/MINERALS THERAP 1 TAB PO SCH (08:56)
[2021-10-05] MEDS: NICOTINE 7 MG/24 HR TRANSDERMAL TD SCH (08:57)
--- NOTE | 2021-10-05 12:34 | IPNPDOC ---
Text Note Date of Service The patient was seen on 10/05/21. NOTE Subjective: Patient seen and examined at bedside. No acute overnight events reported. Patient voices no new medical complaints this morning. Objective: Vital Signs: reviewed General: NAD, lying comfortably in bed HEENT: NC/AT, EOMI Neck: supple, no masses Chest: lungs CTA B/L Heart: +S1S2, RRR Abd: soft, NT, ND, +BS Skin: no rashes, multiple tattoos MSK: full ROM at large joints Neuro: no gross focal deficits Psych: AAOx3 Extremities: Left forearm with a wound-VAC, swollen, limited range of motion. Patient's radial and ulnar pulses are intact. LABORATORY DATA/IMAGING STUDIES/MICROBIOLOGY: Please see the chart. A/P: 55M with PMHx of hepatitis C, alcohol use, smoker, denies recreational drug use, presented with left arm pain/swelling and was found to have a necrotizing fasciitis. Patient said that he had a traumatic injury to that arm and was emergently brought into the OR for incision and drainage and surgical debridement with 100 mL of purulence and necrosis of the biceps and biceps tendon on 09/30/2021. #Necrotizing fasciitis of the left upper extremity status post debridement, resection of one third of the biceps musculature and one fourth of his biceps tendon which was necrotic with a brown hue: s/p washout. wound vac managed by ortho. possible need to irrigate and debride again in 2-3 days. ID consulted. on iv zosyn - started 10/03/21 - iv valium q6hrs and iv dialudid prn. iv toradol #Alcohol abuse: On CIWA protocol, multivitamin, thiamine, folate. #Tobacco abuse: Cessation counseling has been provided. #h/o opioid abuse-per . #h/o hep c #DVT prophylaxis - mechanical VS,Fishbone, I+O VS, Fishbone, I+O Laboratory Tests 10/04/21 19:05 Vital Signs Date Time Temp Pulse Resp B/P (MAP) Pulse Ox O2 Delivery O2 Flow Rate FiO2 10/05/21 12:24 18 Room Air 10/05/21 11:30 97.5 64 146/84 (104) 95 10/05/21 01:47 10.0 I&O- Last 24 Hours up to 6 AM 10/05/21 06:00 Intake Total 1800 ml Output Total 3312 ml Balance -1512 ml LEAH SANTIAGO MD Oct 05, 2021 12:34
--- NOTE | 2021-10-05 13:35 | IPNPDOC ---
Text Note Date of Service The patient was seen on 10/05/21. NOTE Patient is awake and resting in his room. States his pain has improved signi ficantly since surgery this morning. When asked how his incision was feeling he promptly removed his dressing. Patient was instructed that he should not remove his dressing but let his medical staff handle that. Patient denies any new or worsening symptoms. There was some small staining on the forearm dressing sponge. The area was cleaned with chlorhexidine and a new dressing sponge was applied. The forearm was then re-wrapped with an norm wrap. Pulses were not palpable due to the amount of swelling in the left wrist. Capillary was intact and equal bilaterally. NVI to all aspects of left hand to light touch. Able to moved wrist and fingers. Patient will continue to follow all current treatment plans. VS,Fishbone, I+O VS, Fishbone, I+O Laboratory Tests 10/04/21 19:05 Vital Signs Date Time Temp Pulse Resp B/P (MAP) Pulse Ox O2 Delivery O2 Flow Rate FiO2 10/05/21 12:35 18 Room Air 10/05/21 11:30 97.5 64 146/84 (104) 95 10/05/21 01:47 10.0 I&O- Last 24 Hours up to 6 AM 10/05/21 06:00 Intake Total 1800 ml Output Total 3312 ml Balance -1512 ml DUSTIN KLEIN Oct 05, 2021 13:35
--- NOTE | 2021-10-05 17:58 | IPNPDOC ---
Subjective Date Seen The patient was seen on 10/05/21. Subjective Chief Complaint/HPI SUBJECTIVE: Patient reports that his arm pain and swelling feel better compared to last Saturday before orthopedic went in for another few irrigation and debridements in the left forearm and scapula which did not find any necrotic tissue. Patient reports that he ate denies any other acute issues. Denies any chest pain, shortness of breath, abdominal pain, fever, chills, nausea, vomiting. OBJECTIVE: VS: SEE BELOW General: Elderly gentleman seen in bed without any acute distress. In good mood today. AAOx3 Cardio: Normal S1, S2, no murmurs, rubs or gallops. Trace pitting edema in lower extremities Pulmonary: Clear on auscultation. No wheezing rhonchi or rales appreciated clear. Abdomen: Soft, nontender, no hepatosplenomegaly. Normal bowel sounds Extremities: No clubbing, cyanosis or edema, or calf tenderness. Left foot transmetatarsal amputation. Left forearm has a surgical scar for a skin graft that is well healed. Left for earm has a new incision from the I&D closed with suture. No signs of pus around the suture site. Left biceps had a large incision measuring at least 15 cm with the wound VAC device draining bloody fluid. Left scapula has an incision closed with sutures. Left arm swelling is less erythematous and swollen and has 1+ pitting edema down to the hand. Previous erythema extending into the chest has receded significantly. MSK: Normal range of motion throughout. MICROBIOLOGY: 09/30/2021 left arm Gram stain and abscess culture and surgical biopsy culture shows Streptococcus group C and strep anginosis 09/30/2021 anaerobic culture pending 09/30/2021 blood cultures no growth after 5 days 09/30/2021 blood culture: Streptococcus mitis, Staphylococcus hominis 10/02/2021 blood cultures x2 no growth after 72 hours x 2 IMPRESSION AND PLAN: Polymicrobial Necrotizing fasciitis of the left arm. The left arm in the upper scapular region were both surgically irrigated and debrided in the scapular incision was sutured closed. A TEODORO drain within the left arm was placed to facilitate further drainage and at bedside there was a good amount of serosanguineous fluid. A third irrigation and debridement of his left forearm was performed and again no necrotic tissue or drainage in the arm was irrigated with saline and closed with sutures. Cultures have grown group C strep / strep anginosus and Anaerobic culture is still pending. Blood cultures with strep mitis/ staph hominis 1/2 from 09/30 and negative 10/02. The patient on IV zosyn doing well . Echo was ordered however likelihood of endocarditis is very low. Continue with Zosyn 3.375 g IV every 6 hours for at least 7 to 10 days depending on clinical status then can be switched to PO augmentin. VS, I&O, 24H, Fishbone Vital Signs/I&O Vital Signs Date Time Temp Pulse Resp B/P (MAP) Pulse Ox O2 Delivery O2 Flow Rate FiO2 10/05/21 16:46 18 Room Air 10/05/21 14:00 97.3 79 155/77 (103) 94 10/05/21 01:47 10.0 I&O- Last 24 Hours up to 6 AM 10/05/21 06:00 Intake Total 1800 ml Output Total 3312 ml Balance -1512 ml Laboratory Data 24H LABS Laboratory Tests 2 10/04/21 19:05: Nucleated Red Blood Cells % (auto) 0.0, Anion Gap 3L, Glomerular Filtration Rate > 60.0, Calcium Level 8.5, C-Reactive Protein, Quantitative 5.02H CBC/BMP Laboratory Tests 10/04/21 19:05 Microbiology Microbiology 10/04/21 Gram Stain - Final, Resulted 10/04/21 Wound Culture, Resulted Pending 10/04/21 Anaerobic Culture, Resulted Pending 10/02/21 Blood Culture - Preliminary, Resulted No Growth after 72 hours. All specime... 10/02/21 Blood Culture - Preliminary, Resulted No Growth after 72 hours. All specime... 09/30/21 Anaerobic Culture, Received Pending 09/30/21 Gram Stain - Final, Complete 09/30/21 Abscess Culture - Final, Complete Streptococcus Group C Strep Anginosus Grp 09/30/21 Gram Stain - Final, Resulted 09/30/21 Surgical Biopsy Culture - Final, Resulted Streptococcus Group C Strep Anginosus Grp 09/30/21 Anaerobic Culture, Resulted Pending 09/30/21 Blood Culture - Final, Complete NO GROWTH AFTER 5 DAYS 09/30/21 Blood Culture - Final, Complete Streptococcus Mitis Staphylococcus Hominis Ssp Perry Joshua Drew DO Oct 05, 2021 17:58 Supa Ellison MD Oct 06, 2021 10:43
--- NOTE | 2021-10-05 18:29 | REP ---
INDICATION: Left arm swelling r/o DVT Please inform if positive. COMPARISON: None. TECHNIQUE: Real-time and Doppler imaging FINDINGS: No evidence of venous thrombosis in the left upper extremity is identified. The cephalic vein could not be interrogated because of the wound. IMPRESSION: No evidence of venous thrombosis is identified. <Electronically signed by Jayson Parra > 10/05/21 1400
[2021-10-06] MEDS: HYDROmorphone HCL 2 MG/ML 1ML VIAL IV PRN ×5 (00:28→21:19)
[2021-10-06 02:00] VITALS: BP 134/91
[2021-10-06] MEDS: PIPERACILLIN/TAZOBACTAM SOD 3.375 GM in D5W MINI-BAG PLUS 50 ML IV SCH ×4 (03:06→21:18)
[2021-10-06] MEDS: D5W/0.45% SODIUM CHLORIDE 1,000 ML IV SCH ×3 (03:06→21:57)
[2021-10-06] MEDS: diazePAM 10MG/2ML SYRINGE (J3360 PER 5MG) IV SCH ×4 (03:07→21:18)
[2021-10-06] MEDS: KETOROLAC 30 MG/ML 1ML VIAL IV SCH ×4 (04:02→21:19)
[2021-10-06 06:00] VITALS: BP 139/64
[2021-10-06 08:35] LABS: BASO # 0.1 10^3/uL (0.0-0.2); BASO % 1.1 % (0.0-1.0); EOS # 0.3 10^3/uL (0.0-0.5); EOS % 3.9 % (0.0-3.0); HEMATOCRIT 32.6 % (42.0-52.0); HEMOGLOBIN 10.7 g/dl (13.5-17.5); LYMPH # 1.9 10^3/uL (1.5-5.0); LYMPH % 24.6 % (24.0-44.0); MEAN CORPUSCULAR HEMOGLOBIN 30.9 pg (27.0-33.0); MEAN CORPUSCULAR HGB CONC 32.8 g/dl (32.0-36.5); MEAN CORPUSCULAR VOLUME 94.2 fl (80.0-96.0); MONO # 0.7 10^3/uL (0.0-0.8); MONO % 9.8 % (2.0-8.0); NEUTROPHILS # 4.3 10^3/uL (1.5-8.5); NEUTROPHILS % 56.9 % (36.0-66.0); PLATELET COUNT, AUTOMATED 399 10^3/uL (150-450); RED BLOOD COUNT 3.46 10^6/uL (4.30-6.10); WHITE BLOOD COUNT 7.5 10^3/uL (4.0-10.0)
[2021-10-06 08:53] LABS: BLOOD UREA NITROGEN 9 MG/DL (7-18); CALCIUM LEVEL 8.4 MG/DL (8.5-10.1); CARBON DIOXIDE LEVEL 33 MEQ/L (21-32); CHLORIDE LEVEL 106 MEQ/L (98-107); CREATININE FOR GFR 0.67 MG/DL (0.70-1.30); GLOMERULAR FILTRATION RATE > 60.0 (>56); GLUCOSE, FASTING 103 MG/DL (70-100); POTASSIUM SERUM 4.2 MEQ/L (3.5-5.1); SODIUM LEVEL 143 MEQ/L (136-145)
[2021-10-06] MEDS: MULTIVITAMINS/MINERALS THERAP 1 TAB PO SCH (10:02)
[2021-10-06] MEDS: FOLIC ACID 1 MG TAB PO SCH (10:02)
[2021-10-06] MEDS: NICOTINE 7 MG/24 HR TRANSDERMAL TD SCH (10:03)
--- NOTE | 2021-10-06 11:11 | IPNPDOC ---
Text Note Date of Service The patient was seen on 10/06/21. NOTE Subjective: Patient seen and examined at bedside. No acute overnight events reported. Patient voices no new medical complaints this morning. Objective: Vital Signs: reviewed General: NAD, lying comfortably in bed HEENT: NC/AT, EOMI Neck: supple, no masses Chest: lungs CTA B/L Heart: +S1S2, RRR Abd: soft, NT, ND, +BS Skin: no rashes, multiple tattoos MSK: full ROM at large joints Neuro: no gross focal deficits Psych: AAOx3 Extremities: Left forearm with a wound-VAC, swollen, limited range of motion. Radial and ulnar pulses are intact. A/P: 55M with PMHx of hepatitis C, alcohol use, smoker, denies recreational drug use, presented with left arm pain/swelling and was found to have a necrotizing fasciitis. Patient said that he had a traumatic injury to that arm and was emergently brought into the OR for incision and drainage and surgical debridement with 100 mL of purulence and necrosis of the biceps and biceps tendon on 09/30/2021. #Necrotizing fasciitis of the left upper extremity - status post debridement, resection of one third of the biceps musculature and one fourth of his biceps tendon which was necrotic with a brown hue -s/p washout. wound vac managed by ortho. - possible need to irrigate and debride again in 2-3 days. - ID consulted. on iv zosyn - started 10/03/21 - iv valium q6hrs and iv dialudid prn. iv toradol #bacteremia - echo pending - as above, on IV zosyn - recs for 7-10 days, transition to Augmentin as outpatient #Alcohol abuse: On CIWA protocol, multivitamin, thiamine, folate. #Tobacco abuse: Cessation counseling has been provided. #h/o opioid abuse-per . #h/o hep c #DVT prophylaxis - mechanical VS,Fishbone, I+O VS, Fishbone, I+O Laboratory Tests 10/06/21 08:18 Vital Signs Date Time Temp Pulse Resp B/P (MAP) Pulse Ox O2 Delivery O2 Flow Rate FiO2 10/06/21 06:00 97.4 73 18 139/64 (89) 97 Room Air 10/05/21 01:47 10.0 I&O- Last 24 Hours up to 6 AM 10/06/21 06:00 Intake Total 1940 ml Output Total 2875 ml Balance -935 ml LEAH SANTIAGO MD Oct 06, 2021 11:11
[2021-10-06 14:00] VITALS: BP 171/86
[2021-10-06 14:15] VITALS: BP 151/80
--- NOTE | 2021-10-06 17:14 | IPN ---
INFECTIOUS DISEASE PROGRESS NOTE DATE: 10/06/2021 SUBJECTIVE: Monique seems to be doing very well. He is walking around the floor. He still states he has some pain in his arm, but it looks great. He has a much better attitude. He is smiling. He has no fever or chills. No nausea, vomiting or diarrhea. PHYSICAL EXAMINATION: VITAL SIGNS: Temperature 98.1, pulse 72, respirations 19, blood pressure 171/86, oxygen saturation 93% on room air. HEART: Normal S1, S2. No murmurs, rubs or gallops. LUNGS: Clear. No wheezes, rubs or rhonchi. ABDOMEN: Soft, nontender. EXTREMITIES: No clubbing, cyanosis or edema. Left arm with swelling of the biceps. Minimal tenderness of the left forearm. Has an incision with sutures in place. No edema. Minimal tenderness. Left scapula with an incision with no redness or tenderness. No crepitus. LABORATORY DATA: White count 7.5, hemoglobin 10.7, hematocrit 32.6, platelets 399. Sodium 143, potassium 4.2, chloride 106, bicarbonate 33, BUN 9, creatinine 0.67, glucose 103, calcium 8.4. Wound cultures were positive for Porphyromonas, group C Streptococcus, Streptococcus anginosus and anaerobic cocci from the left arm biceps. Blood cultures: One out of two were positive for Streptococcus mitis on 09/30/2021/ On 10/02/2021, blood cultures times two and left arm culture were negative. IMPRESSION: 1. Necrotizing fasciitis of the biceps status post incision and drainage. No evidence of necrotizing fasciitis in the left forearm or scapula, status post multiple dbridements. At this point, patient seems to have markedly improved. He may go to the operating room tomorrow, hopefully, for wound closure. 2. History of alcohol abuse. Doing well on multivitamin and folate. PLAN: Continue intravenous (IV) Zosyn. Once patient is ready for discharge, he could be switched to oral Augmentin 875 mg by mouth twice a day. Patient was advised that he probably would not be able to work for at least 6-8 weeks, but that question he would need to address with surgery. RADHA
[2021-10-06 22:00] VITALS: BP 147/67
[2021-10-07] MEDS: HYDROmorphone HCL 2 MG/ML 1ML VIAL IV PRN ×6 (00:38→22:32)
[2021-10-07] MEDS: PIPERACILLIN/TAZOBACTAM SOD 3.375 GM in D5W MINI-BAG PLUS 50 ML IV SCH ×4 (03:33→20:01)
[2021-10-07] MEDS: D5W/0.45% SODIUM CHLORIDE 1,000 ML IV SCH ×2 (03:33→14:43)
[2021-10-07] MEDS: diazePAM 10MG/2ML SYRINGE (J3360 PER 5MG) IV SCH ×4 (03:33→20:01)
[2021-10-07] MEDS: KETOROLAC 30 MG/ML 1ML VIAL IV SCH ×3 (03:34→16:44)
[2021-10-07 06:00] VITALS: BP 134/65
[2021-10-07 06:44] LABS: HEMOGLOBIN 10.2 g/dl (13.5-17.5); MEAN CORPUSCULAR HEMOGLOBIN 31.1 pg (27.0-33.0); MEAN CORPUSCULAR HGB CONC 32.9 g/dl (32.0-36.5); MEAN CORPUSCULAR VOLUME 94.5 fl (80.0-96.0); PLATELET COUNT, AUTOMATED 396 10^3/uL (150-450); RED BLOOD COUNT 3.28 10^6/uL (4.30-6.10); WHITE BLOOD COUNT 7.5 10^3/uL (4.0-10.0)
[2021-10-07 07:02] LABS: BLOOD UREA NITROGEN 8 MG/DL (7-18); CALCIUM LEVEL 7.8 MG/DL (8.5-10.1); CARBON DIOXIDE LEVEL 31 MEQ/L (21-32); CHLORIDE LEVEL 108 MEQ/L (98-107); CREATININE FOR GFR 0.66 MG/DL (0.70-1.30); GLOMERULAR FILTRATION RATE > 60.0 (>56); GLUCOSE, FASTING 114 MG/DL (70-100); POTASSIUM SERUM 4.2 MEQ/L (3.5-5.1); SODIUM LEVEL 143 MEQ/L (136-145)
[2021-10-07 08:01] LABS: ATYPICAL LYMPH 1 % (0-5); BASOPHILS 3 % (0-1); EOSINOPHILS 3 % (0-3); LYMPHOCYTES 25 % (16-44); METAMYELOCYTES 2 % (0-0); MONOCYTES 2 % (0-5); MYELOCYTES 2 % (0-0); NEUTROPHILS 62 % (28-66)
[2021-10-07 08:03] LABS: PLATELET ESTIMATE NORMAL (NORMAL)
[2021-10-07] MEDS: FOLIC ACID 1 MG TAB PO SCH (08:28)
[2021-10-07] MEDS: MULTIVITAMINS/MINERALS THERAP 1 TAB PO SCH (08:28)
[2021-10-07] MEDS: NICOTINE 7 MG/24 HR TRANSDERMAL TD SCH (08:29)
--- NOTE | 2021-10-07 11:07 | IPNPDOC ---
Text Note Date of Service The patient was seen on 10/07/21. NOTE Subjective: Patient seen and examined at bedside. No acute overnight events reported. Patient voices no new medical complaints this morning. Objective: Vital Signs: reviewed General: NAD, lying comfortably in bed HEENT: NC/AT, EOMI Neck: supple, no masses Chest: lungs CTA B/L Heart: +S1S2, RRR Abd: soft, NT, ND, +BS Skin: no rashes, multiple tattoos MSK: full ROM at large joints Neuro: no gross focal deficits Psych: AAOx3 Extremities: Left forearm with a wound-VAC; TEODORO drain with serosanguineous fluid; Radial and ulnar pulses are intact. A/P: 55M with PMHx of hepatitis C, alcohol use, smoker, denies recreational drug use, presented with left arm pain/swelling and was found to have a necrotizing fasciitis. Patient said that he had a traumatic injury to that arm and was emergently brought into the OR for incision and drainage and surgical debridement with 100 mL of purulence and necrosis of the biceps and biceps tendon on 09/30/2021. #Necrotizing fasciitis of the left upper extremity - status post debridement, resection of one third of the biceps musculature and one fourth of his biceps tendon which was necrotic with a brown hue -s/p washout. wound vac managed by ortho. - ID consulted - assistance appreciated - on iv zosyn - started 10/03/21 - transition to augmentin on discharge - pain managmenet as per ortho - iv dialudid prn. iv toradol #bacteremia - as above, on IV zosyn - recs for 7-10 days, transition to Augmentin as outpatient #Alcohol abuse: IV valium, On CIWA protocol, multivitamin, thiamine, folate. #Tobacco abuse: Cessation counseling has been provided. #h/o opioid abuse #h/o hep c #DVT prophylaxis - mechanical Disposition: pending surgery/ortho follow up VS,Ruel, I+O VS, Ruel, I+O Laboratory Tests 10/07/21 06:29 Vital Signs Date Time Temp Pulse Resp B/P (MAP) Pulse Ox O2 Delivery O2 Flow Rate FiO2 10/07/21 06:23 16 Room Air 10/07/21 06:00 97.4 67 134/65 (88) 95 10/05/21 01:47 10.0 I&O- Last 24 Hours up to 6 AM 10/07/21 06:00 Intake Total 3200 ml Output Total 3750 ml Balance -550 ml LEAH SANTIAGO MD Oct 07, 2021 11:07
[2021-10-07] MEDS ORDERED: ONDANSETRON 4 MG TAB PO PRN (13:00)
[2021-10-07 14:00] VITALS: BP 132/96
[2021-10-07 21:00] VITALS: BP 142/82
[2021-10-08] MEDS: D5W/0.45% SODIUM CHLORIDE 1,000 ML IV SCH (02:59)
[2021-10-08] MEDS: PIPERACILLIN/TAZOBACTAM SOD 3.375 GM in D5W MINI-BAG PLUS 50 ML IV SCH ×2 (02:59→09:00)
[2021-10-08] MEDS: diazePAM 10MG/2ML SYRINGE (J3360 PER 5MG) IV SCH (02:59)
[2021-10-08] MEDS: HYDROmorphone HCL 2 MG/ML 1ML VIAL IV PRN ×2 (03:51→06:54)
[2021-10-08 06:00] VITALS: BP 141/74
[2021-10-08 06:35] LABS: BASO # 0.1 10^3/uL (0.0-0.2); BASO % 0.9 % (0.0-1.0); EOS # 0.4 10^3/uL (0.0-0.5); EOS % 4.6 % (0.0-3.0); HEMATOCRIT 31.3 % (42.0-52.0); HEMOGLOBIN 10.4 g/dl (13.5-17.5); LYMPH # 1.8 10^3/uL (1.5-5.0); LYMPH % 23.4 % (24.0-44.0); MEAN CORPUSCULAR HEMOGLOBIN 31.7 pg (27.0-33.0); MEAN CORPUSCULAR HGB CONC 33.2 g/dl (32.0-36.5); MEAN CORPUSCULAR VOLUME 95.4 fl (80.0-96.0); MONO # 0.6 10^3/uL (0.0-0.8); MONO % 8.1 % (2.0-8.0); NEUTROPHILS # 4.5 10^3/uL (1.5-8.5); NEUTROPHILS % 58.4 % (36.0-66.0); PLATELET COUNT, AUTOMATED 468 10^3/uL (150-450); RED BLOOD COUNT 3.28 10^6/uL (4.30-6.10); WHITE BLOOD COUNT 7.8 10^3/uL (4.0-10.0)
[2021-10-08 06:53] LABS: BLOOD UREA NITROGEN 11 MG/DL (7-18); CALCIUM LEVEL 7.9 MG/DL (8.5-10.1); CARBON DIOXIDE LEVEL 32 MEQ/L (21-32); CHLORIDE LEVEL 106 MEQ/L (98-107); CREATININE FOR GFR 0.74 MG/DL (0.70-1.30); GLOMERULAR FILTRATION RATE > 60.0 (>56); GLUCOSE, FASTING 104 MG/DL (70-100); POTASSIUM SERUM 4.5 MEQ/L (3.5-5.1); SODIUM LEVEL 141 MEQ/L (136-145)
[2021-10-08] MEDS ORDERED: FOLI1TAB11 PO ×2 (08:39→09:33)
[2021-10-08] MEDS ORDERED: NICO7PA TD ×2 (08:39→09:33)
[2021-10-08] MEDS ORDERED: THIA100TA PO ×2 (08:39→09:33)
[2021-10-08] MEDS ORDERED: VITMTA PO ×2 (08:39→09:33)
[2021-10-08] MEDS ORDERED: AUGM875T28 PO ×2 (08:39→09:33)
[2021-10-08] MEDS ORDERED: OXAZ10CA3 PO ×2 (08:43→09:33)
[2021-10-08] MEDS ORDERED: OXYC1TAB23 PO ×2 (08:43→09:33)
[2021-10-08] MEDS ORDERED: PERCOCET 5MG/325MG TAB PO PRN (08:50)
[2021-10-08] MEDS ORDERED: OXAZEPAM 10 MG CAP PO ONE (09:00)
[2021-10-08] MEDS: MULTIVITAMINS/MINERALS THERAP 1 TAB PO SCH (09:46)
[2021-10-08] MEDS: FOLIC ACID 1 MG TAB PO SCH (09:46)
[2021-10-08] MEDS: NICOTINE 7 MG/24 HR TRANSDERMAL TD SCH (09:52)
--- NOTE | 2021-10-08 10:03 | DS.PDOC ---
Discharge Summary General Date of Admission Sep 30, 2021 at 10:14 Date of Discharge 10/08/21 Discharge Summary PROCEDURES PERFORMED DURING STAY: Left arm repeat irrigation and debridement and upper back irrigation and debridement overlying the scapular body. ADMITTING DIAGNOSES: left arm necrotizing fasciitis DISCHARGE DIAGNOSES: #Necrotizing fasciitis of the left upper extremity - status post debridement, resection #bacteremia #Alcohol abuse #Tobacco abuse #h/o opioid abuse #h/o hep c COMPLICATIONS/CHIEF COMPLAINT: Necrotizing Fasciitis. HISTORY OF PRESENT ILLNESS: From H&P: 55-year-old male passed out at a alliance party on Saturday, woke up on Saturday with a knot in his left upper arm. When he went to work on Saturday, he was struck in the left upper arm with a 2 x 6 which fell from overhead. Since then, left upper arm pain, including the elbow, with increased swelling, warmth, redness, limited range of motion, pain described as sharp, throbbing 10/10 pain, making him cry. HOSPITAL COURSE: 55M with PMHx of hepatitis C, alcohol use, smoker, denies recreational drug use, presented with left arm pain/swelling and was found to have a necrotizing fasciitis. Patient said that he had a traumatic injury to that arm and was emergently brought into the OR for incision and drainage and surgical debridement, with purulence and necrosis of the biceps and biceps tendon. #Necrotizing fasciitis of the left upper extremity - status post debridement, resection of one third of the biceps musculature and one fourth of his biceps tendon which was necrotic with a brown hue -s/p washout. wound vac managed by ortho. - ID consulted - assistance appreciated - on iv zosyn - started 10/03/21 - transitioned to augmentin on discharge #bacteremia - as above, on IV zosyn - transitioned to Augmentin as outpatient #Alcohol abuse: IV valium, On CIWA protocol, multivitamin, thiamine, folate. #Tobacco abuse: Cessation counseling has been provided. #h/o opioid abuse #h/o hep c DISCHARGE MEDICATIONS: Please see below. ALLERGIES: Please see below. PHYSICAL EXAMINATION ON DISCHARGE: Vital Signs: reviewed General: NAD, lying comfortably in bed HEENT: NC/AT, EOMI Neck: supple, no masses Chest: lungs CTA B/L Heart: +S1S2, RRR Abd: soft, NT, ND, +BS Skin: no rashes, multiple tattoos MSK: full ROM at large joints Neuro: no gross focal deficits Psych: AAOx3 Extremities: Left arm norm bandage in place. pulses intact LABORATORY DATA: Please see below. DISPOSITION: Discharge home DISCHARGE INSTRUCTIONS: 1. PCP in 3-5 days 2. ortho on 10/12 as scheduled 3. ID in 5-10 days 4. Stop alcohol and illicit drug use 5. No work until re-evaluated by ortho DISCHARGE CONDITION: [Stable]. TIME SPENT ON DISCHARGE: 35 minutes. Vital Signs/I&Os Vital Signs Date Time Temp Pulse Resp B/P (MAP) Pulse Ox O2 Delivery O2 Flow Rate FiO2 10/08/21 09:47 16 10/08/21 06:54 Room Air 10/08/21 06:00 98.2 72 141/74 (96) 93 10/05/21 01:47 10.0 I&O- Last 24 Hours up to 6 AM 10/08/21 06:00 Intake Total 3240 ml Output Total 2780 ml Balance 460 ml Laboratory Data Labs 24H Laboratory Tests 2 10/08/21 05:40: Immature Granulocyte % (Auto) 4.6H, Neutrophils (%) (Auto) 58.4, Lymphocytes (%) (Auto) 23.4L, Monocytes (%) (Auto) 8.1H, Eosinophils (%) (Auto) 4.6H, Basophils (%) (Auto) 0.9, Neutrophils # (Auto) 4.5, Lymphocytes # (Auto) 1.8, Monocytes # (Auto) 0.6, Eosinophils # (Auto) 0.4, Basophils # (Auto) 0.1, Nucleated Red Blood Cells % (auto) 0.0, Anion Gap 3L, Glomerular Filtration Rate > 60.0, Calcium Level 7.9L CBC/BMP Laboratory Tests 10/08/21 05:40 Microbiology Microbiology 10/04/21 Gram Stain - Final, Complete 10/04/21 Wound Culture - Final, Complete 10/04/21 Anaerobic Culture - Final, Complete 10/02/21 Blood Culture - Final, Complete NO GROWTH AFTER 5 DAYS 10/02/21 Blood Culture - Final, Complete NO GROWTH AFTER 5 DAYS 09/30/21 Anaerobic Culture - Final, Complete Porphyromonas Asaccharolytica Anaerobic Cocci 09/30/21 Gram Stain - Final, Complete 09/30/21 Abscess Culture - Final, Complete Streptococcus Group C Strep Anginosus Grp 09/30/21 Gram Stain - Final, Complete 09/30/21 Surgical Biopsy Culture - Final, Complete Streptococcus Group C Strep Anginosus Grp 09/30/21 Anaerobic Culture - Final, Complete Porphyromonas Asaccharolytica Anaerobic Cocci 09/30/21 Blood Culture - Final, Complete NO GROWTH AFTER 5 DAYS 09/30/21 Blood Culture - Final, Complete Streptococcus Mitis Staphylococcus Hominis Ssp Perry Discharge Medications Scheduled Amoxicillin/Potassium Clav (Augmentin 875-125 Tablet) 1 Each Tablet, 1 TAB PO BID Folic Acid (Folic Acid) 1 Mg Tablet, 1 MG PO DAILY Multivitamins (Thera M Plus Tablet) 1 Each Tablet, 1 TAB PO DAILY Nicotine (Nicotine Patch) 7 Mg Patch.td24, 1 PATCH TD DAILY Oxazepam (Oxazepam) 10 Mg Capsule, 10 MG PO as directed 1 tab every 6 hours x 1 day, then 1 tab every 8 hours x 1 day, then 1 tab every 12 hours x 1 day then stop Thiamine Hcl (Vitamin B-1) 100 Mg Tablet, 1 TAB PO DAILY Scheduled PRN Oxycodone HCl/Acetaminophen (Oxycodone-Acetaminophen 5-325) 1 Each Tablet, 1 TAB PO TIDP PRN for pain Allergies Coded Allergies: No Known Allergies (Unverified , 03/02/19) LEAH SANTIAGO MD Oct 08, 2021 10:03
== END 2021-10-08 10:54 | disposition home or self-care (01) | DRG 317 ==
LOC: M ED 08:16 → M ED INP 10:14 → M PCU 15:15 → UNDODISIN 10-02 14:10 → M MSPAV 10-02 14:59
PROVIDERS: ADMIT General Practice; ATTEND Internal Medicine
PROC: 0LB40ZZ Excision of Left Upper Arm Tendon, Open Approach (ICD-10-PCS; principal; 2021-09-30 10:25)
PROC: 0K980ZZ Drainage of Left Upper Arm Muscle, Open Approach (ICD-10-PCS; 2021-10-04)
PROC: 0J9H0ZZ Drainage of Left Lower Arm Subcutaneous Tissue and Fascia, Open Approach (ICD-10-PCS; 2021-10-05)
DX: M72.6 Necrotizing fasciitis (principal); R78.81 Bacteremia; F10.10 Alcohol abuse, uncomplicated; F17.210 Nicotine dependence, cigarettes, uncomplicated; B18.2 Chronic viral hepatitis C

== ENCOUNTER 2021-10-10 09:20 | Inpatient (IN) | payer MEDICAID, MEDICARE ==
[~2021-10-10] VITALS: Ht 172.7 cm; Wt 81.7 kg
[2021-10-10] MEDS: MULTIVITAMINS/MINERALS THERAP 1 TAB PO SCH (09:00)
[~2021-10-10 09:20] MED LIST changes: +AUGM875T28 PO; +FOLI1TAB11 PO; +NICO7PA TD; +OXAZ10CA3 PO; +OXYC1TAB23 PO; +THIA100TA PO; +VITMTA PO
--- OUTSIDE RECORDS SUMMARY | 2021-10-10 09:29 | CCD ---
Author Author [facility] Organization [facility] Address Unknown Phone Unavailable Care Team Providers Care Mechanical Supervisor Name Role Phone PAULA MARTIN MD Unavailable [...] is protected by Article 27-F of the [facility] Public Health law. If you continue you may have access to information: Regarding HIV / AIDS; Provided by facilities licensed or operated by the [facility] Office of Mental Health; or Provided by the [facility] Office for People With Developmental Disabilities. If such information is present, then the following [facility] mandated warning applies: This information has [...] law may result in a fine or [place] health care facility sentence or both. A general authorization for the release of medical or other information is NOT sufficient authorization for further disc losure. Allergies and Adverse Reactions Type Description Substance Reaction Status Data Source(s ) Drug allergy Drug allergy No Known Allergies [facility] Family History Family Member Name Family Member Gender Family Member Status Date o f Status Description Data Source(s) Unknown Unknown Encounters Encounter Providers Location Date Indications Data Source(s ) Outpatient 08/09/2021 02:40:19 PM EDT [facility] ([facility]) Outpatient Attender: Yefri Pabon PA-C 08/09/2021 02:39:46 PM EDT - 08/09/2021 04:26:50 PM EDT [facility] ([facility]) Outpatient 08/09/2021 01:56:10 PM EDT [facility] ([facility]) [place] [address] [facility] [address] 06/15/2021 12:00:00 AM EDT eCW1 ([facility]) [place] [address] [facility] [address] 06/15/2021 12:00:00 AM EDT eCW1 ([facility]) Inpatient Attender: Paula Murillo nder: PAULA MARTIN MDAdmitter: PAULA MARTIN MD [facility] 05/19/2021 07:01:00 PM EDT - 05/20/2021 11:05:00 AM EDT PSYCHOACTIVE SUBSTANCE DEPENDENCE [facility] PSYCHOACTIVE SUBSTANCE DEPENDENCE Patient discharged. Immunizations Vaccine Date Status Description Data Source(s) Moderna #2 dose COVID-19(given elsewhere) SARSCOV2 VAC 100MCG/0.5ML IM 03/13/2021 03:12:00 PM EDT completed eCW1 ([facility]) Moderna #2 dose COVID-19(given elsewhere) SARSCOV2 VAC 100MCG/0.5ML IM 03/13/2021 03:12:00 PM EDT completed eCW1 ([facility]) COVID-19 VACCINE Moderna 03/13/2021 12:00:00 AM EDT completed [facility] Vaccine Series Complete: YESThis Data wa s Submitted to [facility] Via [facility]. Moderna #1 dose COVID-19(given elsewhere) SARSCOV2 VAC 100MCG/0.5ML IM 02/10/2021 03:11:00 PM EDT completed eCW1 ([facility]) Moderna #1 dose COVID-19(given elsewhere) SARSCOV2 VAC 100MCG/0.5ML IM 02/10/2021 03:11:00 PM EDT completed eCW1 ([facility]) COVID-19 VACCINE Moderna 02/10/2021 12:00:00 AM EDT completed [facility] Vaccine Series Complete: NOThis Data was Submitted to [facility] Via [employer]. Medications Medication Brand Name Start Date Product Form Dose Route Admi nistrative Instructions Pharmacy Instructions Status Indications Reaction Description Data Source(s) Amoxicillin 875 MG / Clavulanate 125 MG Oral Tablet 87 5-125 mg AMOXICILLIN/POTASSIUM CLAV 10/08/2021 12:00:00 AM EST tablet 20 TAKE ONE TABLET BY MOUTH TWICE A DAY FOR 10 DAYS TAKE ONE TABLET BY MOUTH TWICE A DAY FOR 10 DAYS SOLD: 10/08/2021 [facility] 7 mg/24 hr 10/08/2021 12:00:00 AM EST patch 24 hour 7 APPLY 1 PATCH TOPICALLY DAILY APPLY 1 PATCH TOPICALLY DAILY SOLD: 10/08/2021 [facility] 1 mg 10/08/2021 12:00:00 AM EST tablet 20 TAKE ONE TABLET BY MOUTH EVERY DAY TAKE ONE TABLET BY MOUTH EVERY DAY SOLD: 10/08/2021 [facility] 5-325 mg 10/08/2021 12:00:00 AM EST tablet 15 TAKE ONE TABLET BY MOUTH THREE TIMES A DAY NEEDED FOR PAIN, MAXIMUM DAILY DOSE = 3 TAKE ONE TABLET BY MOUTH THREE TIMES A DAY NEEDED FOR PAIN, MAXIMUM DAILY DOSE = 3 SOLD: 10/08/2021 [facility] 10 mg 10/08/2021 12:00:00 AM EST capsule 9 TAKE ONE CAPSULE BY MOUTH EVERY 6 HOURS FOR 1 DAY, THEN TAKE ONE CAPSULE BY MOUTH EVERY 8 HOURS FOR 1 DAY, THEN TAKE ONE CAPSULE BY MOUTH EVERY 12 HOURS FOR 1 DAY THEN STOP TAKE ONE CAPSULE BY MOUTH EVERY 6 HOURS FOR 1 DAY, THEN TAKE ONE CAPSULE BY MOUTH EVERY 8 HOURS FOR 1 DAY, THEN TAKE ONE CAPSULE BY MOUTH EVERY 12 HOURS FOR 1 DAY THEN STOP SOLD: 10/08/2021 [facility] 100 mg 10/08/2021 12:00:00 AM EST tablet 30 TAKE ONE TABLET BY MOUTH EVERY DAY TAKE ONE TABLET BY MOUTH EVERY DAY SOLD: 10/08/2021 [facility] 9 mg iron-400 mcg 10/08/2021 12:00:00 AM EST tablet 20 TAKE ONE TABLET BY MOUTH EVERY DAY TAKE ONE TABLET BY MOUTH EVERY DAY SOLD: 10/08/2021 [facility] Insurance Providers Payer name Policy type / Coverage type Policy ID Covered constitution party ID Covered constitution party's relationship to carlos Policy Carlos Plan Information MEDICAID M [id number] Self [id number] MEDICARE [id number] SP [id number] A MEDICARE [id number] SP [id number] A MEDICAID [id number] SP [id number] [facility] Medicare Medicare Part B [id number] Self [id number] Medicaid Medicaid [id number] Self [id number] MEDICARE [id number] SP [id number] [place] [id number] SP [id number] MEDICARE C [id number] S [id number] MEDICAID M [id number] S [id number] MEDICAID [id number] SP [id number] MEDICARE [id number] SP [id number] MEDICARE [id number] SP [id number] A Medicare Natl Gov't Servi Medicare Primary [id number] Self MEDICAID - [id number] EMERGENCY ROOM [id number] 18 [id number] MEDICARE PART A -O/P [id number] 18 [id number] SELF PAY UNAVAILABLE SP UNAVAILA BLE OTHER WORKERS COMPENSATION [id number] SP [id number] MEDICAID - CLINIC [id number] EV [id number] MEDICAID-PHYSICIAN [id number] MEDICAID-O/P RAD ONLY [id number] MEDICAID-O/P [id number] T [facility] MEDICAID [id number] SP [id number] T [id number] MEDICARE [id number] SP [id number] A [facility] [id number] SP [id number] MEDICAID [id number] Unemployed [id number] MEDICARE [id number] Unemployed [id number] SELF PAY ONLY [id number] Problems, Conditions, and Diagnoses Code Display Name Description Problem Type Effective Dates Data Source(s) J44.9 Chronic obstructive pulmonary disease, u nspecified CHRONIC OBSTRUCTIVE PULMONARY DISEASE, UNSPECIFIED Diagnosis 05/19/2021 07:01:00 PM EDT [facility] Z53.29 Procedure and treatment not carried out because of patient's decision for other reasons PROC/TRTMT NOT CRD OUT BEC PT DECISION FOR OTH REASONS Diagn osis 05/19/2021 07:01:00 PM EDT [facility] F17.210 Nicotine dependence, cigarettes, uncompl icated NICOTINE DEPENDENCE, CIGARETTES, UNCOMPLICATED Diagnosis 05/19/2021 07:01:00 PM EDT [facility] F12.20 Cannabis dependence, uncomplicated CANNABIS DEPE NDENCE, UNCOMPLICATED Diagnosis 05/19/2021 07:01:00 PM EDT [facility] F11.20 Opioid dependence, uncomplicated OPIOID DEPENDEN CE, UNCOMPLICATED Diagnosis 05/19/2021 07:01:00 PM EDT [facility] F11.21 [id number] Opioid dependence in remission Problem 06/15/2021 12:00:00 AM EDT eCW1 ([facility]) B19.20 [id number] Hepatitis C virus in fection without hepatic coma, unspecified chronicity Problem 06/15/2021 12:00:00 AM EDT eCW1 ([facility]) Surgeries/Procedures No Information Results ID Date Data Source [id number] 09/30/2021 08:39:00 AM EDT [facility] Name Value Range Interpretation Code Description Data Kamila rce(s) Supporting Document(s) SARS coronavirus 2 RNA [Presence] in Res piratory specimen by JOANNA with probe detection NEGATIVE [facility] This lab was ordered by [facility] a nd reported by [facility]. ID Date Data Source [id number] 08/09/2021 03:00:00 PM EDT [facility] Name Value Range Interpretation Code Description Data Kamila rce(s) Supporting Document(s) SARS-CoV-2 RNA Resp Ql JOANNA+probe NOT DETECTED [facility] This lab was ordered by [facility] and reported by [facility]. ID Date Data Source [id number] 05/24/2021 11:16:00 PM EDT [facility] Name Value Range Interpretation Code Description Data Kamila rce(s) Supporting Document(s) Cannabinoids Confirm,Ur result . Very abnor mal (applies to non-numeric units [facility] Carboxy THC GC/MS Conf 22 ng/mL Cutoff=10 01 Performed at: [facility] [id number] Manager Media: Yanira Cox MD, Phone: [phone] ID Date Data Source [id number] 05/19/2021 09:03:00 PM EDT [facility] Name Value Range Interpretation Code Description Data Kamila rce(s) Supporting Document(s) Opiate Screen,Urine Negative Normal (applies to non-nume candy results) [facility] Amphetamine Screen,Urine Negative Normal (applies to non -numeric results) [facility] Benzodiazepines Scrn,Ur result Negative N ormal (applies to non-numeric results) [facility] Cocaine Screen,Urine Negative Normal (applies to non-num lucas results) [facility] Methadone Screen,Urine Negative Normal (applies to non-n umeric results) [facility] Cannabinoid Screen, Ur Negative [place] [facility] Therapeutic Drug Ranges for Emergency an d Rehabilitation Threshold Levels (ng/mL) Cocaine 300 Opiates 300 Cannabinoids 50 Barbiturates 200 Benzodiazepine 200 Methadone 300 Amphetamines 1000 All positive findings are presumptive and unconfirmed. Confirmation of positive results are performed only at request of provider. Unconfirmed results must not be used for non-medical purposes (i.e. pre-employment and legal purposes) ID Date Data Source [id number] 05/19/2021 08:48:00 PM EDT [facility] Name Value Range Interpretation Code Description Data Kamila rce(s) Supporting Document(s) Color,Urine Yellow Normal (applies to non-numeric resu lts) [facility] Clarity,Urine Clear Normal (applies to non-numeric re sults) [facility] Specific [place],Urine 1.001-1.030 Normal (applies to non- numeric results) [facility] PH,Urine 5.0-8.0 Normal (applies to non-numeric resul ts) [facility] Protein,Urine Negative Normal (applies to non-numeric re sults) [facility] Glucose,Urine (UA) Negative Normal (applies to non-numer ic results) [facility] Ketones,Urine Negative Normal (applies to non-numeric re sults) [facility] Blood,Urine Negative Normal (applies to non-numeric resu lts) [facility] Bilirubin,Urine Negative Normal (applies to non-numeric results) [facility] Urobilinogen,Urine Norm 0.2-1 Normal (applies to non-numer ic results) [facility] Leukocyte Esterase,Urine Negative Normal (applies to non -numeric results) [facility] Nitrite,Urine Negative Normal (applies to non-numeric re sults) [facility] ID Date Data Source [id number] 05/19/2021 07:10:00 PM EDT [facility] Name Value Range Interpretation Code Description Data Kamila rce(s) Supporting Document(s) Respiratory specimen severe acute respir atory syndrome coronavirus 2 (SARS-CoV-2) RNA Negative (qualifier value) [facility] This lab was ordered by [facility] miah and reported by [facility]. ID Date Data Source [id number] 05/19/2021 07:55:00 PM EDT [facility] Negative results should be treated as [...] Certificate of Accreditation. Factsheets for healthcare providers: https://www.fda.gov/media/322953/download Factsheets for patients: https://www.fda.gov/media/526761/download The ID NOW Instrument is a rapid molecular in vitro diagnostic test utilizing an isothermal nucleic acid amplification technology intended for the qualitative detection of nucleic acid from the SARS-CoV-2 viral RNA. THIS IS A STATE REPORTABLE COMMUNICABLE DISEASE. Manual entry verified by Itzel Lowe 05/19/211953 Test Performed By: [facility] [address] [place] [address] Director: Colleen Rudolph MD Name Value Range Interpretation Code Description Data Kamila rce(s) Supporting Document(s) ID Date Data Source [id number] 04/10/2021 08:11:00 AM EDT [facility] Name Value Range Interpretation Code Description Data Kamila rce(s) Supporting Document(s) SARS-CoV-2 (COVID 19) NEGATIVE - SARS-CoV-2 (COVID19) [facility] This lab was ordered by [facility] a nd reported by [facility]. ID Date Data Source [id number] 01/30/2021 10:45:00 AM EST [facility] Name Value Range Interpretation Code Description Data Kamila rce(s) Supporting Document(s) SARS coronavirus 2 RNA Not Detected [facility] This lab was ordered by [facility] and reported by [facility]. ID Date Data Source [id number] 01/19/2021 12:24:00 PM EST [facility] Name Value Range Interpretation Code Description Data Kamila rce(s) Supporting Document(s) SARS-CoV-2 (COVID-19) RNA [Presence] in Respiratory specimen by JOANNA with probe detection Not Detected [facility] This lab was ordered by [facility] and reported by [facility]. ID Date Data Source [id number] 11/24/2020 08:51:00 AM EST [facility] Name Value Range Interpretation Code Description Data Kamila rce(s) Supporting Document(s) SARS coronavirus 2 RNA [facility] This lab was ordered by [facility] and reported by [facility]. Procedure Social History Code Duration Value Status Description Data Source(s ) Smoking 06/15/2021 12:00:00 AM EDT Current Smoker completed Curre nt Smoker eCW1 ([facility]) Smoking 06/15/2021 12:00:00 AM EDT Current Smoker completed Curre nt Smoker eCW1 ([facility]) Vital Signs ID Date Data Source UNK Name Value Range Interpretation Code Description Data Source(s) Body weight 185 [lb_av] 185 [lb_av] eCW1 ([facility]) Body height 67 [in_i] 67 [in_i] eCW1 ([facility]) Body mass index (BMI) [Ratio] 28.97 kg/m2 28.97 kg/m2 eCW1 ([facility]) Heart rate 76 /min 76 /min eCW1 ([facility]) Respiratory rate 18 /min 18 /min eCW1 ([facility]) Body temperature 97.6 [degF] 97.6 [degF] eCW1 ( [facility]) Systolic blood pressure 144 mm[Hg] 144 mm[Hg] e CW1 ([facility]) Diastolic blood pressure 78 mm[Hg] 78 mm[Hg] eCW1 ([facility]) ID Date Data Source [id number] 06/15/2021 07:40:00 AM EDT [facility] Name Value Range Interpretation Code Description Data Source(s) Weight Measurement Method 7 7 [facility] Weight (Calculated Kilograms) 81.19 81.19 [facility] Weight 2864 2864 [facility] Temperature Source 7 7 [facility] Temperature 97.2 97.2 [facility] Respiratory Effort 1 1 [facility] Respiratory Rate 16 16 [facility] Pulse Assessment Method 4 4 [facility] Pulse Rate 75 75 [facility] Height (Calculated Centimeters) 172.72 172. 72 [facility] Height 68 68 [facility] Blood Pressure 134/83 134/83 [facility] Body Mass Index (BMI) 27.2 27.2 [facility] Weight Measurement Method 7 7 [facility] Weight (Calculated Kilograms) 81.19 81.19 [facility] Weight 2864 2864 [facility] Temperature Source 7 7 [facility] Temperature 97.2 97.2 [facility] Respiratory Effort 1 1 [facility] Respiratory Rate 16 16 [facility] Pulse Assessment Method 4 4 [facility] Pulse Rate 75 75 [facility] Height (Calculated Centimeters) 172.72 172. 72 [facility] Height 68 68 [facility] Blood Pressure 134/83 134/83 [facility] Body Mass Index (BMI) 27.2 27.2 [facility] Weight (Calculated Kilograms) 88.45 88.45 [facility] Height (Calculated Centimeters) 175.26 175. 26 [facility] Body Mass Index (BMI) 28.8 28.8 [facility]
--- NOTE | 2021-10-10 10:31 | REP ---
INDICATION: fasciitis COMPARISON: None. TECHNIQUE: AP and lateral views left humerus FINDINGS: The osseous structures and joint spaces are intact and normal. There is no evidence for acute fracture or dislocation. Surrounding soft tissues are unremarkable. No subcutaneous emphysema. Small surgical clips identified overlying the visualized proximal forearm. IMPRESSION: No obvious acute osseous abnormality. <Electronically signed by Alistair Huff > 10/10/21 [id number]
[2021-10-10] MEDS: HYDROMORPHONE HCL 0.5 MG/ 0.5 ML SYRINGE (J1170 PER 1) IV PRN ×2 (10:36→12:10)
[2021-10-10 11:00] LABS: RSV AMPLIFICATION NEGATIVE (NEGATIVE)
[2021-10-10 11:07] LABS: BASO # 0.1 10^3/uL (0.0-0.2); BASO % 0.6 % (0.0-1.0); EOS # 0.2 10^3/uL (0.0-0.5); EOS % 1.8 % (0.0-3.0); HEMATOCRIT 39.7 % (42.0-52.0); HEMOGLOBIN 13.2 g/dl (13.5-17.5); LYMPH # 1.7 10^3/uL (1.5-5.0); LYMPH % 13.8 % (24.0-44.0); MEAN CORPUSCULAR HEMOGLOBIN 30.8 pg (27.0-33.0); MEAN CORPUSCULAR HGB CONC 33.2 g/dl (32.0-36.5); MEAN CORPUSCULAR VOLUME 92.8 fl (80.0-96.0); MONO # 0.4 10^3/uL (0.0-0.8); MONO % 3.4 % (2.0-8.0); NEUTROPHILS # 9.5 10^3/uL (1.5-8.5); PLATELET COUNT, AUTOMATED 593 10^3/uL (150-450); RED BLOOD COUNT 4.28 10^6/uL (4.30-6.10)
--- NOTE | 2021-10-10 11:25 | REP ---
INDICATION: pain, postop, swelling COMPARISON: None. TECHNIQUE: Wylie scale and color Doppler evaluation using linear high frequency transducer. FINDINGS: Ultrasound examination of the left upper extremity venous structures including subclavian, axillary, limited jugular, brachial, cephalic and basilic veins demonstrate normal compressibility, flow and wave patterns. There is no evidence for deep venous thrombosis. Contralateral subclavian vein is patent and normal. IMPRESSION: No evidence for deep venous thrombosis. <Electronically signed by Alistair Huff > 10/10/21 [id number]
--- OUTSIDE RECORDS SUMMARY | 2021-10-10 11:27 | CCD ---
Author Author [facility] Organization [facility] Address Unknown Phone Unavailable Care Team Providers Care Stopper Maker Name Role Phone PAULA MARTIN MD Unavailable [...] is protected by Article 27-F of the [facility] Public Health law. If you continue you may have access to information: Regarding HIV / AIDS; Provided by facilities licensed or operated by the [facility] Office of Mental Health; or Provided by the [facility] Office for People With Developmental Disabilities. If such information is present, then the following [facility] mandated warning applies: This information has [...] law may result in a fine or care home sentence or both. A general authorization for the release of medical or other information is NOT sufficient authorization for further disc losure. Allergies and Adverse Reactions Type Description Substance Reaction Status Data Source(s ) Drug allergy Drug allergy No Known Allergies [facility] Family History Family Member Name Family Member Gender Family Member Status Date o f Status Description Data Source(s) Unknown Unknown Encounters Encounter Providers Location Date Indications Data Source(s ) Outpatient 08/09/2021 02:40:19 PM EDT [facility] ([facility]) Outpatient Attender: Yefri Pabon PA-C 08/09/2021 02:39:46 PM EDT - 08/09/2021 04:26:50 PM EDT [facility] ([facility]) Outpatient 08/09/2021 01:56:10 PM EDT [facility] ([facility]) [place] [address] [address] 06/15/2021 12:00:00 AM EDT eCW1 ([facility]) [place] [address] [address] 06/15/2021 12:00:00 AM EDT eCW1 ([facility]) Inpatient Attender: Paula Murillo nder: PAULA MARTIN MDAdmitter: PAULA MARTIN MD [facility]PS[facility]RE[facility] 05/19/2021 07:01:00 PM EDT - 05/20/2021 11:05:00 AM EDT PSYCHOACTIVE SUBSTANCE DEPENDENCE [facility] PSYCHOACTIVE SUBSTANCE DEPENDENCE Patient discharged. Immunizations Vaccine Date Status Description Data Source(s) Moderna #2 dose COVID-19(given elsewhere) SARSCOV2 VAC 100MCG/0.5ML IM 03/13/2021 03:12:00 PM EDT completed eCW1 ([facility]) Moderna #2 dose COVID-19(given elsewhere) SARSCOV2 VAC 100MCG/0.5ML IM 03/13/2021 03:12:00 PM EDT completed eCW1 ([facility]) COVID-19 VACCINE Moderna 03/13/2021 12:00:00 AM EDT completed [facility] Vaccine Series Complete: YESThis Data wa s Submitted to [facility] Via [facility]. Moderna #1 dose COVID-19(given elsewhere) SARSCOV2 VAC 100MCG/0.5ML IM 02/10/2021 03:11:00 PM EDT completed eCW1 ([facility]) Moderna #1 dose COVID-19(given elsewhere) SARSCOV2 VAC 100MCG/0.5ML IM 02/10/2021 03:11:00 PM EDT completed eCW1 ([facility]) COVID-19 VACCINE Moderna 02/10/2021 12:00:00 AM EDT completed [facility] Vaccine Series Complete: NOThis Data was Submitted to [facility] Via Mad Mimi. Medications Medication Brand Name Start Date Product [...] type / Coverage type Policy ID Covered libertarian ID Covered libertarian's relationship to carlos Policy Carlos Plan Information MEDICAID M [id number] Self [id number] MEDICARE [id number] SP [id number] A MEDICARE [id number] SP [id number] A MEDICAID [id number] SP [id number] [facility] Medicare Medicare Part B [id number] Self [id number] Medicaid Medicaid [id number] Self [id number] MEDICARE [id number] SP [id number] [place]ED[place] [id number] SP [id number] MEDICARE C [id number] S [id number] MEDICAID M [id number] S [id number] MEDICAID [id number] SP [id number] MEDICARE [id number] SP [id number] MEDICARE [id number] SP [id number] A Medicare Natl Gov't Servi Medicare Primary [id number] Self MEDICAID - O/P EMERGENCY ROOM [id number] 18 [id number] MEDICARE PART A -O/P [id number] 18 [id number] SELF PAY UNAVAILABLE SP UNAVAILA BLE OTHER WORKERS COMPENSATION [id number] SP [id number] MEDICAID - CLINIC [id number] MEDICAID-PHYSICIAN [id number] E [id number] MEDICAID-O/P RAD ONLY [id number] 18 [id number] MEDICAID-O/P [id number] 18 [id number] T [facility] MEDICAID [id number] SP [id number] T [id number] MEDICARE [id number] SP [id number] A [facility] [id number] SP [id number] MEDICAID [id number] Unemployed [id number] MEDICARE [id number] Unemployed [id number] SELF PAY ONLY [id number] Problems, Conditions, and Diagnoses Code Display Name Description Problem Type Effective Dates Data Source(s) J44.9 Chronic obstructive pulmonary disease, u nspecified CHRONIC OBSTRUCTIVE PULMONARY DISEASE, UNSPECIFIED Diagnosis 05/19/2021 07:01:00 PM EDT [facility] Z53.29 Procedure and treatment not carried out because of patient's decision for other reasons PROC/TRTMT NOT CRD OUT BEC PT DECISION FOR OTH REASONS Diagn osis 05/19/2021 07:01:00 PM EDT [facility] F17.210 Nicotine dependence, cigarettes, uncompl icated NICOTINE DEPENDENCE, CIGARETTES, UNCOMPLICATED Diagnosis 05/19/2021 07:01:00 PM EDT [facility] F12.20 Cannabis dependence, uncomplicated CANNABIS DEPE NDENCE, UNCOMPLICATED Diagnosis 05/19/2021 07:01:00 PM EDT [facility] F11.20 Opioid dependence, uncomplicated OPIOID DEPENDEN CE, UNCOMPLICATED Diagnosis 05/19/2021 07:01:00 PM EDT [facility] F11.21 [id number] Opioid dependence in remission Problem 06/15/2021 12:00:00 AM EDT eCW1 ([facility]) B19.20 [id number] Hepatitis C virus in fection without hepatic coma, unspecified chronicity Problem 06/15/2021 12:00:00 AM EDT eCW1 ([facility]) Surgeries/Procedures No Information Results ID Date Data Source [id number] 09/30/2021 08:39:00 AM EDT [facility] Name Value Range Interpretation Code Description Data Kamila rce(s) Supporting Document(s) SARS coronavirus 2 RNA [Presence] in Res piratory specimen by JOANNA with probe detection NEGATIVE [facility] This lab was ordered by [facility] a nd reported by [facility]. ID Date Data Source [id number] 08/09/2021 03:00:00 PM EDT [facility] Name Value Range Interpretation Code Description Data Kamila rce(s) Supporting Document(s) SARS-CoV-2 RNA Resp Ql JOANNA+probe NOT DETECTED [facility] This lab was ordered by [facility] and reported by [facility]. ID Date Data Source [id number] 05/24/2021 11:16:00 PM EDT [facility] Name Value Range Interpretation Code Description Data Kamila rce(s) Supporting Document(s) Cannabinoids Confirm,Ur result . Very abnor mal (applies to non-numeric units [facility] Carboxy THC GC/MS Conf 22 ng/mL Cutoff=10 01 Performed at: [facility] [address] [id number] Sales Expert: Yanira Cox MD, Phone: [phone] ID Date Data Source [id number] 05/19/2021 09:03:00 PM EDT [facility] Name Value Range Interpretation Code Description Data Kamila rce(s) Supporting Document(s) Opiate Screen,Urine Negative Normal (applies to non-nume candy results) [facility] Amphetamine Screen,Urine Negative Normal (applies to non -numeric results) [facility] Benzodiazepines Scrn,Ur result Negative N ormal (applies to non-numeric results) [facility] Cocaine Screen,Urine Negative Normal (applies to non-num lucas results) [facility] Methadone Screen,Urine Negative Normal (applies to non-n umeric results) [facility] Cannabinoid Screen, Ur Negative [place] [facility] Therapeutic Drug Ranges for Emergency an d Rehabilitation Threshold Levels (ng/mL) Cocaine 300 Opiates 300 Cannabinoids 50 Barbiturates 200 Benzodiazepine 200 Methadone 300 Amphetamines 1000 All positive findings are presumptive and unconfirmed. Confirmation of positive results are performed only at request of provider. Unconfirmed results must not be used for non-medical purposes (i.e. pre-employment and legal purposes) ID Date Data Source [id number] 05/19/2021 08:48:00 PM EDT [facility] Name Value Range Interpretation Code Description Data Kamila rce(s) Supporting Document(s) Color,Urine Yellow Normal (applies to non-numeric resu lts) [facility] Clarity,Urine Clear Normal (applies to non-numeric re sults) [facility] Specific [place],Urine 1.001-1.030 Normal (applies to non- numeric results) [facility] PH,Urine 5.0-8.0 Normal (applies to non-numeric resul ts) [facility] Protein,Urine Negative Normal (applies to non-numeric re sults) [facility] Glucose,Urine (UA) Negative Normal (applies to non-numer ic results) [facility] Ketones,Urine Negative Normal (applies to non-numeric re sults) [facility] Blood,Urine Negative Normal (applies to non-numeric resu lts) [facility] Bilirubin,Urine Negative Normal (applies to non-numeric results) [facility] Urobilinogen,Urine Norm 0.2-1 Normal (applies to non-numer ic results) [facility] Leukocyte Esterase,Urine Negative Normal (applies to non -numeric results) [facility] Nitrite,Urine Negative Normal (applies to non-numeric re sults) [facility] ID Date Data Source [id number] 05/19/2021 07:10:00 PM EDT [facility] Name Value Range Interpretation Code Description Data Kamila rce(s) Supporting Document(s) Respiratory specimen severe acute respir atory syndrome coronavirus 2 (SARS-CoV-2) RNA Negative (qualifier value) [facility] This lab was ordered by [facility] miah and reported by [facility]. ID Date Data Source [id number] 05/19/2021 07:55:00 PM EDT [facility] Negative results should be treated as pr [...] Certificate of Accreditation. Factsheets for healthcare providers: https://www.fda.gov/media/252725/download Factsheets for patients: https://www.fda.gov/media/377734/download The ID NOW Instrument is a rapid molecular in vitro diagnostic test utilizing an isothermal nucleic acid amplification technology intended for the qualitative detection of nucleic acid from the SARS-CoV-2 viral RNA. THIS IS A STATE REPORTABLE COMMUNICABLE DISEASE. Manual entry verified by Itzel Lowe 05/19/211953 Test Performed By: [facility] [address] [place] [address] Director: Colleen Rudolph MD Name Value Range Interpretation Code Description Data Kamila rce(s) Supporting Document(s) ID Date Data Source [id number] 04/10/2021 08:11:00 AM EDT [facility] Name Value Range Interpretation Code Description Data Kamila rce(s) Supporting Document(s) SARS-CoV-2 (COVID 19) NEGATIVE - SARS-CoV-2 (COVID19) [facility] This lab was ordered by [facility] a nd reported by [facility]. ID Date Data Source [id number] 01/30/2021 10:45:00 AM EST [facility] Name Value Range Interpretation Code Description Data Kamila rce(s) Supporting Document(s) SARS coronavirus 2 RNA Not Detected [facility] This lab was ordered by [facility] and reported by [facility]. ID Date Data Source [id number] 01/19/2021 12:24:00 PM EST [facility] Name Value Range Interpretation Code Description Data Kamila rce(s) Supporting Document(s) SARS-CoV-2 (COVID-19) RNA [Presence] in Respiratory specimen by JOANNA with probe detection Not Detected [facility] This lab was ordered by [facility] and reported by [employer]. ID Date Data Source [id number] 11/24/2020 08:51:00 AM EST [facility] Name Value Range Interpretation Code Description Data Kamila rce(s) Supporting Document(s) SARS coronavirus 2 RNA [facility] This lab was ordered by [facility] and reported by [facility]. Procedure Social History Code Duration Value Status Description Data Source(s ) Smoking 06/15/2021 12:00:00 AM EDT Current Smoker completed Curre nt Smoker eCW1 ([facility]) Smoking 06/15/2021 12:00:00 AM EDT Current Smoker completed Curre nt Smoker eCW1 ([facility]) Vital Signs ID Date Data Source UNK Name Value Range Interpretation Code Description Data Source(s) Body weight 185 [lb_av] 185 [lb_av] eCW1 ([facility]) Body height 67 [in_i] 67 [in_i] eCW1 ([facility]) Body mass index (BMI) [Ratio] 28.97 kg/m2 28.97 kg/m2 eCW1 ([facility]) Heart rate 76 /min 76 /min eCW1 ([facility]) Respiratory rate 18 /min 18 /min eCW1 ([facility]) Body temperature 97.6 [degF] 97.6 [degF] eCW1 ( [facility]) Systolic blood pressure 144 mm[Hg] 144 mm[Hg] e CW1 ([facility]) Diastolic blood pressure 78 mm[Hg] 78 mm[Hg] eCW1 ([facility]) ID Date Data Source [id number] 06/15/2021 07:40:[address] [facility] Name Value Range Interpretation Code Description Data Source(s) Weight Measurement Method 7 7 [facility] Weight (Calculated Kilograms) 81.19 81.19 [facility] Weight 2864 2864 [facility] Temperature Source 7 7 [facility] Temperature 97.[address] [facility] Respiratory Effort 1 1 [facility] Respiratory Rate 16 16 [facility] Pulse Assessment Method 4 4 [facility] Pulse Rate 75 75 [facility] Height (Calculated Centimeters) 172.72 172. 72 [facility] Height 68 68 [facility] Blood Pressure 134/83 134/83 [facility] Body Mass Index (BMI) 27.2 27.2 [facility] Weight Measurement Method 7 7 [facility] Weight (Calculated Kilograms) 81.19 81.19 [facility] Weight 2864 2864 [facility] Temperature Source 7 7 [facility] Temperature 97.[address] [facility] Respiratory Effort 1 1 [facility] Respiratory Rate 16 16 [facility] Pulse Assessment Method 4 4 [facility] Pulse Rate 75 75 [facility] Height (Calculated Centimeters) 172.72 172. 72 [facility] Height 68 68 [facility] Blood Pressure 134/83 134/83 [facility] Body Mass Index (BMI) 27.2 27.2 [facility] Weight (Calculated Kilograms) 88.45 88.45 [facility] Height (Calculated Centimeters) 175.26 175. 26 [facility] Body Mass Index (BMI) 28.8 28.8 [facility]
[2021-10-10 11:30] LABS: ALBUMIN 3.4 GM/DL (3.2-5.2); ALT/SGPT 42 U/L (12-78); BILIRUBIN,TOTAL 0.2 MG/DL (0.2-1.0); BLOOD UREA NITROGEN 13 MG/DL (7-18); CALCIUM LEVEL 9.6 MG/DL (8.5-10.1); CARBON DIOXIDE LEVEL 28 MEQ/L (21-32); CHLORIDE LEVEL 105 MEQ/L (98-107); CREATININE FOR GFR 0.73 MG/DL (0.70-1.30); GLOMERULAR FILTRATION RATE > 60.0 (>56); GLUCOSE, FASTING 101 MG/DL (70-100); POTASSIUM SERUM 5.2 MEQ/L (3.5-5.1); SODIUM LEVEL 138 MEQ/L (136-145); TOTAL PROTEIN 7.4 GM/DL (6.4-8.2)
[2021-10-10] MEDS ORDERED: PIPERACILLIN/TAZOBACTAM SOD 3.375 GM in D5W MINI-BAG PLUS 50 ML IV ONE (11:35)
[2021-10-10] MEDS ORDERED: ISOVUE-370 76% 100ML VIAL As Ordered ONE (11:40)
[2021-10-10 12:09] LABS: ERYTHROCYTE SEDIMENTATION RATE 36 mm/hr (0-20)
--- NOTE | 2021-10-10 12:16 | REP ---
INDICATION: pain,swelling, recent surgery. COMPARISON: None. TECHNIQUE: CT angiography for the evaluation of the left upper extremity using 100 cc Isovue 370 intravenous contrast material with post processing technique to create 3D volume rendered angiographic images along with coronal and sagittal MIP reformations. This CT examination was performed using the following dose reduction techniques: Automated exposure control, adjustment of mA and/or kv according to the patient's size, and use of iterative reconstruction technique. FINDINGS: Satisfactory arterial enhancement of the left upper extremity demonstrates normal appearance of the thoracic aortic arch, left subclavian, axillary, brachial, radial and ulnar arteries along with small branch vessels. There is no evidence for left upper extremity arterial occlusion or stenosis and no significant atherosclerotic changes appreciated. The visualized osseous structures appear intact and essentially age-appropriate/normal. Musculature is grossly unremarkable. Small presumed surgical clips are identified at the level of the forearm. No evidence for mass, fluid collection, or abscess appreciated. IMPRESSION: Essentially normal examination of the left upper extremity arterial system. No acute abnormality in the surrounding musculoskeletal structures identified. <Electronically signed by Alistair Huff > 10/10/21 [id number]
[2021-10-10] MEDS ORDERED: HOME MED LIST COMPLETE! XX SCH (13:00)
[2021-10-10] MEDS ORDERED: DOCUSATE SODIUM 100MG CAPSULE PO PRN (13:35)
[2021-10-10] MEDS ORDERED: ACETAMINOPHEN TAB 650MG DOSE (2X325MG) PO PRN (13:50)
--- OUTSIDE RECORDS SUMMARY | 2021-10-10 13:53 | CCD ---
Author Author [facility] Organization [facility] Address Unknown Phone Unavailable Care Team Providers Care Contracts Paralegal Name Role Phone PAULA MARTIN MD Unavailable Unavailable PAULA MARTIN MD Unavailable Unavailable PAULA MARTIN MD Unavailable Unavailable PAULA MARTIN MD Unavailable Unavailable PAULA MARTIN MD Unavailable Unavailable PAULA MARTIN MD Unavailable Unavailable APULA MARTIN MD Unavailable Unavailable Yesenia Martin MD [...] is protected by Article 27-F of the [facility] Public Health law. If you continue you may have access to information: Regarding HIV / AIDS; Provided by facilities licensed or operated by the [facility] Office of Mental Health; or Provided by the [facility] Office for People With Developmental Disabilities. If such information is present, then the following [facility] mandated warning applies: This information has [...] law may result in a fine or prison sentence or both. A general authorization for the release of medical or other information is NOT sufficient authorization for further disc losure. Allergies and Adverse Reactions Type Description Substance Reaction Status Data Source(s ) Drug allergy Drug allergy No Known Allergies [facility] Family History Family Member Name Family Member Gender Family Member Status Date o f Status Description Data Source(s) Unknown Unknown Encounters Encounter Providers Location Date Indications Data Source(s ) Outpatient 08/09/2021 02:40:19 PM EDT [facility] ([facility]) Outpatient Attender: Yefri Pabon PA-C 08/09/2021 02:39:46 PM EDT - 08/09/2021 04:26:50 PM EDT [facility] ([facility]) Outpatient 08/09/2021 01:56:10 PM EDT [facility] ([facility]) [place] [address] [address] 06/15/2021 12:00:00 AM EDT eCW1 ([facility]) [place] [address] [address] 06/15/2021 12:00:00 AM EDT eCW1 ([facility]) Inpatient Attender: Paula Murillo nder: PAULA MARTIN MDAdmitter: PAULA MARTIN MD [facility]PS[facility]RE[facility] 05/19/2021 07:01:00 PM EDT - 05/20/2021 11:05:00 AM EDT PSYCHOACTIVE SUBSTANCE DEPENDENCE [facility] PSYCHOACTIVE SUBSTANCE DEPENDENCE Patient discharged. Immunizations Vaccine Date Status Description Data Source(s) Moderna #2 dose COVID-19(given elsewhere) SARSCOV2 VAC 100MCG/0.5ML IM 03/13/2021 03:12:00 PM EDT completed eCW1 ([facility]) Moderna #2 dose COVID-19(given elsewhere) SARSCOV2 VAC 100MCG/0.5ML IM 03/13/2021 03:12:00 PM EDT completed eCW1 ([facility]) COVID-19 VACCINE Moderna 03/13/2021 12:00:00 AM EDT completed [facility] Vaccine Series Complete: YESThis Data wa s Submitted to [facility] Via [facility]. Moderna #1 dose COVID-19(given elsewhere) SARSCOV2 VAC 100MCG/0.5ML IM 02/10/2021 03:11:00 PM EDT completed eCW1 ([facility]) Moderna #1 dose COVID-19(given elsewhere) SARSCOV2 VAC 100MCG/0.5ML IM 02/10/2021 03:11:00 PM EDT completed eCW1 ([facility]) COVID-19 VACCINE Moderna 02/10/2021 12:00:00 AM EDT completed [facility] Vaccine Series Complete: NOThis Data was Submitted to [facility] Via [employer]. Medications Medication Brand Name Start Date Product [...] carlos Policy Carlos Plan Information MEDICAID M [id number] Self [id number] MEDICARE [id number] SP [id number] A MEDICARE [id number] SP [id number] A MEDICAID [id number] SP [id number] [facility] Medicare Medicare Part B [id number] Self [id number] Medicaid Medicaid [id number] Self [id number] MEDICARE [id number] SP [id number] [place] [id number] SP [id number] MEDICARE C [id number] S [id number] MEDICAID M [id number] S [id number] MEDICAID [id number] SP [id number] MEDICARE [id number] SP [id number] MEDICARE [id number] SP [id number] A Medicare Natl Gov't Servi Medicare Primary [id number] Self MEDICAID - O/P EMERGENCY ROOM [id number] 18 [id number] MEDICARE PART A -O/P [id number] 18 [id number] SELF PAY UNAVAILABLE SP UNAVAILA BLE OTHER WORKERS COMPENSATION [id number] SP [id number] MEDICAID - CLINIC [id number] EV [id number] MEDICAID-PHYSICIAN [id number] 18 E [id number] MEDICAID-O/P RAD ONLY [id number] MEDICAID-O/P [id number] 18 [id number] T [facility] MEDICAID [id number] SP [id number] T [id number] MEDICARE [id number] SP [id number] A [facility] [id number] SP [id number] MEDICAID [id number] Unemployed [id number] MEDICARE [id number] Unemployed [id number] SELF PAY ONLY [id number] Problems, Conditions, and Diagnoses Code Display Name Description Problem Type Effective Dates Data Source(s) J44.9 Chronic obstructive pulmonary disease, u nspecified CHRONIC OBSTRUCTIVE PULMONARY DISEASE, UNSPECIFIED Diagnosis 05/19/2021 07:01:00 PM EDT [facility] Z53.29 Procedure and treatment not carried out because of patient's decision for other reasons PROC/TRTMT NOT CRD OUT BEC PT DECISION FOR OTH REASONS Diagn osis 05/19/2021 07:01:00 PM EDT [facility] F17.210 Nicotine dependence, cigarettes, uncompl icated NICOTINE DEPENDENCE, CIGARETTES, UNCOMPLICATED Diagnosis 05/19/2021 07:01:00 PM EDT [facility] F12.20 Cannabis dependence, uncomplicated CANNABIS DEPE NDENCE, UNCOMPLICATED Diagnosis 05/19/2021 07:01:00 PM EDT [facility] F11.20 Opioid dependence, uncomplicated OPIOID DEPENDEN CE, UNCOMPLICATED Diagnosis 05/19/2021 07:01:00 PM EDT [facility] F11.21 [id number] Opioid dependence in remission Problem 06/15/2021 12:00:00 AM EDT eCW1 ([facility]) B19.20 [id number] Hepatitis C virus in fection without hepatic coma, unspecified chronicity Problem 06/15/2021 12:00:00 AM EDT eCW1 ([facility]) Surgeries/Procedures No Information Results ID Date Data Source [id number] 09/30/2021 08:39:00 AM EDT [facility] Name Value Range Interpretation Code Description Data Kamila rce(s) Supporting Document(s) SARS coronavirus 2 RNA [Presence] in Res piratory specimen by JOANNA with probe detection NEGATIVE [facility] This lab was ordered by [facility] a nd reported by [facility]. ID Date Data Source [id number] 08/09/2021 03:00:00 PM EDT [facility] Name Value Range Interpretation Code Description Data Kamila rce(s) Supporting Document(s) SARS-CoV-2 RNA Resp Ql JOANNA+probe NOT DETECTED [facility] This lab was ordered by [facility] and reported by [facility]. ID Date Data Source [id number] 05/24/2021 11:16:00 PM EDT [facility] Name Value Range Interpretation Code Description Data Kamila rce(s) Supporting Document(s) Cannabinoids Confirm,Ur result . Very abnor mal (applies to non-numeric units [facility] Carboxy THC GC/MS Conf 22 ng/mL Cutoff=10 01 Performed at: [facility] [id number] Agricultural Agent: Yanira Cox MD, Phone: [phone] ID Date Data Source [id number] 05/19/2021 09:03:00 PM EDT [facility] Name Value Range Interpretation Code Description Data Kamila rce(s) Supporting Document(s) Opiate Screen,Urine Negative Normal (applies to non-nume candy results) [facility] Amphetamine Screen,Urine Negative Normal (applies to non -numeric results) [facility] Benzodiazepines Scrn,Ur result Negative N ormal (applies to non-numeric results) [facility] Cocaine Screen,Urine Negative Normal (applies to non-num lucas results) [facility] Methadone Screen,Urine Negative Normal (applies to non-n umeric results) [facility] Cannabinoid Screen, Ur Negative [place] [facility] Therapeutic Drug Ranges for Emergency an d Rehabilitation Threshold Levels (ng/mL) Cocaine 300 Opiates 300 Cannabinoids 50 Barbiturates 200 Benzodiazepine 200 Methadone 300 Amphetamines 1000 All positive findings are presumptive and unconfirmed. Confirmation of positive results are performed only at request of provider. Unconfirmed results must not be used for non-medical purposes (i.e. pre-employment and legal purposes) ID Date Data Source [id number] 05/19/2021 08:48:00 PM EDT [facility] Name Value Range Interpretation Code Description Data Kamila rce(s) Supporting Document(s) Color,Urine Yellow Normal (applies to non-numeric resu lts) [facility] Clarity,Urine Clear Normal (applies to non-numeric re sults) [facility] Specific [place],Urine 1.001-1.030 Normal (applies to non- numeric results) [facility] PH,Urine 5.0-8.0 Normal (applies to non-numeric resul ts) [facility] Protein,Urine Negative Normal (applies to non-numeric re sults) [facility] Glucose,Urine (UA) Negative Normal (applies to non-numer ic results) [facility] Ketones,Urine Negative Normal (applies to non-numeric re sults) [facility] Blood,Urine Negative Normal (applies to non-numeric resu lts) [facility] Bilirubin,Urine Negative Normal (applies to non-numeric results) [facility] Urobilinogen,Urine Norm 0.2-1 Normal (applies to non-numer ic results) [facility] Leukocyte Esterase,Urine Negative Normal (applies to non -numeric results) [facility] Nitrite,Urine Negative Normal (applies to non-numeric re sults) [facility] ID Date Data Source [id number] 05/19/2021 07:10:00 PM EDT [facility] Name Value Range Interpretation Code Description Data Kamila rce(s) Supporting Document(s) Respiratory specimen severe acute respir atory syndrome coronavirus 2 (SARS-CoV-2) RNA Negative (qualifier value) [facility] This lab was ordered by [facility] miah and reported by [facility]. ID Date Data Source [id number] 05/19/2021 07:55:00 PM EDT [facility] Negative results should be treated as pr [...] Certificate of Accreditation. Factsheets for healthcare providers: https://www.fda.gov/media/399223/download Factsheets for patients: https://www.fda.gov/media/171293/download The ID NOW Instrument is a rapid molecular in vitro diagnostic test utilizing an isothermal nucleic acid amplification technology intended for the qualitative detection of nucleic acid from the SARS-CoV-2 viral RNA. THIS IS A STATE REPORTABLE COMMUNICABLE DISEASE. Manual entry verified by Itzel Lowe 05/19/211953 Test Performed By: [facility] [address] [place] [address] Director: Colleen Rudolph MD Name Value Range Interpretation Code Description Data Kamila rce(s) Supporting Document(s) ID Date Data Source [id number] 04/10/2021 08:11:00 AM EDT [facility] Name Value Range Interpretation Code Description Data Kamila rce(s) Supporting Document(s) SARS-CoV-2 (COVID 19) NEGATIVE - SARS-CoV-2 (COVID19) [facility] This lab was ordered by [facility] a nd reported by [facility]. ID Date Data Source [id number] 01/30/2021 10:45:00 AM EST [facility] Name Value Range Interpretation Code Description Data Kamila rce(s) Supporting Document(s) SARS coronavirus 2 RNA Not Detected [facility] This lab was ordered by [facility] and reported by [facility]. ID Date Data Source [id number] 01/19/2021 12:24:00 PM EST [facility] Name Value Range Interpretation Code Description Data Kamila rce(s) Supporting Document(s) SARS-CoV-2 (COVID-19) RNA [Presence] in Respiratory specimen by JOANNA with probe detection Not Detected [facility] This lab was ordered by [facility] and reported by [employer]. ID Date Data Source [id number] 11/24/2020 08:51:00 AM EST [facility] Name Value Range Interpretation Code Description Data Kamila rce(s) Supporting Document(s) SARS coronavirus 2 RNA [facility] This lab was ordered by [facility] and reported by [facility]. Procedure Social History Code Duration Value Status Description Data Source(s ) Smoking 06/15/2021 12:00:00 AM EDT Current Smoker completed Curre nt Smoker eCW1 ([facility]) Smoking 06/15/2021 12:00:00 AM EDT Current Smoker completed Curre nt Smoker eCW1 ([facility]) Vital Signs ID Date Data Source UNK Name Value Range Interpretation Code Description Data Source(s) Body weight 185 [lb_av] 185 [lb_av] [facility] Body height 67 [in_i] 67 [in_i] eCW1 ([facility]) Body mass index (BMI) [Ratio] 28.97 kg/m2 28.97 kg/m2 eCW1 ([facility]) Heart rate 76 /min 76 /min eCW1 ([facility]) Respiratory rate 18 /min 18 /min eCW1 ([facility]) Body temperature 97.6 [degF] 97.6 [degF] eCW1 ( [facility]) Systolic blood pressure 144 mm[Hg] 144 mm[Hg] e CW1 ([facility]) Diastolic blood pressure 78 mm[Hg] 78 mm[Hg] eCW1 ([facility]) ID Date Data Source [id number] 06/15/2021 07:40:[address] [facility] Name Value Range Interpretation Code Description Data Source(s) Weight Measurement Method 7 7 [facility] Weight (Calculated Kilograms) 81.19 81.19 [facility] Weight 2864 2864 [facility] Temperature Source 7 7 [facility] Temperature 97.[address] [facility] Respiratory Effort 1 1 [facility] Respiratory Rate 16 16 [facility] Pulse Assessment Method 4 4 [facility] Pulse Rate 75 75 [facility] Height (Calculated Centimeters) 172.72 172. 72 [facility] Height 68 68 [facility] Blood Pressure 134/83 134/83 [facility] Body Mass Index (BMI) 27.2 27.2 [facility] Weight Measurement Method 7 7 [facility] Weight (Calculated Kilograms) 81.19 81.19 [facility] Weight 2864 2864 [facility] Temperature Source 7 7 [facility] Temperature 97.[address] [facility] Respiratory Effort 1 1 [facility] Respiratory Rate 16 16 [facility] Pulse Assessment Method 4 4 [facility] Pulse Rate 75 75 [facility] Height (Calculated Centimeters) 172.72 172. 72 [facility] Height 68 68 [facility] Blood Pressure 134/83 134/83 [facility] Body Mass Index (BMI) 27.2 27.2 [facility] Weight (Calculated Kilograms) 88.45 88.45 [facility] Height (Calculated Centimeters) 175.26 175. 26 [facility] Body Mass Index (BMI) 28.8 28.8 [facility]
[2021-10-10] MEDS ORDERED: LORazepam 2 MG TAB PO PRN (13:55)
[2021-10-10] MEDS: KETOROLAC 30 MG/ML 1ML VIAL IV PRN (14:42)
[2021-10-10] MEDS: FOLIC ACID 1 MG TAB PO SCH (14:43)
[2021-10-10] MEDS: THIAMINE 100 MG TAB PO SCH ×2 (14:43→21:36)
[2021-10-10] MEDS: NS 1,000 ML IV SCH (14:45)
--- NOTE | 2021-10-10 14:50 | HPEPDOC ---
[facility] Medical History & Physical Date of Admission Oct 10, 2021 Date of Service: Oct 10, 2021 Attending Physician: ANICETO VÁZQUEZ MD History and Physical CHIEF COMPLAINT: Monique Waggoner is a 55 year old male with PMHx of nec fasc is presenting to the ED with left arm pain. He had a left ulnar incision and debridement performed on 10/05/2021 and was sent home 10/08/2021 on Augmentin. HISTORY OF PRESENT ILLNESS: On 10/09 he noticed increased swelling and pain in his arm since last hospital discharge and describes it as being "3x larger than my right". Patient describes accompanying chills, dizziness, and nausea since he's been home and in the ED. Patient says movement and touching the arm exacerbates the pain and medication helps. Patient also denies loss of appetite, nausea and vomiting, no diarrhea or constipation or abdominal pain. no SOB, chest pain or discomfort. Patient denies dysuria, difficulty urinating, hematuria, and hematochezia. PAST MEDICAL HISTORY: 1. Hep C. treated by Dr. Ellison 2. Opioid use disorder 3. alcohol use disorder 4. Left UE necrotizing fasciitis PAST SURGICAL HISTORY: 1. Left Ulnar I and D 10/05/2021 2. Right femur knee replacement 3. Left toe amputation 4. 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 REVIEW OF SYSTEMS: 10 point review of systems negative aside from positive findings in HPI HOME MEDICATIONS: Please see below. PHYSICAL EXAMINATION: VITAL SIGNS: see below GENERAL APPEARANCE: In pain and uncomfortable HEENT: Normocephalic atraumatic, moist mucous membranes CARDIOVASCULAR: regular rate and rhythm, no murmurs LUNGS: CTA, no rales rhonchi or wheezing ABDOMEN: Positive bowel sounds, nontender and non-distended, no rebound or gaurding MUSCULOSKELETAL: Right arm 5/5 strength sensation intact. Left arm sensation intact, 4/5 strength. EXTREMITIES: Left arm swollen and erythematous. NEUROLOGICAL: Decreased rpg programmer analyst strength in left hand, difficulty with abduction of fingers. LABORATORY DATA: See below. IMAGING: - Right Humerus X-ray: Osseus structures/joints normal, No fracture or dislocation, Soft tissues unremarkable, No subq emphysema, surgical clips seen overlying visual forearm - Duplex US: Examined subclavian, axillary, limited jugular, brachial, and cephalic veins demonstrated normal wave/flow and compressibility. No evidence of a DVT, CL subclavian is patent + normal - CT angio UE left: no evidence of left UE arterial stenosis/ occlusion, no significant atherosclerotic changes noted. Musculature grossly unremarkable, oss eus structures intact + age appropriate. Surgical clips visualized. no abscess or fluid/mass seen. MICROBIOLOGY: Please see below. ASSESSMENT: Monique waggoner is a 55 year old male with a history of necrotizing fasciitis with cc of left arm pain, redness and swelling. Physical exam findings are suggestive of cellulitis. . PLAN: #. Cellulitis, left arm pain, swelling and erythema - Culture and sensitivities from prior admission reviewed - Treat with a course of IV Zosyn - Hydrate gently with 80 ml/hr - Manage pain with IV Toradol, switch to tramadol if needed - Consulted ID and Ortho for further recommendations - Blood cultures pending #. Mild Hyperkalemia of 5.2 - will be treated via hydration - repeat BMP #. Hx Hep.C - Was treated appropriately by Dr. Ellison - AST, ALT, and alk phos unremarkable #. Opioid use disorder - avoid opioid pain medications #. Tobacco - Will need to family and marriage counsellor on smoking cessation outpatient #. Alcohol abuse - c/w Thiamine, Folate, MVI - Will start CIWA protocol #. DVT prophylaxis - c/w Lovenox Vital Signs Vital Signs Date Time Temp Pulse Resp B/P (MAP) Pulse Ox O2 Delivery O2 Flow Rate FiO2 10/10/21 13:01 79 18 128/73 (91) 95 Room Air 10/10/21 09:22 97.0 Laboratory Data Labs 24H Laboratory Tests 2 10/10/21 09:59: Immature Granulocyte % (Auto) 1.4, Neutrophils (%) (Auto) 79.0H, Lymphocytes (%) (Auto) 13.8L, Monocytes (%) (Auto) 3.4, Eosinophils (%) (Auto) 1.8, Basophils (%) (Auto) 0.6, Neutrophils # (Auto) 9.5H, Lymphocytes # (Auto) 1.7, Monocytes # (Auto) 0.4, Eosinophils # (Auto) 0.2, Basophils # (Auto) 0.1, Nucleated Red Blood Cells % (auto) 0.0, Erythrocyte Sedimentation Rate 36H, Anion Gap 5L, Glomerular Filtration Rate > 60.0, Calcium Level 9.6#, Total Bilirubin 0.2, Aspartate Amino Transf (AST/SGOT) 31, Alanine Aminotransferase (ALT/SGPT) 42, Alkaline Phosphatase 70, C-Reactive Protein, Quantitative 1.40H, Total Protein 7.4, Albumin 3.4, Albumin/Globulin Ratio 0.9 10/10/21 10:15: Coronavirus (COVID-19)(PCR) NEGATIVE, Influenza Type A (RT-PCR) NEGATIVE, Influenza Type B (RT-PCR) NEGATIVE, Respiratory Syncytial Virus (PCR) NEGATIVE CBC/BMP Laboratory Tests 10/10/21 09:59 Microbiology Microbiology 10/10/21 Blood Culture, Received Pending 10/10/21 Blood Culture, Received Pending Home Medications Scheduled Amoxicillin/Potassium Clav (Augmentin 875-125 Tablet) 1 Each Tablet, 1 TAB PO BID Folic Acid (Folic Acid) 1 Mg Tablet, 1 MG PO DAILY Multivitamins (Thera M Plus Tablet) 1 Each Tablet, 1 TAB PO DAILY Nicotine (Nicotine Patch) 7 Mg Patch.td24, 1 PATCH TD DAILY Oxazepam (Oxazepam) 10 Mg Capsule, 10 MG PO as directed 1 tab every 6 hours x 1 day, then 1 tab every 8 hours x 1 day, then 1 tab every 12 hours x 1 day then stop Thiamine Hcl (Vitamin B-1) 100 Mg Tablet, 1 TAB PO DAILY Scheduled PRN Oxycodone HCl/Acetaminophen (Oxycodone-Acetaminophen 5-325) 1 Each Tablet, 1 TAB PO TIDP PRN for pain Allergies Coded Allergies: No Known Allergies (Unverified , 03/02/19) A-FIB/CHADSVASC A-FIB History Current/History of A-Fib/PAF?: No GME ATTESTATION GME ATTESTATION My faculty preceptor for this patient encounter was physically present during the encounter and was fully available. All aspects of the patient interview, examination, medical decision making process, and medical care plan development were reviewed and approved by the faculty preceptor. The faculty preceptor is aware and concurs with the plan as stated in the body of this note and will attest to such by his/her cosignature. ATTENDING NOTE I, Aniceto Vázquez, have independently examined this patient and performed my own physical exam, as well as reviewed the documentation and edited where necessary with the resident. For medical students we have performed the physical exam together and discussed medical decision making and I have verified the history. I have discussed in detail with the resident / student the findings and plan of treatment as documented by the resident / student and edited their note. I agree with their findings and treatment plan and have edited their documentation. I will continue to follow the patient during this hospital stay. BHASKAR CHISHOLM S-3 Oct 10, 2021 14:39 ANICETO VÁZQUEZ MD Oct 10, 2021 16:25
--- NOTE | 2021-10-10 16:18 | CR.PDOC ---
General Date of Consultation: Oct 10, 2021 Attending Physician: DENIS MONTANEZ MD Consultation History and Physical CHIEF COMPLAINT: Monique Dickey is a 55 year old male admitted last week for necrotizing fasciitis. HPI :underwent 3 I&D's and negative pressure dressing. Complaining of increased pain and swelling left upper extremity this morning. Call the office and was advised to go to the emergency room for work-up not available in the office. Thus far ultrasound negative for DVT, CT angios shows normal arterial flow, x- rays negative for any acute injury. Today this evening patient's left upper ex tremity looks much improved. Patient states his swelling is improved Patient describes accompanying chills, dizziness, and nausea since he's been home and in the ED. Patient says movement and touching the arm exacerbates the pain and medication helps. Patient also denies loss of appetite, nausea and vomiting, no diarrhea or constipation or abdominal pain. no SOB, chest pain or discomfort. Patient denies dysuria, difficulty urinating, hematuria, and hematochezia. PAST MEDICAL HISTORY: 1. Hep C. treated by Dr. Ellison 2. Opioid use disorder 3. alcohol use disorder 4. Left UE necrotizing fasciitis PAST SURGICAL HISTORY: 1. Left Ulnar I and D 10/05/2021 2. Right femur knee replacement 3. Left toe amputation 4. 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 REVIEW OF SYSTEMS: 10 point review of systems negative aside from positive findings in HPI HOME MEDICATIONS: Please see below. PHYSICAL EXAMINATION: VITAL SIGNS: see below GENERAL APPEARANCE: Comfortable lying in stretcher in emergency room HEENT: Normocephalic atraumatic, moist mucous membranes CARDIOVASCULAR: Vital signs stable LUNGS: Breathing comfortably on room air ABDOMEN: Soft nontender MUSCULOSKELETAL: Right arm 5/5 strength sensation intact. Left arm sensation intact, 4/5 strength. Left arm improved swelling. Incision is clean with no erythema. Mild possible drainage from the lower end of the incision. EXTREMITIES: Left arm improved swelling from first admission. Do not see any significant erythema NEUROLOGICAL: Sensory intact to light touch ALLERGIES: Please see below. HOME MEDICATIONS: Please see below. Assessment: Previous admission for necrotizing infection. Blood work shows improved infection. I would suggest prophylactic antibiotics for about 6 weeks or as per I&D consultation. As for the swelling if possible PT OT to help with swelling. You may benefit from a compression stocking left upper extremity . Follow-up with Dr. Wise as an outpatient at [facility] Vital Signs/I&O Vital Signs Date Time Temp Pulse Resp B/P (MAP) Pulse Ox O2 Delivery O2 Flow Rate FiO2 10/10/21 13:01 79 18 128/73 (91) 95 Room Air 10/10/21 09:22 97.0 Laboratory Data Labs 24H Laboratory Tests 2 10/10/21 09:59: Immature Granulocyte % (Auto) 1.4, Neutrophils (%) (Auto) 79.0H, Lymphocytes (%) (Auto) 13.8L, Monocytes (%) (Auto) 3.4, Eosinophils (%) (Auto) 1.8, Basophils (%) (Auto) 0.6, Neutrophils # (Auto) 9.5H, Lymphocytes # (Auto) 1.7, Monocytes # (Auto) 0.4, Eosinophils # (Auto) 0.2, Basophils # (Auto) 0.1, Nucleated Red Blood Cells % (auto) 0.0, Erythrocyte Sedimentation Rate 36H, Anion Gap 5L, Glomerular Filtration Rate > 60.0, Calcium Level 9.6#, Total Bilirubin 0.2, Aspartate Amino Transf (AST/SGOT) 31, Alanine Aminotransferase (ALT/SGPT) 42, Alkaline Phosphatase 70, C-Reactive Protein, Quantitative 1.40H, Total Protein 7.4, Albumin 3.4, Albumin/Globulin Ratio 0.9 10/10/21 10:15: Coronavirus (COVID-19)(PCR) NEGATIVE, Influenza Type A (RT-PCR) NEGATIVE, Influenza Type B (RT-PCR) NEGATIVE, Respiratory Syncytial Virus (PCR) NEGATIVE CBC/BMP Laboratory Tests 10/10/21 09:59 Microbiology Microbiology 10/10/21 Blood Culture, Received Pending 10/10/21 Blood Culture, Received Pending Allergies Coded Allergies: No Known Allergies (Unverified , 03/02/19) Home Medications Scheduled Amoxicillin/Potassium Clav (Augmentin 875-125 Tablet) 1 Each Tablet, 1 TAB PO BID for 10 Days, #20 Folic Acid (Folic Acid) 1 Mg Tablet, 1 MG PO DAILY, #20 Multivitamins (Thera M Plus Tablet) 1 Each Tablet, 1 TAB PO DAILY, #20 Nicotine (Nicotine Patch) 7 Mg Patch.td24, 1 PATCH TD DAILY, #7 Oxazepam (Oxazepam) 10 Mg Capsule, 10 MG PO as directed, #9 1 tab every 6 hours x 1 day, then 1 tab every 8 hours x 1 day, then 1 tab every 12 hours x 1 day then stop Thiamine Hcl (Vitamin B-1) 100 Mg Tablet, 1 TAB PO DAILY for 30 Days, #30 Scheduled PRN Oxycodone HCl/Acetaminophen (Oxycodone-Acetaminophen 5-325) 1 Each Tablet, 1 TAB PO TIDP PRN for pain for 5 Days, #15 DENIS MONTANEZ MD Oct 10, 2021 16:18
--- NOTE | 2021-10-10 18:23 | CR.PDOC ---
General Date of Consultation: Oct 10, 2021 Referring Provider: TRINH LAU MD Attending Physician: Supa Ellison MD Consultation REASON FOR CONSULTATION/CHIEF COMPLAINT: Monique Dickey is a 55 year old male admitted from the ED with complaints of left arm swelling and pain associated with recent diagnosis and treatment of necrotizing fascitis. HISTORY OF PRESENT ILLNESS: Patient presents to the ED with pain and swelling in his left upper extremity. The pain is severe and worsened by movement or anything touching his arm, and the arm was swollen so much that he could not close his hand. He reports having woke up in a pool of sweat, but he didn't take his temperature at the time. Since arriving at the ED, the swelling has reduced considerably, but he was still in considerable pain. He was admitted one week prior with a similar complaint, which resulted in a diagnosis of necrotizing fascitis. This was treated with repeated surgical debridement of the left upper arm, left lower arm, and the back of the left shoulder as well as IV Zosyn. The patient's condition improved in the hospital and he was discharged on 10/08/2021 with oral Augmentin and Percocet for pain control. ALLERGIES: Please see below. HOME MEDICATIONS: Please see below. PAST MEDICAL HISTORY: 1. Left UE necrotizing fascitis 2. Opioid use disorder 3. Alcohol use disorder 4. Hepatitis C PAST SURGICAL HISTORY: 1. Repeated I+D of left upper extremity 2. Left toe amputation 3. 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 PHYSICAL EXAMINATION: VITAL SIGNS: Please see below. GENERAL APPEARANCE: In pain and uncomfortable HEENT: Normocephalic atraumatic ABDOMEN: Slight tenderness, otherwise noncontributory MUSCULOSKELETAL: Left arm movement restricted by pain, tender to touch. EXTREMITIES: Left arm swollen with closed incisions on the upper and lower arm and shoulder. The arm is tender to any touch. NEUROLOGICAL: sensation intact, difficulty raising left arm possibly due to pain. LABORATORY DATA: Neutrophils (79%), ESR (36), and C reactive protein (1.40) elevated but trending down when compared with data from previous admission. Blood cultures pending but during the previous admission the necrotizing fascitis was caused by group C strep and anaerobes. IMAGING: - Right Humerus X-ray: Osseus structures/joints normal, Soft tissues un remarkable, No subcutaneous emphysema, surgical clips seen overlying visual forearm - Duplex US: Examined subclavian, axillary, limited jugular, brachial, and cephalic veins demonstrated normal wave/flow and compressibility. No evidence of a DVT, CL subclavian is patent + normal - CT angio UE left: no evidence of left UE arterial stenosis/ occlusion, no significant atherosclerotic changes noted. Musculature grossly unremarkable, osseus structures intact + age appropriate. Surgical clips visualized. no abscess or fluid/mass seen. ASSESSMENT/PLAN: The history and exam findings are consistent with post op status for necrotizing fascitis. There is no evidence of recurrence or spread of the infection at this time. 1. Pain management as per hospitalists with Percocet 5mg 2 tabs PO q6h PRN. 2. IV Zosyn restarted. He can be switched back to oral Augmentin upon discharge. 3. Advise patient to elevate his arm to reduce pain and swelling. 4. Follow up with in 2-3 days upon discharge to titrate the antibiotics based on clinical progress. Vital Signs/I&O Vital Signs Date Time Temp Pulse Resp B/P (MAP) Pulse Ox O2 Delivery O2 Flow Rate FiO2 10/10/21 13:01 79 18 128/73 (91) 95 Room Air 10/10/21 09:22 97.0 Laboratory Data Labs 24H Laboratory Tests 2 10/10/21 09:59: Immature Granulocyte % (Auto) 1.4, Neutrophils (%) (Auto) 79.0H, Lymphocytes (%) (Auto) 13.8L, Monocytes (%) (Auto) 3.4, Eosinophils (%) (Auto) 1.8, Basophils (%) (Auto) 0.6, Neutrophils # (Auto) 9.5H, Lymphocytes # (Auto) 1.7, Monocytes # (Auto) 0.4, Eosinophils # (Auto) 0.2, Basophils # (Auto) 0.1, Nucleated Red Blood Cells % (auto) 0.0, Erythrocyte Sedimentation Rate 36H, Anion Gap 5L, Glomerular Filtration Rate > 60.0, Calcium Level 9.6#, Total Bilirubin 0.2, Aspartate Amino Transf (AST/SGOT) 31, Alanine Aminotransferase (ALT/SGPT) 42, Alkaline Phosphatase 70, C-Reactive Protein, Quantitative 1.40H, Total Protein 7.4, Albumin 3.4, Albumin/Globulin Ratio 0.9 10/10/21 10:15: Coronavirus (COVID-19)(PCR) NEGATIVE, Influenza Type A (RT-PCR) NEGATIVE, Influenza Type B (RT-PCR) NEGATIVE, Respiratory Syncytial Virus (PCR) NEGATIVE CBC/BMP Laboratory Tests 10/10/21 09:59 Microbiology Microbiology 10/10/21 Blood Culture, Received Pending 10/10/21 Blood Culture, Received Pending Allergies Coded Allergies: No Known Allergies (Unverified , 03/02/19) Home Medications Scheduled Amoxicillin/Potassium Clav (Augmentin 875-125 Tablet) 1 Each Tablet, 1 TAB PO BID for 10 Days, #20 Folic Acid (Folic Acid) 1 Mg Tablet, 1 MG PO DAILY, #20 Multivitamins (Thera M Plus Tablet) 1 Each Tablet, 1 TAB PO DAILY, #20 Nicotine (Nicotine Patch) 7 Mg Patch.td24, 1 PATCH TD DAILY, #7 Oxazepam (Oxazepam) 10 Mg Capsule, 10 MG PO as directed, #9 1 tab every 6 hours x 1 day, then 1 tab every 8 hours x 1 day, then 1 tab every 12 hours x 1 day then stop Thiamine Hcl (Vitamin B-1) 100 Mg Tablet, 1 TAB PO DAILY for 30 Days, #30 Scheduled PRN Oxycodone HCl/Acetaminophen (Oxycodone-Acetaminophen 5-325) 1 Each Tablet, 1 TAB PO TIDP PRN for pain for 5 Days, #15 BELLO MCCOLLUM S-3 Oct 10, 2021 18:23
[2021-10-10 18:35] VITALS: BP 143/83
[2021-10-10] MEDS: PIPERACILLIN/TAZOBACTAM SOD 4.5 GM in D5W MINI-BAG PLUS 50 ML IV SCH (18:48)
[2021-10-10] MEDS: PERCOCET 5MG/325MG TAB PO PRN (18:48)
[2021-10-10 18:50] VITALS: BP 143/83
[2021-10-10] MEDS: MORPHINE 2 MG/ML 1ML VIAL (J2270) IV PRN (21:37)
[2021-10-10 22:00] VITALS: BP 133/72
[2021-10-11] MEDS: NICOTINE 7 MG/24 HR TRANSDERMAL TD SCH ×2 (01:18→09:57)
[2021-10-11] MEDS: KETOROLAC 30 MG/ML 1ML VIAL IV PRN (01:19)
[2021-10-11] MEDS: PIPERACILLIN/TAZOBACTAM SOD 4.5 GM in D5W MINI-BAG PLUS 50 ML IV SCH ×4 (01:19→16:59)
[2021-10-11] MEDS: ONDANSETRON 4MG/2ML VIAL IV PRN ×2 (01:19→16:58)
[2021-10-11] MEDS: MORPHINE 2 MG/ML 1ML VIAL (J2270) IV PRN (01:50)
[2021-10-11] MEDS: NS 1,000 ML IV SCH ×2 (02:25→15:07)
[2021-10-11] MEDS ORDERED: SIMETHICONE 80MG CHEW TAB PO PRN (04:00)
[2021-10-11] MEDS: PERCOCET 5MG/325MG TAB PO PRN ×2 (04:10→11:27)
[2021-10-11 06:00] VITALS: BP 161/74
[2021-10-11 07:01] LABS: HEMATOCRIT 38.4 % (42.0-52.0); HEMOGLOBIN 12.8 g/dl (13.5-17.5); MEAN CORPUSCULAR HGB CONC 33.3 g/dl (32.0-36.5); PLATELET COUNT, AUTOMATED 553 10^3/uL (150-450); RED BLOOD COUNT 4.13 10^6/uL (4.30-6.10); WHITE BLOOD COUNT 10.9 10^3/uL (4.0-10.0)
[2021-10-11 07:19] LABS: BLOOD UREA NITROGEN 17 MG/DL (7-18); C REACTIVE PROTEIN QUANTITATIV 0.68 MG/DL (0.00-0.30); CALCIUM LEVEL 9.1 MG/DL (8.5-10.1); CARBON DIOXIDE LEVEL 29 MEQ/L (21-32); CHLORIDE LEVEL 102 MEQ/L (98-107); CREATININE FOR GFR 0.97 MG/DL (0.70-1.30); GLOMERULAR FILTRATION RATE > 60.0 (>56); GLUCOSE, FASTING 133 MG/DL (70-100); SODIUM LEVEL 137 MEQ/L (136-145)
[2021-10-11 08:29] VITALS: BP 121/71
[2021-10-11 08:31] VITALS: BP 121/71
[2021-10-11] MEDS ORDERED: FLUBLOK(EGG FREE)(QUAD)INFLUENZA VACC 0.5ML SYRINGE 18YRS & OLDER IM ONE (09:00)
[2021-10-11] MEDS: THIAMINE 100 MG TAB PO SCH ×2 (09:57→20:07)
[2021-10-11] MEDS: MULTIVITAMINS/MINERALS THERAP 1 TAB PO SCH (09:57)
[2021-10-11] MEDS: FOLIC ACID 1 MG TAB PO SCH (09:57)
[2021-10-11] MEDS: DOCUSATE SODIUM 100MG CAPSULE PO SCH ×2 (09:58→20:07)
[2021-10-11] MEDS: ENOXAPARIN 40MG/0.4ML SYRINGE (J1650 PER 10MG) SC SCH (09:59)
[2021-10-11] MEDS ORDERED: MIRALAX *UNIT DOSE* 17GM PACKET PO PRN (10:20)
[2021-10-11] MEDS ORDERED: PILL CUTTER 1 EACH XX PRN (10:35)
[2021-10-11] MEDS: SIMETHICONE 80MG CHEW TAB PO PRN ×2 (10:43→16:58)
[2021-10-11] MEDS: HYDROmorphone 2 MG TAB PO PRN ×3 (10:44→20:08)
[2021-10-11 14:00] VITALS: BP 115/55
--- NOTE | 2021-10-11 16:11 | IPNPDOC ---
Text Note Date of Service The patient was seen on 10/11/21. NOTE Subjective: Monique waggoner is a 55 year old male who was admitted for left arm pain due to post surgical changes. The patient denies pain relief and states that "the medications aren't working" and his pain level remains at a 9/10. His left arm looks to have reduced in size/swelling and he is able to move it without pain. Patient notes he has an easier time grabbing things and spreading his fingers. Patient describes that he has a gas pain in his upper abdominal region. Patient denies chest pain, SOB, dysuria, and headache. 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 Plan #. Left UE pain due to post surgical changes - PO Dilaudid prn for pain management, will continue to be cautious of opioid pain meds - Continue zosyn IV; will transition back to Augmentin tomorrow - Pain at 10/10 GI discomfort/ nausea and "gas pain" - Zofran prn IV fdor nausea - Simethicone PO prn for gas pain #. Mild Hyperkalemia of 5.2, resolved - Post status hydration - repeat BMP #. Hx Hep.C - Was treated appropriately by Dr. Ellison - AST, ALT, and alk phos unremarkable #. Opioid use disorder - We will continue to be cautious with opioid pain medications #. Tobacco - Will need to vocational rehabilitation counselor on smoking cessation outpatient #. Alcohol abuse - c/w Thiamine, Folate, MVI - CIWA protocol started #. DVT prophylaxis - c/w Lovenox VS,Fishbone, I+O VS, Fishbone, I+O Laboratory Tests 10/10/21 09:59 10/11/21 06:47 Vital Signs Date Time Temp Pulse Resp B/P (MAP) Pulse Ox O2 Delivery O2 Flow Rate FiO2 10/11/21 08:31 68 121/71 10/11/21 08:29 98.7 18 98 Room Air I&O- Last 24 Hours up to 6 AM 10/11/21 06:00 Intake Total 1801 ml Output Total 1875 ml Balance -74 ml GME ATTESTATION GME ATTESTATION My faculty preceptor for this patient encounter was physically present during the encounter and was fully available. All aspects of the patient interview, examination, medical decision making process, and medical care plan development were reviewed and approved by the faculty preceptor. The faculty preceptor is aware and concurs with the plan as stated in the body of this note and will attest to such by his/her cosignature. ATTENDING NOTE I, Aniceto Vázquez, have independently examined this patient and performed my own physical exam, as well as reviewed the documentation and edited where necessary with the resident. For medical students we have performed the physical exam together and discussed medical decision making and I have verified the history. I have discussed in detail with the resident / student the findings and plan of treatment as documented by the resident / student and edited their note. I agree with their findings and treatment plan and have edited their documentation. I will continue to follow the patient during this hospital stay. BHASKAR CHISHOLM OMS-3 Oct 11, 2021 10:19 ANICETO VÁZQUEZ MD Oct 11, 2021 17:28
[2021-10-11 22:00] VITALS: BP 135/78
[2021-10-12] MEDS: NS 1,000 ML IV SCH (00:44)
[2021-10-12] MEDS: PIPERACILLIN/TAZOBACTAM SOD 4.5 GM in D5W MINI-BAG PLUS 50 ML IV SCH ×2 (00:44→05:08)
[2021-10-12] MEDS: HYDROmorphone 2 MG TAB PO PRN (05:08)
[2021-10-12] MEDS: SIMETHICONE 80MG CHEW TAB PO PRN (06:40)
[2021-10-12 07:27] LABS: HEMATOCRIT 37.4 % (42.0-52.0); HEMOGLOBIN 12.4 g/dl (13.5-17.5); MEAN CORPUSCULAR HEMOGLOBIN 31.2 pg (27.0-33.0); MEAN CORPUSCULAR HGB CONC 33.2 g/dl (32.0-36.5); PLATELET COUNT, AUTOMATED 536 10^3/uL (150-450); RED BLOOD COUNT 3.98 10^6/uL (4.30-6.10); WHITE BLOOD COUNT 10.2 10^3/uL (4.0-10.0)
[2021-10-12 07:51] LABS: BLOOD UREA NITROGEN 9 MG/DL (7-18); CALCIUM LEVEL 8.9 MG/DL (8.5-10.1); CARBON DIOXIDE LEVEL 29 MEQ/L (21-32); CHLORIDE LEVEL 107 MEQ/L (98-107); CREATININE FOR GFR 0.82 MG/DL (0.70-1.30); GLOMERULAR FILTRATION RATE > 60.0 (>56); GLUCOSE, FASTING 117 MG/DL (70-100); POTASSIUM SERUM 4.3 MEQ/L (3.5-5.1); SODIUM LEVEL 139 MEQ/L (136-145)
[2021-10-12] MEDS ORDERED: DILA2TAB6 PO (08:24)
[2021-10-12] MEDS: THIAMINE 100 MG TAB PO SCH (08:42)
[2021-10-12] MEDS: ENOXAPARIN 40MG/0.4ML SYRINGE (J1650 PER 10MG) SC SCH ×2 (08:42→08:44)
[2021-10-12] MEDS: DOCUSATE SODIUM 100MG CAPSULE PO SCH (08:42)
[2021-10-12] MEDS: MULTIVITAMINS/MINERALS THERAP 1 TAB PO SCH (08:42)
[2021-10-12] MEDS: FOLIC ACID 1 MG TAB PO SCH (08:42)
[2021-10-12] MEDS: NICOTINE 7 MG/24 HR TRANSDERMAL TD SCH (08:42)
--- NOTE | 2021-10-12 09:40 | DS.PDOC ---
Discharge Summary General Date of Admission Oct 10, 2021 at 13:40 Date of Discharge 10/12/2021 Attending Physician: ANICETO LAU MD Discharge Summary PROCEDURES PERFORMED DURING STAY: [None]. ADMITTING DIAGNOSES: 1. Left arm pain, swelling and erythema likely from cellulitis 2. Mild Hyperkalemia 3. History of Hep.C 4. Opioid use disorder 5. Tobacco use 6. Alcohol abuse DISCHARGE DIAGNOSES: 1. Left upper extremity pain due to post surgical changes 2. Bloating/ingestion 3. History of Hepatitis C 4. Opioid use disorder 5. Tobacco use 6. Alcohol abuse COMPLICATIONS/CHIEF COMPLAINT: Left arm pain and swelling HISTORY OF PRESENT ILLNESS: Patient is a 55 year old male presented to [facility] because of increased swelling and pain in his arm since last hospital discharge on 10/08/2021. He also reported chills, dizziness, and nausea as well. The left arm pain is reported as a severe pain, aggravated by movement and touching and alleviated by pain medications. He denies dyspnea or chest pain/discomfort. He also denies loss of appetite, nausea, vomiting,diarrhea, constipation, abdominal pain, dysuria, difficulty urinating, hematuria, and hematochezia. HOSPITAL COURSE: Patient was noticed to have mild swelling in his left upper extremity with sutures on healing wound. His left upper extremity images showed no acute abnormality. Patient had mild leukocytosis and reported fever, chills, and sweating. Patient was started on IV Zosyn. He was also started on IV Toradol and PO Percocet PRN for left upper extremity pain control. He also reported mid upper abdominal pain which resolves with Simethicone PRN. Orthopedic cash management specialist was consulted and recommended prophylactic antibiotics for about 6 weeks as well as compressive stocking on left upper extremity. He was started on STEPHANIA bandage for left upper extremity compression for 12 hours on and 12 hours off. ID was called on consultation; recommended continuing with Augmentin. Patient's pain continued to be severe despite the IV Toradol, PO acetaminophen, and Percocet, and PO Dilaudid PRN was started. On the day of discharge, patient reported significant improvement of left upper extremity pain. The left upper extremity pain alleviated with PO Dilaudid. He denies extremity weakness or movement restriction. He denies numbness, tingling, or loss of sensation. DISCHARGE MEDICATIONS: Please see below. ALLERGIES: Please see below. PHYSICAL EXAMINATION ON DISCHARGE: VITAL SIGNS: Please see below. GENERAL: Alert and awake, not in acute distress HEENT: Head normocephalic atraumatic, no conjunctiva injection,mucosa moist and pin NECK: Supple CARDIOVASCULAR EXAMINATION: Regular rate and rhythm, no murmur RESPIRATORY EXAMINATION: Clear to auscultation bilaterally, no rales, rhonchi or wheezing. No labored breathing ABDOMINAL EXAMINATION: Soft, no tenderness upon palpation. Bowel sounds auscultated in all 4 quadrants. No guarding or distention EXTREMITIES: Left upper extremity range of motion grossly normal including finger abduction and adduction. 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 SKIN: NO obvious cyanosis or erythema. Sutures present on healing wounds in left upper extremities NEUROLOGICAL EXAMINATION: OrientedX3. Memory grossly intact. No restriction in left fingers abduction and adduction. PSYCHIATRIC EXAMINATION: Mood and affect stable LABORATORY DATA: Please see below. IMAGING: Upper extremity CTA showed "Essentially normal examination of the left upper extremity arterial system. No acute abnormality in the surrounding musculoskeletal structures identified." Left upper extremity duplex venous US showed "No evidence for deep venous thrombosis." Left humerus X ray showed "No obvious acute osseous abnormality." PROGNOSIS: Fair ACTIVITY: [As tolerated]. DIET: Diet as tolerated DISCHARGE PLAN AND INSTRUCTIONS: 1. Use STEPHANIA bandages for left upper extremity compression, 12 hours on and 12 hours off 2. Take medication as prescribed 3. Follow up with your PCP in 1 week 4. Follow up with orthopedic surgeon in 1 week 5. Follow up with infectious disease specialist in 2-3 days ITEMS TO FOLLOWUP ON ON OUTPATIENT: 1. Left arm swelling and pain/suture removal 2. Tobacco use 3. Alcohol use 4. Opioid use 5. Bloating/ingestion DISCHARGE CONDITION: [Stable]. TIME SPENT ON DISCHARGE: [38] minutes. Vital Signs/I&Os Vital Signs Date Time Temp Pulse Resp B/P (MAP) Pulse Ox O2 Delivery O2 Flow Rate FiO2 10/12/21 06:35 17 10/11/21 22:00 99.1 70 135/78 (97) 96 Room Air I&O- Last 24 Hours up to 6 AM 10/12/21 06:00 Intake Total 3645 ml Output Total 3150 ml Balance 495 ml Laboratory Data Labs 24H Laboratory Tests 2 10/12/21 07:12: Nucleated Red Blood Cells % (auto) 0.0, Anion Gap 3L, Glomerular Filtration Rate > 60.0, Calcium Level 8.9 CBC/BMP Laboratory Tests 10/12/21 07:12 Microbiology Microbiology 10/10/21 Blood Culture - Preliminary, Resulted No growth after 24 hours . All specim... 10/10/21 Blood Culture - Preliminary, Resulted No growth after 24 hours . All specim... Discharge Medications Scheduled Amoxicillin/Potassium Clav (Augmentin 875-125 Tablet) 1 Each Tablet, 1 TAB PO BID Folic Acid (Folic Acid) 1 Mg Tablet, 1 MG PO DAILY Multivitamins (Thera M Plus Tablet) 1 Each Tablet, 1 TAB PO DAILY Nicotine (Nicotine Patch) 7 Mg Patch.td24, 1 PATCH TD DAILY Thiamine Hcl (Vitamin B-1) 100 Mg Tablet, 1 TAB PO DAILY Scheduled PRN Hydromorphone HCl (Dilaudid) 2 Mg Tablet, 0.5-1 TAB PO QIDP PRN for pain Allergies Coded Allergies: No Known Allergies (Unverified , 03/02/19) GME ATTESTATION GME ATTESTATION My faculty preceptor for this patient encounter was physically present during the encounter and was fully available. All aspects of the patient interview, examination, medical decision making process, and medical care plan development were reviewed and approved by the faculty preceptor. The faculty preceptor is aware and concurs with the plan as stated in the body of this note and will at test to such by his/her cosignature. ATTENDING NOTE I, Aniceto Lau, have independently examined this patient and performed my own physical exam, as well as reviewed the documentation and edited where necessary with the resident. For medical students we have performed the physical exam together and discussed medical decision making and I have verified the history. I have discussed in detail with the resident / student the findings and plan of treatment as documented by the resident / student and edited their note. I agree with their findings and treatment plan and have edited their documentation. I will continue to follow the patient during this hospital stay. Time spent on discharge 35 minutes DUANE OROZCO DO Oct 12, 2021 09:40 ANICETO LAU MD Oct 12, 2021 14:00
== END 2021-10-12 11:20 | disposition home health service (06) | DRG 861 ==
LOC: M ED 09:20 → M ED INP 13:40 → ENRESERV 17:13 → M MSPAV 18:28
PROVIDERS: ADMIT Internal Medicine; ATTEND Internal Medicine
DX: G89.18 Other acute postprocedural pain (principal); E87.5 Hyperkalemia; F10.10 Alcohol abuse, uncomplicated; F17.200 Nicotine dependence, unspecified, uncomplicated; B18.2 Chronic viral hepatitis C; F11.90 Opioid use, unspecified, uncomplicated; Z79.899 Other long term (current) drug therapy; Z89.422 Acquired absence of other left toe(s); Z96.651 Presence of right artificial knee joint

== ENCOUNTER → 2021-10-16 | Outpatient (CLI) | payer MEDICARE, MEDICAID ==
[~2021-10-16] MED LIST changes: +DILA2TAB6 PO
[2021-10-16 13:26] LABS: BASO # 0.1 10^3/uL (0.0-0.2); BASO % 1.6 % (0.0-1.0); EOS # 0.1 10^3/uL (0.0-0.5); EOS % 1.7 % (0.0-3.0); HEMATOCRIT 39.2 % (42.0-52.0); HEMOGLOBIN 12.8 g/dl (13.5-17.5); LYMPH # 1.7 10^3/uL (1.5-5.0); LYMPH % 24.8 % (24.0-44.0); MEAN CORPUSCULAR HEMOGLOBIN 30.4 pg (27.0-33.0); MEAN CORPUSCULAR HGB CONC 32.7 g/dl (32.0-36.5); MEAN CORPUSCULAR VOLUME 93.1 fl (80.0-96.0); MONO # 0.5 10^3/uL (0.0-0.8); MONO % 7.4 % (2.0-8.0); NEUTROPHILS # 4.4 10^3/uL (1.5-8.5); NEUTROPHILS % 64.1 % (36.0-66.0); PLATELET COUNT, AUTOMATED 502 10^3/uL (150-450); RED BLOOD COUNT 4.21 10^6/uL (4.30-6.10); WHITE BLOOD COUNT 6.9 10^3/uL (4.0-10.0)
== END ==
LOC: M PLALAB 10:59
PROVIDERS: ATTEND Internal Medicine Infectious Disease
DX: M72.6 Necrotizing fasciitis (principal)

== ENCOUNTER 2021-10-25 12:13 | Day surgery (SDC) | payer MEDICAID, MEDICARE ==
[~2021-10-25] VITALS: Ht 172.7 cm; Wt 80.3 kg
[~2021-10-25 12:13] MED LIST changes: +LIDOCAINE 1% MDV 20ML VIAL SQ PRN; +LR 1,000 ML IV ONE; +ceFAZolin SOD 2 GM in IV 1 EA IV ONE
--- OUTSIDE RECORDS SUMMARY | 2021-10-25 12:17 | CCD | Continuity of Care Document ---
Author Author Monique MONTANEZ DO Organization Unknown Address [address] [place] [address], [place] [address] Phone [phone] Problems Description No Information Available Social History Type Date Description Comments Sex Unknown ETOH Use Denies alcohol use Tobacco Use Start: Unknown Patient is a current smoker, smo kes every day Recreational Drug Use Denies Drug Use Smoking Status Reviewed: 10/23/21 Patient is a current smoker, smokes every day Allergies and adverse reactions Description No Known Drug Allergies Medications Active Medications SIG Qnty Indications Ordering Provide r Date Percocet 5-325mg Tablets 1 tsp by mouth four times a day as directed 20tabs Sean Montanez DO 10/18/2021 Amoxicillin/Clavulanate Potassium 875-125mg Tablets 1 tabs by mouth twice a day as directed 20tabs Sean Arguello om, DO 10/18/2021 Amoxicillin/Clavulanate Potassium 875-125mg Tablets Take One Tablet By Mouth Twice A Day For 10 Days Unknown Folic Acid 1mg Tablets Take One Tablet By Mouth Every Day Unknown Hydromorphone HCL 2mg Tablets Take 1/2 To 1 Tablet By Mouth Four Times A Day as Needed For Pain Maximum Daily Unknown Immunizations Description No Information Available Vital Signs Date Vital Result Comment 10/23/2021 2:42pm Body Temperature 97.0 F 10/18/2021 11:07am Body Temperature 97.1 F Results Description No Information Available Procedures Description No Information Available Medical Devices Description No Information Available Encounters Type Date Location Provider Dx Diagnosis Office Visit 10/18/2021 11:20a [facility] Jose Montanez DO Z48.89 Encounter for other specified surgical a ftercare T81.31xA Disruption of external opera tion (surgical) wound, NEC, init Office Visit 10/13/2021 1:30p [facility] Jose Montanez DO M72.6 Necrotizing fasciitis Z48.89 Encounter for other specifie d surgical aftercare Assessments Date Code Description Provider 10/23/2021 Z48.89 Encounter for other specified harding rgical aftercare Sean Montanez DO 10/18/2021 Z48.89 Encounter for other specified harding rgical aftercare Sean Montanez DO 10/18/2021 T81.31xA 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 (surgical) wound, not elsewhere classified, initial encounter Sean Montanez DO 10/13/2021 M72.6 Necrotizing fasciitis Sean Montanez DO 10/13/2021 Z48.89 Encounter for other specified harding rgical aftercare Sean Montanez DO Plan of Treatment Future Appointment(s):* 10/25/2021 1:30 pm - Sean Montanez DO at [facility] 10/23/2021 - Sean Montanez DO* Z48.89 Encounter for other specified surgical aftercare* Comments:* Consented for a left I&D and primary closure Functional Status Description No Information Available Mental Status Description No Information Available Referrals Description No Information Available
--- OUTSIDE RECORDS SUMMARY | 2021-10-25 12:17 | CCD | Continuity of Care Document ---
Author Author Monique DENSON DO Organization Unknown Address [address] [place] [address] [place] [address] Phone [phone] Problems Description No Information Available Social History Type Date Description Comments Sex Unknown ETOH Use Denies alcohol use Tobacco Use Start: Unknown Patient is a current smoker, smo kes every day Recreational Drug Use Denies Drug Use Smoking Status Reviewed: 10/18/21 Patient is a current smoker, smokes every day Allergies and adverse reactions Description No Known Drug Allergies Medications Active Medications SIG Qnty Indications Ordering Provide r Date Percocet 5-325mg Tablets Sean Denson DO 10/18/2021 Amoxicillin/Clavulanate Potassium 875-125mg Tablets Take One Tablet By Mouth Twice A Day For 10 Days Unknown Folic Acid 1mg Tablets Take One Tablet By Mouth Every Day Unknown Hydromorphone HCL 2mg Tablets Take 1/2 To 1 Tablet By Mouth Four Times A Day as Needed For Pain Maximum Daily Unknown Immunizations Description No Information Available Vital Signs Date Vital Result Comment 10/18/2021 11:07am Body Temperature 97.1 F 10/13/2021 1:07pm Body Temperature 97.3 F Results Description No Information Available Procedures Description No Information Available Medical Devices Description No Information Available Encounters Type Date Location Provider Dx Diagnosis Office Visit 10/13/2021 1:30p [facility] Jose Denson DO M72.6 Necrotizing fasciitis Z48.89 Encounter for other specifie d surgical aftercare Assessments Date Code Description Provider 10/13/2021 M72.6 Necrotizing fasciitis Sean Denson DO 10/13/2021 Z48.89 Encounter for other specified harding rgical aftercare Sean Denson DO Plan of Treatment Future Appointment(s):* 10/25/2021 1:30 pm - Sean Denson DO at [facility] 10/13/2021 - Sean Denson DO* M72.6 Necrotizing fasciitis * Z48.89 Encounter for other specified surgical aftercare Functional Status Description No Information Available Mental Status Description No Information Available Referrals Description No Information Available
--- OUTSIDE RECORDS SUMMARY | 2021-10-25 12:17 | CCD | Continuity of Care Document ---
Author Author Monique DENSON DO Organization Unknown Address [address] [place] [address], [facility] [place] [address] Phone [phone] Problems Description No Information Available Social History [...] times a day as directed 20tabs Sean Denson DO 10/18/2021 Amoxicillin/Clavulanate Potassium 875-125mg [...] Provider Dx Diagnosis Office Visit 10/13/2021 1:30p [facility] Jose Denson DO M72.6 Necrotizing fasciitis Z48.89 Encounter for other specifie d surgical aftercare Assessments Date Code Description Provider 10/18/2021 Z48.89 Encounter for other specified harding rgical aftercare Sean Denson DO 10/13/2021 M72.6 Necrotizing fasciitis Sean Denson DO 10/13/2021 Z48.89 Encounter for other specified ahrding rgical aftercare Sean Denson DO Plan of Treatment Future Appointment(s):* 10/25/2021 1:30 pm - Sean Denson DO at [facility] 10/18/2021 - Sean Denson DO* Z48.89 Encounter for other specified surgical aftercare* Comments:* Follow-up 1 week for wound check Functional Status Description No Information Available Mental Status Description No Information Available Referrals Description No Information Available
--- OUTSIDE RECORDS SUMMARY | 2021-10-25 12:17 | CCD | Continuity of Care Document ---
Author Author Monique MONTANEZ DO Organization Unknown Address [address] [place] [address], [facility] [place] [address] Phone [phone] Problems Description No Information Available Social History [...] Provider Dx Diagnosis Office Visit 10/18/2021 11:20a [facility] Jose Montanez DO Z48.89 Encounter for other specified surgical a ftercare T81.31xA Disruption of external opera tion (surgical) wound, NEC, init Office Visit 10/13/2021 1:30p [facility] Jose Montanez DO M72.6 Necrotizing fasciitis Z48.89 Encounter for other specifie d surgical aftercare Assessments Date Code Description Provider 10/23/2021 Z48.89 Encounter for other specified harding rgical aftercare Sean Montanez DO 10/18/2021 Z48.89 Encounter for other specified harding rgical aftercare Sean Montanez DO 10/18/2021 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, not elsewhere classified, initial encounter Sean Montanez DO 10/13/2021 M72.6 Necrotizing fasciitis Sean Montanez DO 10/13/2021 Z48.89 Encounter for other specified harding rgical aftercare Sean Montanez DO Plan of Treatment Future Appointment(s):* 10/25/2021 1:30 pm - Sean Montanez DO at [facility] 10/23/2021 - Sean Montanez DO* Z48.89 Encounter for other specified surgical aftercare* Comments:* Consented for a left I&D and primary closure Functional Status Description No Information Available Mental Status Description No Information Available Referrals Description No Information Available
--- OUTSIDE RECORDS SUMMARY | 2021-10-25 12:17 | CCD | Continuity of Care Document ---
Author Author Monique MONTANEZ DO Organization Unknown Address [address] [place] [address], [facility] [place] [address] Phone [phone] Problems Description No Information Available Social History [...] Provider Dx Diagnosis Office Visit 10/18/2021 11:20a [facility] Jose Montanez DO Z48.89 Encounter for other specified surgical a ftercare T81.31xA Disruption of external opera tion (surgical) wound, NEC, init Office Visit 10/13/2021 1:30p [facility] Jose Montanez DO M72.6 Necrotizing fasciitis Z48.89 Encounter for other specifie d surgical aftercare Assessments Date Code Description Provider 10/18/2021 Z48.89 Encounter for other specified harding rgical aftercare Sean Montanez DO 10/18/2021 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
--- OUTSIDE RECORDS SUMMARY | 2021-10-25 12:17 | CCD | Continuity of Care Document ---
Author Author Monique DENSON DO Organization Unknown Address [address] [place] [address], [facility] [place] [address] Phone [phone] Problems Description No Information Available Social History [...] Provider Dx Diagnosis Office Visit 10/13/2021 1:30p [facility] Jose Denson DO M72.6 Necrotizing fasciitis [...] 1:30 pm - Sean Denson DO at [facility] 10/18/2021 - Sean Denson DO* Z48.89 Encounter for other specified surgical aftercare* Comments:* Follow-up 1 week for wound check Functional Status Description No Information Available Mental Status Description No Information Available Referrals Description No Information Available
--- OUTSIDE RECORDS SUMMARY | 2021-10-25 12:17 | CCD | Continuity of Care Document ---
Author Author Monique DENSON DO Organization Unknown Address [address] [place] [address] [place] [address] Phone [phone] Problems Description No Information Available Social History Type Date Description Comments Sex Unknown ETOH Use Denies alcohol use Tobacco Use Start: Unknown Patient is a current smoker, smo kes every day Recreational Drug Use Denies Drug Use Smoking Status Reviewed: 10/13/21 Patient is a current smoker, smokes every day Allergies and adverse reactions Description No Known Drug Allergies Medications Active Medications SIG Qnty Indications Ordering Provide r Date Amoxicillin/Clavulanate Potassium 875-125mg Tablets Take One Tablet By Mouth Twice A Day For 10 Days Unknown Folic Acid 1mg Tablets Take One Tablet By Mouth Every Day Unknown Immunizations Description No Information Available Vital Signs Date Vital Result Comment 10/13/2021 1:07pm Body Temperature 97.3 F Results Description No Information Available Procedures Description No Information Available Medical Devices Description No Information Available Encounters Type Date Location Provider Dx Diagnosis Office Visit 10/13/2021 1:30p [facility] Jose Denson DO M72.6 Necrotizing fasciitis Z48.89 Encounter for other specifie d surgical aftercare Assessments Date Code Description Provider 10/13/2021 M72.6 Necrotizing fasciitis Sean Denson DO 10/13/2021 Z48.89 Encounter for other specified harding rgical aftercare Sean Denson DO Plan of Treatment Future Appointment(s):* 10/18/2021 11:20 am - Sean Denson DO at [facility] 10/13/2021 - Sean Denson DO* M72.6 Necrotizing fasciitis * Z48.89 Encounter for other specified surgical aftercare Functional Status Description No Information Available Mental Status Description No Information Available Referrals Description No Information Available
--- OUTSIDE RECORDS SUMMARY | 2021-10-25 12:18 | CCD | Continuity of Care Document ---
Author Author Monique DENSON DO Organization Unknown Address [address] [place] [address], [facility] [place] [address] Phone [phone] Problems Description No Information Available Social History [...] Medical Devices Description No Information Available Encounters Description No Information Available Assessments Date Code Description Provider 10/13/2021 M60.001 Infective myositis, unspecified left arm Sean Denson DO Plan of Treatment 10/13/2021 - Sean Denson DO* M60.001 Infective myositis, unspecified left arm* Comments:* Follow-up 1 week for wound check and possible removal of sutures. Functional Status Description No Information Available Mental Status Description No Information Available Referrals Description No Information Available
--- OUTSIDE RECORDS SUMMARY | 2021-10-25 12:18 | CCD ---
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 If you continue you may have access to information: Regarding HIV / AIDS; Provided by facilities licensed or operated by the [facility] Office of Mental Health; or Provided by the [facility] Office for People With Developmental Disabilities. If such information is present, then the following [facility] mandated warning applies: This information has been [...] law may result in a fine or senior living sentence or both. A general authorization for the release of medical or other information is NOT sufficient authorization for further disc losure. Allergies and Adverse Reactions Type Description Substance Reaction Status Data Source(s ) Drug allergy Drug allergy No Known Allergies [facility] Family History Family Member Name Family Member Gender Family Member Status Date o f Status Description Data Source(s) Unknown Unknown Encounters Encounter Providers Location Date Indications Data Source(s ) Office Visit Attender: DENIS Feliz/Rosario/Hitesh/ Reindl 10/18/2021 10:20:00 AM EST [facility] ([facility]) Office Visit Attender: DENIS Feliz/Rosario/Hitesh/ Reindl 10/13/2021 12:30:00 PM EST [facility] ([facility]) Outpatient 08/09/2021 02:40:19 PM EDT [facility] ([facility]) Outpatient Attender: Yefri Pabon PA-C 08/09/2021 02:39:46 PM EDT - 08/09/2021 04:26:50 PM EDT [facility] ([facility]) Outpatient 08/09/2021 01:56:10 PM EDT [facility] ([facility]) [place] [address] [address] 06/15/2021 12:00:00 AM EDT eCW1 ([facility]) [place] [address] [address] 06/15/2021 12:00:00 AM EDT eCW1 ([facility]) Inpatient Attender: Paula Murillo nder: PAULA SERVIN MDAdmitter: PAULA SERVIN MD CPSCAORT-CHEPPDREH 05/19/2021 07:01:00 PM EDT - 05/20/2021 11:05:00 AM EDT PSYCHOACTIVE SUBSTANCE DEPENDENCE [facility] PSYCHOACTIVE SUBSTANCE DEPENDENCE Patient discharged. Immunizations Vaccine Date Status Description Data Source(s) COVID-19 VACCINE Moderna 10/23/2021 12:00:00 AM EST completed [facility] Vaccine Series Complete: YESThis Data wa s Submitted to [facility] Via [employer]. Moderna #2 dose COVID-19(given elsewhere) SARSCOV2 VAC 100MCG/0.5ML IM 03/13/2021 03:12:00 PM EDT completed eCW1 ([facility]) Moderna #2 dose COVID-19(given elsewhere) SARSCOV2 VAC 100MCG/0.5ML IM 03/13/2021 03:12:00 PM EDT completed eCW1 ([facility]) COVID-19 VACCINE Moderna 03/13/2021 12:00:00 AM EDT completed [facility] Vaccine Series Complete: YESThis Data wa s Submitted to [facility] Via [employer]. Moderna #1 dose COVID-19(given elsewhere) SARSCOV2 VAC 100MCG/0.5ML IM 02/10/2021 03:11:00 PM EDT completed eCW1 ([facility]) Moderna #1 dose COVID-19(given elsewhere) SARSCOV2 VAC 100MCG/0.5ML IM 02/10/2021 03:11:00 PM EDT completed eCW1 ([facility]) COVID-19 VACCINE Moderna 02/10/2021 12:00:00 AM EDT completed [facility] Vaccine Series Complete: NOThis Data was Submitted to [facility] Via [employer]. Medications Medication Brand Name Start Date Product Form Dose Route Admi nistrative Instructions Pharmacy Instructions Status Indications Reaction Description Data Source(s) 5-325 mg 10/23/2021 12:00:00 AM EST tablet 20 TAKE ONE TABLET BY MOUTH FOUR TIMES A DAY DIRECTED MAXIMUM DAILY DOSE = 4 TAKE ONE TABLET BY MOUTH FOUR TIMES A DAY DIRECTED MAXIMUM DAILY DOSE = 4 SOLD: 10/23/2021 [facility] Acetaminophen 325 MG / Oxycodone Hydrochloride 5 MG Or al Tablet [Percocet] Percocet 10/18/2021 12:00:00 AM EST ORAL active MED[facility] ([facility]) 5-325 mg 10/18/2021 12:00:00 AM EST tablet 20 TAKE ONE TABLET BY MOUTH FOUR TIMES A DAY DIRECTED, MAXIMUM DAILY DOSE = 4 TAKE ONE TABLET BY MOUTH FOUR TIMES A DAY DIRECTED, MAXIMUM DAILY DOSE = 4 SOLD: 10/18/2021 [facility] Amoxicillin 875 MG / Clavulanate 125 MG Oral Tablet Am oxicillin/Clavulanate Potassium 10/18/2021 12:00:00 AM EST ORAL active MEDENT ([facility]) 2 mg 10/12/2021 12:00:00 AM EST tablet 20 TAKE 1/2 TO 1 TABLET BY MOUTH FOUR TIMES A DAY NEEDED FOR PAIN MAXIMUM DAILY DOSE = 4 TAKE 1/2 TO 1 TABLET BY MOUTH FOUR TIMES A DAY NEEDED FOR PAIN MAXIMUM DAILY DOSE = 4 SOLD: 10/12/2021 [facility] Amoxicillin 875 MG / Clavulanate 125 MG [...] TABLET BY MOUTH EVERY DAY SOLD: 10/08/2021 [facility] Insurance Providers Payer name Policy type / Coverage type Policy ID Covered democrat ID Covered democrat's relationship to carlos Policy Carlos Plan Information MEDICAID M [id number] Self [id number] MEDICARE [id number] SP [id number] A MEDICARE [id number] SP [id number] A MEDICAID [id number] SP [id number] [facility] MEDICAID [id number] SP [id number] [place] Medicare Part B [id number] Self [id number] Medicaid Medicaid [id number] Self [id number] MEDICARE [id number] SP [id number] EMEDNY [id number] SP [id number] MEDICARE C [id number] S [id number] MEDICAID M [id number] S [id number] MEDICAID [id number] SP [id number] MEDICARE [id number] SP [id number] A Medicare Natl Gov't Servi Medicare Primary [id number] Self MEDICAID - O/P EMERGENCY ROOM [id number] 18 [id number] MEDICARE PART A -O/P [id number] 18 [id number] SELF PAY UNAVAILABLE SP UNAVAILA BLE OTHER WORKERS COMPENSATION [id number] SP [id number] MEDICAID - CLINIC [id number] EV [id number] MEDICAID-PHYSICIAN [id number] MEDICAID-O/P RAD ONLY [id number] MEDICAID-O/P [id number] 18 [id number] [facility] MEDICAID [id number] SP [id number] T [id number] MEDICARE [id number] SP [id number] MEDICARE [id number] SP [id number] A [facility] [id number] SP [id number] MEDICAID [id number] Unemployed [id number] MEDICARE [id number] Unemployed [id number] SELF PAY ONLY [id number] SP [id number] Problems, Conditions, and Diagnoses Code Display Name Description Problem Type Effective Dates Data Source(s) J44.9 Chronic obstructive pulmonary disease, u nspecified CHRONIC OBSTRUCTIVE PULMONARY DISEASE, UNSPECIFIED Diagnosis 05/19/2021 07:01:[address] [facility] Z53.29 Procedure and treatment not carried out because of patient's decision for other reasons PROC/TRTMT NOT CRD OUT BEC PT DECISION FOR OTH REASONS Diagn osis 05/19/2021 07:01:[address] [facility] F17.210 Nicotine dependence, cigarettes, uncompl icated NICOTINE DEPENDENCE, CIGARETTES, UNCOMPLICATED Diagnosis 05/19/2021 07:01:[address] [facility] F12.20 Cannabis dependence, uncomplicated CANNABIS DEPE NDENCE, UNCOMPLICATED Diagnosis 05/19/2021 07:01:[address] [facility] F11.20 Opioid dependence, uncomplicated OPIOID DEPENDEN CE, UNCOMPLICATED Diagnosis 05/19/2021 07:01:[address] [facility] F11.21 [id number] Opioid dependence in remission Problem 06/15/2021 12:00:00 AM EDT eCW1 ([facility]) B19.20 [id number] Hepatitis C virus in fection without hepatic coma, unspecified chronicity Problem 06/15/2021 12:00:00 AM EDT eCW1 ([facility]) Surgeries/Procedures No Information Results ID Date Data Source [id number] 10/10/2021 10:15:00 AM EST [facility] Name Value Range Interpretation Code Description Data Kamila rce(s) Supporting Document(s) SARS coronavirus 2 RNA [Presence] in Res piratory specimen by JOANNA with probe detection NEGATIVE [facility] This lab was ordered by [facility] a nd reported by [facility]. ID Date Data Source [id number] 09/30/2021 08:39:00 AM EDT [facility] Name Value Range Interpretation Code Description Data Kamila rce(s) Supporting Document(s) SARS coronavirus 2 RNA [Presence] in Res piratory specimen by JOANNA with probe detection NEGATIVE [facility] This lab was ordered by [facility] a nd reported by [facility]. ID Date Data Source [id number] 08/09/2021 03:00:00 PM EDT [facility] Name Value Range Interpretation Code Description Data Kamila rce(s) Supporting Document(s) SARS-CoV-2 RNA Resp Ql JOANNA+probe NOT DETECTED [facility] This lab was ordered by [facility] and reported by [facility]. ID Date Data Source [id number] 05/24/2021 11:16:00 PM EDT [facility] Name Value Range Interpretation Code Description Data Kamila rce(s) Supporting Document(s) Cannabinoids Confirm,Ur result . Very abnor mal (applies to non-numeric units [facility] Carboxy THC GC/MS Conf 22 ng/mL Cutoff=10 01 Performed at: [facility] [id number] Migration Specialist: Yanira oCx MD, Phone: [phone] ID Date Data Source [id number] 05/19/2021 09:03:00 PM EDT [facility] Name Value Range Interpretation Code Description Data Kamila rce(s) Supporting Document(s) Opiate Screen,Urine Negative Normal (applies to non-nume candy results) [facility] Amphetamine Screen,Urine Negative Normal (applies to non -numeric results) [facility] Benzodiazepines Scrn,Ur result Negative N ormal (applies to non-numeric results) [facility] Cocaine Screen,Urine Negative Normal (applies to non-num lucas results) [facility] Methadone Screen,Urine Negative Normal (applies to non-n umeric results) [facility] Cannabinoid Screen, Ur Negative [place] [facility] Therapeutic Drug Ranges for Emergency an d Rehabilitation Threshold Levels (ng/mL) Cocaine 300 Opiates 300 Cannabinoids 50 Barbiturates 200 Benzodiazepine 200 Methadone 300 Amphetamines 1000 All positive findings are presumptive and unconfirmed. Confirmation of positive results are performed only at request of provider. Unconfirmed results must not be used for non-medical purposes (i.e. pre-employment and legal purposes) ID Date Data Source [id number] 05/19/2021 08:48:00 PM EDT [facility] Name Value Range Interpretation Code Description Data Kamila rce(s) Supporting Document(s) Color,Urine Yellow Normal (applies to non-numeric resu lts) [facility] Clarity,Urine Clear Normal (applies to non-numeric re sults) [facility] Specific [place],Urine 1.001-1.030 Normal (applies to non- numeric results) [facility] PH,Urine 5.0-8.0 Normal (applies to non-numeric resul ts) [facility] Protein,Urine Negative Normal (applies to non-numeric re sults) [facility] Glucose,Urine (UA) Negative Normal (applies to non-numer ic results) [facility] Ketones,Urine Negative Normal (applies to non-numeric re sults) [facility] Blood,Urine Negative Normal (applies to non-numeric resu lts) [facility] Bilirubin,Urine Negative Normal (applies to non-numeric results) [facility] Urobilinogen,Urine Norm 0.2-1 Normal (applies to non-numer ic results) [facility] Leukocyte Esterase,Urine Negative Normal (applies to non -numeric results) [facility] Nitrite,Urine Negative Normal (applies to non-numeric re sults) [facility] ID Date Data Source [id number] 05/19/2021 07:10:00 PM EDT [facility] Name Value Range Interpretation Code Description Data Kamila rce(s) Supporting Document(s) Respiratory specimen severe acute respir atory syndrome coronavirus 2 (SARS-CoV-2) RNA Negative (qualifier value) [facility] This lab was ordered by [facility] miah and reported by [facility]. ID Date Data Source [id number] 05/19/2021 07:55:00 PM EDT [facility] Negative results should be treated as pr [...] Certificate of Accreditation. Factsheets for healthcare providers: https://www.fda.gov/media/669813/download Factsheets for patients: https://www.fda.gov/media/878102/download The ID NOW Instrument is a rapid molecular in vitro diagnostic test utilizing an isothermal nucleic acid amplification technology intended for the qualitative detection of nucleic acid from the SARS-CoV-2 viral RNA. THIS IS A STATE REPORTABLE COMMUNICABLE DISEASE. Manual entry verified by Itzel Lowe 05/19/211953 Test Performed By: [facility] [address] [place] [address] Director: Colleen Rudolph MD Name Value Range Interpretation Code Description Data Kamila rce(s) Supporting Document(s) ID Date Data Source [id number] 04/10/2021 08:11:00 AM EDT [facility] Name Value Range Interpretation Code Description Data Kamila rce(s) Supporting Document(s) SARS-CoV-2 (COVID 19) NEGATIVE - SARS-CoV-2 (COVID19) [facility] This lab was ordered by [facility] a nd reported by [facility]. ID Date Data Source [id number] 01/30/2021 10:45:00 AM EST [facility] Name Value Range Interpretation Code Description Data Kamila rce(s) Supporting Document(s) SARS coronavirus 2 RNA Not Detected [facility] This lab was ordered by [facility] and reported by [facility]. ID Date Data Source [id number] 01/19/2021 12:24:00 PM EST [facility] Name Value Range Interpretation Code Description Data Kamila rce(s) Supporting Document(s) SARS-CoV-2 (COVID-19) RNA [Presence] in Respiratory specimen by JOANNA with probe detection Not Detected [facility] This lab was ordered by [facility] and reported by [employer] ID Date Data Source [id number] 11/24/2020 08:51:00 AM EST [facility] Name Value Range Interpretation Code Description Data Kamila rce(s) Supporting Document(s) SARS coronavirus 2 RNA [facility] This lab was ordered by [facility] and reported by [facility]. Procedure Social History Code Duration Value Status Description Data Source(s ) Smoking 06/15/2021 12:00:00 AM EDT Current Smoker completed Curre nt Smoker eCW1 ([facility]) Smoking 06/15/2021 12:00:00 AM EDT Current Smoker completed Curre nt Smoker eCW1 ([facility]) Vital Signs ID Date Data Source UNK Name Value Range Interpretation Code Description Data Source(s) Body temperature 97.0 [degF] 97.0 [degF] MEDENT ([facility] ) Body temperature 97.1 [degF] 97.1 [degF] [facility] ([facility] ) Body temperature 97.3 [degF] 97.3 [degF] [facility] ([facility], ) Body weight 185 [lb_av] 185 [lb_av] eCW1 ([facility]) Body mass index (BMI) [Ratio] 28.97 kg/m2 28.97 kg/m2 eCW1 ([facility]) Heart rate 76 /min 76 /min eCW1 ([facility]) Respiratory rate 18 /min 18 /min eCW1 ([facility]) Body temperature 97.6 [degF] 97.6 [degF] eCW1 ( [facility]) Systolic blood pressure 144 mm[Hg] 144 mm[Hg] e CW1 ([facility]) Diastolic blood pressure 78 mm[Hg] 78 mm[Hg] eCW1 ([facility]) Body height 67 [in_i] 67 [in_i] eCW1 ([facility]) ID Date Data Source [id number] 06/15/2021 07:40:00 AM EDT [facility] Name Value Range Interpretation Code Description Data Source(s) Weight Measurement Method [address] [facility] Weight (Calculated Kilograms) 81.[address] [facility] Weight [address] [facility] Temperature Source [address] [facility] Temperature 97.2 97.2 [facility] Respiratory Effort [address] [facility] Respiratory Rate 16 16 [facility] Pulse Assessment Method 4 4 C [facility] Pulse Rate [address] [facility] Height (Calculated Centimeters) 172.[address] [facility] Height [address] [facility] Blood Pressure 134/83 134/83 [facility] Body Mass Index (BMI) 27.2 27.2 [facility] Weight Measurement Method [address] [facility] Weight (Calculated Kilograms) 81.[address] [facility] Weight [address] [facility] Temperature Source [address] [facility] Temperature 97.2 97.2 [facility] Respiratory Effort [address] [facility] Respiratory Rate 16 16 [facility] Pulse Assessment Method 4 4 [facility] Pulse Rate [address] [facility] Height (Calculated Centimeters) 172.[address] [facility] Height [address] [facility] Blood Pressure 134/83 134/83 [facility] Body Mass Index (BMI) 27.2 27.2 [facility] Weight (Calculated Kilograms) 88.[address] [facility] Height (Calculated Centimeters) 175.[address] [facility] Body Mass Index (BMI) 28.8 28.8 [facility]
[2021-10-25] MEDS ORDERED: VANCOMYCIN 1000MG/20ML VIAL As Ordered ONE (14:20)
[2021-10-25] MEDS ORDERED: BUPIVACAINE/EPIN 0.5% 30 ML VIAL As Ordered ONE (14:30)
[2021-10-25] MEDS ORDERED: ONDANSETRON 4MG/2ML VIAL As Ordered ONE (14:51)
[2021-10-25] MEDS ORDERED: METOCLOPRAMIDE INJ 10MG/2ML VIAL (J2765 PER 1) As Ordered ONE (14:51)
[2021-10-25] MEDS ORDERED: ACETAMINOPHEN 1000MG 100ML IV BTL (OFIRMEV) (J0131 PER 10MG) As Ordered ONE (14:51)
[2021-10-25] MEDS ORDERED: fentaNYL 100 MCG/2 ML INJECTION (J3010) As Ordered ONE ×2 (14:51→15:15)
[2021-10-25] MEDS ORDERED: ePHEDrine SULFATE 25 MG/5 ML(5MG/ML) SYRINGE As Ordered ONE (14:51)
[2021-10-25] MEDS ORDERED: dexameTHASONE 4 MG/ML 1ML VIAL (J1100 PER 1MG) As Ordered ONE (14:51)
[2021-10-25] MEDS ORDERED: propofoL 200 MG/20 ML VIAL As Ordered ONE (14:51)
[2021-10-25] MEDS ORDERED: LIDOCAINE 2% 100MG/5ML SDV (FOR ANES.) As Ordered ONE (14:51)
[2021-10-25] MEDS ORDERED: MIDAZOLAM INJ 2MG/2ML VIAL (J2250 PER 1MG) As Ordered ONE (14:51)
[2021-10-25] MEDS: fentaNYL 100 MCG/2 ML INJECTION (J3010) IV PRN ×4 (15:15→15:40)
[2021-10-25] MEDS ORDERED: PERCOCET 5MG/325MG TAB PO PRN (15:20)
[2021-10-25] MEDS ORDERED: LR 1,000 ML IV SCH ×2 (15:20)
[2021-10-25] MEDS ORDERED: ONDANSETRON 4MG/2ML VIAL IV PRN (15:20)
--- NOTE | 2021-10-25 15:30 | ROOPDOC ---
[facility] Report Of Operation Report of Operation DATE OF PROCEDURE: 10/25/21 PREPROCEDURE DIAGNOSES: [Left upper extremity wound dehiscence]. POSTPROCEDURE DIAGNOSES: [Left upper extremity wound dehiscence]. PROCEDURE PERFORMED: [Left upper extremity I&D and primary wound closure.]. SURGEON: Sean mayer MD FOREIGN LANGUAGE INSTRUCTOR: MD ANESTHESIA: [General]. ESTIMATED BLOOD LOSS: Approximately [2] mL. COMPLICATIONS: [None]. REMARKS: . FINDINGS: [Point inch open wound clean wound with muscular bed.] SPECIMENS REMOVED: PROCEDURE NOTE: . DESCRIPTION OF PROCEDURE: [Patient met in holding area. H&P reviewed. Consent confirmed. Patient known to have necrotizing infection. Several previous I&D's. Primary closure to 3 weeks ago. Superior two thirds of the wound has healed. Wound dehiscence inferior third of the wound. Patient had an anterior approach. Necrotizing infection of the biceps. Treated by I&D and cleared of infection. After removal of sutures had a wound dehiscence inferior aspect of the wound. Patient brought into the operative room. Placed supine operating room table. Left arm abducted at the side. Given a general anesthetic in usual manner. Left upper extremity prepped and draped from the axilla down to the wrist. Once he is prepped and draped single suture removed from the middle of the incision. Surgical timeout performed. Patient given 2 g of Ancef preoperatively. Wound seems clean with red granulating tissue overlying the muscle. The skin edges were turned in. Infiltrated the local tissue around the wound with 10 cc of Marcaine 0.5% epinephrine. First 3 released the skin edges from the underlying musculature. We then trimmed the skin edges to get a clean expose surface. Then use blunt instrument to scrub the undersurface of the skin and the granulation tissue to encourage some bleeding. We irrigated again with copious amounts of saline. Once we had a clean bed and clean skin edges. Put 0.5 g vancomycin powder throughout the wound. We then closed the wound using vertical mattress to try and elevate the skin edges and reapproximate them primarily. Use 2-0 Prolene. We then placed sterile absorbent dressing over the wound. Placed a compression bandage around the arm from the mid forearm up to the axilla. Patient is then awakened from anesthesia. Transferred onto the stretcher. Taken to recovery in a stable manner.]. SEAN MONTANEZ MD Oct 25, 2021 15:30
[2021-10-25] MEDS: oxyCODONE 5MG TAB PO PRN ×2 (15:32→15:59)
[2021-10-25 16:40] VITALS: BP 117/78
== END 2021-10-25 16:46 | disposition home or self-care (01) ==
LOC: M SDC 12:13
PROVIDERS: ATTEND Orthopaedic Surgery
DX: T81.31XA Disruption of external operation (surgical) wound, not elsewhere classified, initial encounter (principal); F17.218 Nicotine dependence, cigarettes, with other nicotine-induced disorders; B18.2 Chronic viral hepatitis C; Z79.899 Other long term (current) drug therapy
CPT/HCPCS: 13160; J0131; J0690; J1100; J2250; J2405; J2765; J3010; J3370; U0002

== ENCOUNTER → 2021-11-02 | Outpatient (CLI) | payer MEDICARE, MEDICAID ==
[~2021-11-02] MED LIST changes: -LIDOCAINE 1% MDV 20ML VIAL SQ PRN; -LR 1,000 ML IV ONE; -ceFAZolin SOD 2 GM in IV 1 EA IV ONE
[2021-11-02 15:29] LABS: BASO # 0.1 10^3/uL (0.0-0.2); EOS # 0.2 10^3/uL (0.0-0.5); EOS % 2.9 % (0.0-3.0); HEMATOCRIT 40.2 % (42.0-52.0); HEMOGLOBIN 13.3 g/dl (13.5-17.5); LYMPH # 1.8 10^3/uL (1.5-5.0); MEAN CORPUSCULAR HEMOGLOBIN 30.9 pg (27.0-33.0); MEAN CORPUSCULAR HGB CONC 33.1 g/dl (32.0-36.5); MEAN CORPUSCULAR VOLUME 93.5 fl (80.0-96.0); MONO # 0.5 10^3/uL (0.0-0.8); MONO % 6.3 % (2.0-8.0); NEUTROPHILS # 4.6 10^3/uL (1.5-8.5); NEUTROPHILS % 64.4 % (36.0-66.0); PLATELET COUNT, AUTOMATED 246 10^3/uL (150-450); WHITE BLOOD COUNT 7.2 10^3/uL (4.0-10.0)
== END ==
LOC: M PLALAB 12:23
PROVIDERS: ATTEND Internal Medicine Infectious Disease
DX: M72.6 Necrotizing fasciitis (principal)

== ENCOUNTER 2021-11-20 16:54 | Emergency (ER) | payer MEDICAID, MEDICARE ==
[~2021-11-20] VITALS: Ht 170.2 cm; Wt 82.8 kg
[2021-11-20 16:54] VITALS: BP 165/100
[2021-11-20] MEDS ORDERED: KETOROLAC 60MG 2ML VIAL IM ONE (19:05)
[2021-11-20] MEDS ORDERED: LIDOCAINE VISCOUS 2% SOLN 15ML UDC SSP ONE (19:05)
[2021-11-20] MEDS ORDERED: KETO10TAB PO (19:19)
[2021-11-20] MEDS ORDERED: HYDR-3713 PO (19:19)
[2021-11-20] MEDS ORDERED: LIDVISCBTL SSP (19:19)
== END 2021-11-20 19:59 | disposition home or self-care (01) ==
LOC: M ED 16:54
DX: G89.18 Other acute postprocedural pain (principal); R68.84 Jaw pain; B18.2 Chronic viral hepatitis C
CPT/HCPCS: 96372; 99282; J1885